=== PATIENT | male | born 1945 | race Hispanic/Latino ===

== ENCOUNTER 2018-03-08 10:30 | Inpatient (IN) | payer OTHER ==
[~2018-03-08] VITALS: Ht 152.4 cm; Wt 85.7 kg
[~2018-03-08 10:30] MED LIST: ASPIRIN81 M1 PO; ATORVASTATIN CA20 MG PO; BACTRIM DS TAB1 EACH PO; CEFTIN500 MG PO; CIPRO500 MG PO; FINASTERIDE5 MG PO; FLOMAX0.4 MG PO; FORTAMET500 MG PO; FUROSEMIDE40 MG PO; GABAPENTIN100 MG PO; GLIPIZIDE ER2.5 MG PO; GLIPIZIDE XL2.5 MG PO; GLUCOPHAGE500 MG PO; HEMOCYTE PLUS1 EACH PO; KLOR-CON 1010 MEQ PO; LISINOPRIL20 MG PO; METOPROLOL TART25 MG PO; RANEXA500 MG PO; SIMVASTATIN20 MG PO; TYLENOL PM EX-1 EACH PO; VICODIN HP TAB1 EACH PO
[2018-03-08] MEDS ORDERED: ASPIRIN 81 MG CHEW TAB PO STA (11:04)
[2018-03-08 11:33] LABS: BASOPHILS % 0.5 % (0.0-1.0); EOSINOPHILS # (AUTO) 0.2 (0.0-0.4); EOSINOPHILS % 2.9 % (0.0-6.0); HEMATOCRIT 39.6 % (38.2-49.6); HEMOGLOBIN 13.1 g/dL (14.0-18.0); LYMPHOCYTES # (AUTO) 1.6 (1.0-3.2); LYMPHOCYTES % 19.4 % (18.0-39.1); MEAN CORPUSCULAR HEMOGLOBIN 30.8 pg (28-32); MEAN CORPUSCULAR HGB CONC 33.1 g/dL (31-35); MONOCYTES # (AUTO) 0.6 (0.2-0.8); MONOCYTES % 6.7 % (4.4-11.3); NEUTROPHILS # (AUTO) 5.8 (2.1-6.9); NEUTROPHILS % 69.8 % (38.7-80.0); PLATELET COUNT 236 x10e3/uL (140-360); RED BLOOD COUNT 4.26 x10e6/uL (4.3-5.7); RED CELL DISTRIBUTION WIDTH 13.4 % (11.7-14.4)
--- NOTE | 2018-03-08 11:44 | Diagnostic Imaging Report ---
PROCEDURE: Frontal and lateral views of the chest. COMPARISON: Chest radiograph 05/01/2015 INDICATIONS: COUGH/SOB/FLUID ON LUNGS FINDINGS: Lines/tubes: None. Lungs: The lungs are moderately inflated. There is central pulmonary venous congestion with diffuse interstitial opacities. Pleura: There is no pleural effusion or pneumothorax. Heart and mediastinum: Stable mild enlargement of the cardiac silhouette. CABG clips. Bones: No acute bony abnormality. Median sternotomy wires. IMPRESSION: Findings suggestive of cardiogenic interstitial edema. Dictated by: Naresh Butt M.D. on 03/08/2018 at 11:48 Electronically approved by: Naresh Butt M.D. on 03/08/2018 at 11:48
[2018-03-08 11:49] LABS: ALANINE AMINOTRANSFERASE 22 IU/L (0-55); ALBUMIN 3.8 g/dL (3.5-5.0); ALBUMIN/GLOBULIN RATIO 0.9 (0.8-2.0); ALKALINE PHOSPHATASE 104 IU/L (40-150); ANION GAP 18.1 mmol/L (8-16); BLOOD UREA NITROGEN 16 mg/dL (7-26); BUN/CREATININE RATIO 16 (6-25); CALCIUM 9.8 mg/dL (8.4-10.2); CARBON DIOXIDE 21 mmol/L (22-29); CHLORIDE 104 mmol/L (98-107); CREATINE KINASE 115 IU/L (30-200); CREATININE, SERUM 1.02 mg/dL (0.72-1.25); EST GLOMERULAR FILTRATION RATE > 60 ML/MIN (60-); GLUCOSE 161 mg/dL (74-118); POTASSIUM 4.1 mmol/L (3.5-5.1); SODIUM 139 mmol/L (136-145)
[2018-03-08 14:00] VITALS: BP 133/68
[2018-03-08 14:31] VITALS: BP 133/68
[2018-03-08] MEDS ORDERED: XOPENEX HFA15 GM INH (15:18)
[2018-03-08] MEDS ORDERED: LASIX40 MG PO (15:18)
[2018-03-08] MEDS ORDERED: GLIMEPIRIDE2 MG PO (15:18)
[2018-03-08] MEDS ORDERED: KLOR-CON 1010 MEQ PO (15:18)
[2018-03-08] MEDS ORDERED: LOSARTAN POTASS25 MG PO (15:18)
[2018-03-08] MEDS ORDERED: BENZONATATE100 MG PO (15:18)
[2018-03-08] MEDS ORDERED: ACETAMINOPHEN325 M1 PO (15:18)
[2018-03-08] MEDS ORDERED: CEFDINIR300 MG PO (15:18)
[2018-03-08] MEDS ORDERED: NITROSTAT0.4 MG SL (15:35)
[2018-03-08] MEDS ORDERED: NITROGLYCERIN 0.4 MG SUBL SL PRN (16:15)
[2018-03-08] MEDS ORDERED: LEVALBUTEROL 15 GM AERO IH PRN (16:15)
[2018-03-08] MEDS ORDERED: LEVALBUTEROL TARTRATE INH PRN (16:15)
[2018-03-08] MEDS ORDERED: BENZONATATE 100 MG CAP PO PRN (16:15)
[2018-03-08] MEDS ORDERED: ACETAMINOPHEN 325 MG TAB PO PRN (16:15)
[2018-03-08] MEDS: INSULIN LISPRO 100 UNIT/1 ML 3ML VIAL SQ SCH ×2 (16:30→21:39)
[2018-03-08] MEDS ORDERED: INSULIN LISPRO 100 UNIT/1 ML 3ML VIAL SQ SCH (16:30)
[2018-03-08] MEDS ORDERED: DEXTROSE 50% SYRINGE 50 ML IV PRN (16:30)
[2018-03-08] MEDS ORDERED: NON-FORMULARY MEDICATION (Aspirin 81 MG) PO SCH (17:00)
[2018-03-08 17:08] VITALS: BP 137/71
[2018-03-08] MEDS: FUROSEMIDE INJ 10 MG/ML 4 ML VIAL IV SCH (17:30)
[2018-03-08] MEDS: ASPIRIN 81 MG CHEW TAB PO SCH (17:30)
[2018-03-08] MEDS: RANOLAZINE 500 MG TABSR PO SCH (17:32)
[2018-03-08 19:50] LABS: CREATINE KINASE 80 IU/L (30-200)
[2018-03-08 20:00] VITALS: BP 110/55
[2018-03-08 20:50] VITALS: BP 110/55
[2018-03-08] MEDS: ATORVASTATIN 20 MG TAB PO SCH (21:39)
[2018-03-09] VITALS (8 sets, daily range): BP systolic 110–163; BP diastolic 61–80
[2018-03-09 03:59] LABS: CREATINE KINASE MB 0.7 ng/mL (0-5.0)
[2018-03-09] MEDS ORDERED: NON-FORMULARY MEDICATION (Potassium Chloride (Klor-Con 10) 10 MEQ) PO SCH (09:00)
--- NOTE | 2018-03-09 09:34 | History and Physical ---
PCP: Dr. Slava Silva CHIEF COMPLAINT: Shortness of breath. HISTORY: A 72-year-old male with chronic congestive heart failure with history of bypass surgery back in 2008, 3-vessel bypass. Because he was drinking a lot of water at home, he developed vascular congestion. He went to the emergency room for evaluation per his PCP after a chest x-ray showed that he is having increasing fluid retention. Chest x-ray showed vascular congestion. No consolidation. The patient's laboratory is WBC is 8.2. Patient is stable at this time. IV Lasix was given and the patient is doing much better. PAST MEDICAL HISTORY: Hypertension, congestive heart failure, diabetes, type 2, hyperlipidemia, coronary artery disease with previous bypass surgery. PAST SURGICAL HISTORY: Coronary artery bypass surgery in 2008 of 3 vessels. SOCIAL HISTORY: The patient is an ex-smoker. He quit years ago. No alcohol consumption. ALLERGIES: NO KNOWN ALLERGIES. HOME MEDICATIONS: List reviewed. REVIEW OF SYSTEMS: As mentioned. Cough, leg swelling. No abdominal or chest pain. PHYSICAL EXAMINATION VITAL SIGNS: Temperature is 98, blood pressure 142/80, pulse rate 62, respirations 18. GENERAL: The patient is in no acute distress. He is awake. HEENT: Normocephalic, atraumatic and anicteric. NECK: Supple grossly. No JVD. PULMONARY: Diminished breath sounds at bases with some rales. CARDIOVASCULAR: S1 and S2. Regular rhythm. ABDOMEN: Soft and unremarkable. Obese. EXTREMITIES: Trace edema. NEUROLOGIC: There is no focal deficit. LABORATORY: Reviewed. The WBC is 8.2, hemoglobin 13, hematocrit 39, and platelets 236,000. Sodium 139, potassium 4.1, chloride 104, bicarb 21, BUN 16, creatinine 1, glucose is 161. IMPRESSION: Congestive heart failure, [id number] systolic dysfunction. PLAN: Observation. Resume home medications. Insulin sliding scale coverage. CT of the chest without contrast. Will monitor the patient closely. Patient is in observation. Job#: [id number] [facility]
[2018-03-09] MEDS: ASPIRIN 81 MG CHEW TAB PO SCH ×2 (10:25→17:16)
[2018-03-09] MEDS: LOSARTAN POTASSIUM 25 MG TAB PO SCH (10:25)
[2018-03-09] MEDS: INSULIN LISPRO 100 UNIT/1 ML 3ML VIAL SQ SCH ×4 (10:25→21:10)
[2018-03-09] MEDS: LISINOPRIL 10 MG TAB PO SCH (10:25)
[2018-03-09] MEDS: FUROSEMIDE INJ 10 MG/ML 4 ML VIAL IV SCH ×2 (10:25→17:16)
[2018-03-09] MEDS: GLIMEPIRIDE 2 MG TAB PO SCH (10:25)
[2018-03-09] MEDS: POTASSIUM CHLORIDE 10 MEQ TABCR PO SCH (10:25)
[2018-03-09] MEDS: RANOLAZINE 500 MG TABSR PO SCH ×2 (10:26→17:16)
--- NOTE | 2018-03-09 11:03 | Diagnostic Imaging Report ---
PROCEDURE: CT CHEST WITHOUT CONTRAST CT scan of the chest WITHOUT intravenous contrast, using standard protocol. TECHNIQUE: The chest was scanned utilizing a multidetector helical scanner from the apex to the level of the adrenal glands. No IV contrast was administered because of referring physician request. Coronal and sagittal multiplanar reformations were obtained. COMPARISON: Chest radiograph 03/08/2018. INDICATIONS: short of breath FINDINGS: Lines/tubes: None. Lungs and Airways: Traction bronchiectasis with interlobular septal thickening, ground glass opacities and multiple stacked juxtapleural cysts in a honeycombing configuration without a definite apical-basal gradient. No airspace consolidation or gross mass lesion. Pleura: No pleural effusion or pneumothorax. Heart and mediastinum: Postsurgical changes of the mediastinum related to coronary artery bypass graft. Normal heart size. No pericardial effusion. No axillary, hilar, or mediastinal lymphadenopathy. The esophagus is mildly patulous. Great vessel origins are normal in caliber with a common origin of the innominate and left common carotid artery from the aortic arch. Atherosclerotic calcification of the aortic arch and solomon coronary arteries. Soft tissues: Normal. Abdomen: Visualized portions of the liver, gallbladder, spleen, pancreas, and adrenal glands are unremarkable. Bones: No osseous destructive lesions. Postsurgical changes of median sternotomy. Diffuse osteopenia with multilevel degenerative disc changes of the partially visualized lower cervical and thoracic spine. IMPRESSION: Pulmonary findings compatible with interstitial lung disease, specifically usual interstitial pneumonia (UIP). This may be idiopathic, or seen in the setting of collagen vascular disease or drug toxicities (amiodarone, bleomycin). Atherosclerotic vascular disease status post CABG. Dictated by: Manav Greco M.D. on 03/09/2018 at 11:07 Electronically approved by: Manav Greco M.D. on 03/09/2018 at 11:07
--- NOTE | 2018-03-09 12:41 | Consultation ---
DATE OF CONSULTATION: March 08, 2018 CARDIOLOGY CONSULTATION REASON FOR CONSULTATION: CHF. CONSULTING PHYSICIAN: Dr. Kin Skinner. HPI: This is a 72-year-old male that presented with shortness of breath. According to the patient, he was having coughing, shortness of breath, and orthopnea. He went to see his PCP and he was told he got some fluid in his lungs and was asked to go to the emergency room for further evaluation. He has a history of chronic diastolic CHF and CAD. He follows up with Dr. Manav Santo, cardiology in the clinic. He denied any chest pain, any dizziness, any diaphoresis or headache. Troponin was negative. EKG showed normal sinus rhythm with no ST abnormalities. BNP was 105. He had chest x-ray done that showed some central pulmonary venous congestion and with final findings of cardiogenic interstitial edema. PAST MEDICAL HISTORY: CHF, hypertension, diabetes, asthma, CAD, hyperlipidemia, prostate hypertrophy, obesity, fatty liver, and neuropathy. PAST SURGICAL HISTORY: Appendectomy and CABG. FAMILY HISTORY: Positive for diabetes and hypertension. SOCIAL HISTORY: He lives at home with family. He quit smoking 20 years ago. MEDICATIONS: He was on Ranexa, potassium, nitroglycerin, metformin, losartan, Xopenex, glimepiride, Lasix, Omnicef, benzonatate, atorvastatin, aspirin, Tylenol, and finasteride. ALLERGIES: HE IS ALLERGIC TO IODINE. REVIEW OF SYSTEMS: Negative except those mentioned above. PHYSICAL EXAMINATION VITAL SIGNS: Temperature 97, heart rate 64, blood pressure 131/77, respirations 18, oxygen saturation 95% on room air. GENERAL: He is obese, awake, alert, and oriented x3. HEENT: Mucous membrane moist. NECK: Supple. LUNGS: Bilateral with decreased breath sounds. CARDIOVASCULAR: S1 and S2 present. ABDOMEN: Soft. NEUROLOGIC: Intact. EXTREMITIES: With no edema. LABORATORY DATA: Sodium 139, potassium 4.1, chloride 104, CO2 of 21, BUN 16, creatinine 1.02, glucose 161. White blood cells 8.24, hemoglobin 13.1, hematocrit 39.6, platelets 236. IMPRESSION 1. Chronic diastolic congestive heart failure. 2. Coronary artery disease with coronary artery bypass graft. 3. Diabetes. 4. Hypertension. 5. Hyperlipidemia. 6. Obesity. ASSESSMENT AND PLAN: Pending echo to assess the LV and the valve function. Due to the shortness of breath, we will go ahead and get a CT chest to rule out any PE. We will continue diuretic, AYAN and add low dose beta-vidal. Further cardiac workup pending clinical course. Thank you for this consultation. DICTATED BY ESTEFANÍA CRAIN NP Job#: [id number] VAS
[2018-03-09] MEDS: ATORVASTATIN 20 MG TAB PO SCH (20:49)
[2018-03-10] VITALS: BP 104/53
[2018-03-10 04:00] VITALS: BP 142/68
[2018-03-10 07:15] VITALS: BP 134/69
[2018-03-10] MEDS: INSULIN LISPRO 100 UNIT/1 ML 3ML VIAL SQ SCH ×2 (07:30→11:30)
[2018-03-10 07:48] VITALS: BP 134/69
[2018-03-10] MEDS ORDERED: CARVEDILOL 3.125 MG TAB PO SCH (09:00)
[2018-03-10] MEDS: GLIMEPIRIDE 2 MG TAB PO SCH (09:09)
[2018-03-10] MEDS: ASPIRIN 81 MG CHEW TAB PO SCH (09:09)
[2018-03-10] MEDS: LOSARTAN POTASSIUM 25 MG TAB PO SCH (09:09)
[2018-03-10] MEDS: FUROSEMIDE INJ 10 MG/ML 4 ML VIAL IV SCH (09:09)
[2018-03-10] MEDS: RANOLAZINE 500 MG TABSR PO SCH (09:10)
[2018-03-10] MEDS: LISINOPRIL 10 MG TAB PO SCH (09:10)
[2018-03-10] MEDS: POTASSIUM CHLORIDE 10 MEQ TABCR PO SCH (09:11)
[2018-03-10 11:58] VITALS: BP 102/61
[2018-03-10] MEDS ORDERED: LEVOFLOXACIN 500 MG TAB PO ONE ×2 (14:30→15:00)
[2018-03-10 15:15] VITALS: BP 125/73
[2018-03-10] MEDS ORDERED: COREG3.125 MG PO (15:20)
[2018-03-10] MEDS ORDERED: TESSALON PERLE100 MG PO (15:21)
[2018-03-10] MEDS ORDERED: LEVAQUIN250 MG PO (15:22)
== END 2018-03-10 16:09 | disposition home or self-care (01) | DRG 293 ==
LOC: ER 10:30 → ERHOLD 12:31 → MED/SURG3 13:41
PROVIDERS: ADMIT Internal Medicine; ATTEND Internal Medicine
DX: I11.0 Hypertensive heart disease with heart failure (principal); I50.33 Acute on chronic diastolic (congestive) heart failure; I25.10 Atherosclerotic heart disease of native coronary artery without angina pectoris; E11.9 Type 2 diabetes mellitus without complications; Z87.891 Personal history of nicotine dependence; Z95.1 Presence of aortocoronary bypass graft; E78.5 Hyperlipidemia, unspecified; E66.9 Obesity, unspecified; Z68.38 Body mass index [BMI] 38.0-38.9, adult
CPT/HCPCS: 36415; 71046; 71250; 80053; 82550; 82553; 82948; 83735; 83880; 84484; 85025; 93005; 93306; 96365; 99284; J1940

== ENCOUNTER 2018-09-22 22:57 | Emergency (ER) | payer OTHER ==
[~2018-09-22] VITALS: Ht 152.4 cm; Wt 85.7 kg
[~2018-09-22 22:57] MED LIST changes: +ACETAMINOPHEN325 M1 PO; +BENZONATATE100 MG PO; +CEFDINIR300 MG PO; +COREG3.125 MG PO; +GLIMEPIRIDE2 MG PO; +LASIX40 MG PO; +LEVAQUIN250 MG PO; +LOSARTAN POTASS25 MG PO; +NITROSTAT0.4 MG SL; +TESSALON PERLE100 MG PO; +XOPENEX HFA15 GM INH
--- NOTE | 2018-09-23 01:22 | Diagnostic Imaging Report ---
CHEST 2 VIEWS, Technique: CHEST 2 VIEWS Comparison: 03/09/2018 Clinical history: Cough DISCUSSION: Stable mildly enlarged cardiomediastinal silhouette status post median sternotomy. Low lung volumes with unchanged coarse bilateral reticular opacities, likely related to scarring/fibrosis. No effusion or pneumothorax. IMPRESSION: Stable chest. Signed by: Dr Dorothy Michaels MD on 09/23/2018 1:19 AM
[2018-09-23 01:26] VITALS: BP 127/79
== END 2018-09-23 01:36 | disposition home or self-care (01) ==
LOC: ER 22:57
DX: R05 Cough (principal); J45.20 Mild intermittent asthma, uncomplicated
CPT/HCPCS: 71046; 99283

== ENCOUNTER 2018-12-22 19:20 | Observation (INO) | payer OTHER ==
[~2018-12-22] VITALS: Ht 152.4 cm; Wt 85.7 kg
[2018-12-22 20:15] LABS: BASOPHILS % 0.3 % (0.0-1.0); EOSINOPHILS # (AUTO) 0.2 (0.0-0.4); EOSINOPHILS % 2.1 % (0.0-6.0); HEMATOCRIT 39.6 % (38.2-49.6); LYMPHOCYTES # (AUTO) 0.7 (1.0-3.2); LYMPHOCYTES % 9.1 % (18.0-39.1); MEAN CORPUSCULAR HEMOGLOBIN 29.9 pg (28-32); MEAN CORPUSCULAR HGB CONC 32.8 g/dL (31-35); MONOCYTES # (AUTO) 0.4 (0.2-0.8); MONOCYTES % 5.7 % (4.4-11.3); NEUTROPHILS # (AUTO) 6.2 (2.1-6.9); NEUTROPHILS % 82.3 % (38.7-80.0); PLATELET COUNT 159 x10e3/uL (140-360); RED BLOOD COUNT 4.35 x10e6/uL (4.3-5.7); RED CELL DISTRIBUTION WIDTH 14.5 % (11.7-14.4)
[2018-12-22 20:22] LABS: CLARITY,URINE SL CLOUDY (CLEAR); COLOR,URINE YELLOW (YELLOW)
[2018-12-22 20:23] LABS: BILIRUBIN,URINE NEGATIVE (NEGATIVE); KETONES,URINE NEGATIVE (NEGATIVE); LEUKOCYTE ESTERASE ,URINE TRACE (NEGATIVE); NITRITE,URINE NEGATIVE (NEGATIVE); PROTEIN,URINE DIPSTICK TRACE (NEGATIVE); URINE UROBILINOGEN 0.2 mg/dL (0.2 - 1)
[2018-12-22 20:25] LABS: INR 1.01; PROTHROMBIN TIME 13.8 seconds (11.9-14.5)
[2018-12-22 20:29] LABS: MAGNESIUM 1.9 MG/DL (1.3-2.1)
[2018-12-22 20:32] LABS: BACTERIA,URINE MODERATE /HPF; EPITHELIAL CELLS,URINE FEW /LPF; RBC,URINE 0-5 /HPF (0-5)
[2018-12-22 20:33] LABS: ALANINE AMINOTRANSFERASE 11 IU/L (0-55); ALBUMIN 3.7 g/dL (3.5-5.0); ALKALINE PHOSPHATASE 74 IU/L (40-150); ANION GAP 15.1 mmol/L (8-16); BLOOD UREA NITROGEN 16 mg/dL (7-26); BUN/CREATININE RATIO 20 (6-25); CALCIUM 9.4 mg/dL (8.4-10.2); CARBON DIOXIDE 24 mmol/L (22-29); CHLORIDE 99 mmol/L (98-107); CREATINE KINASE 52 IU/L (30-200); CREATININE, SERUM 0.81 mg/dL (0.72-1.25); EST GLOMERULAR FILTRATION RATE > 60 ML/MIN (60-); GLUCOSE 124 mg/dL (74-118); POTASSIUM 3.1 mmol/L (3.5-5.1); SODIUM 135 mmol/L (136-145)
[2018-12-22 20:38] LABS: AMYLASE 84 U/L (25-125); LIPASE 90 U/L (8-78)
--- NOTE | 2018-12-22 21:26 | Diagnostic Imaging Report ---
EXAMINATION: CHEST 2 VIEWS INDICATION: Chest pain. COMPARISON: Chest x-ray 09/23/2018. CT chest 03/09/2018. FINDINGS: PA and lateral views TUBES and LINES: Median sternotomy wires and mediastinal clips are in place. LUNGS: Lungs are not well inflated. Stable findings of pulmonary fibrosis with UIP appearance based on CT chest 03/09/2018. There is no evidence of pneumonia or pulmonary edema. PLEURA: No pleural effusion or pneumothorax. HEART AND MEDIASTINUM: Cardiac size is mildly enlarged. BONES AND SOFT TISSUES: No acute osseous lesion. Soft tissues are unremarkable. UPPER ABDOMEN: No free air under the diaphragm. IMPRESSION: Unchanged pulmonary fibrosis. New underlying pneumonia is difficult to evaluate given the extensive pulmonary fibrosis. Signed by: Dr. Omid Mcgee M.D. on 12/22/2018 9:23 PM
[2018-12-22] MEDS ORDERED: POTASSIUM CHLORIDE 20 MEQ TAB CR PO STA (21:53)
[2018-12-22] MEDS ORDERED: SODIUM CHLORIDE FLUSH 10 ML SYR INJ PRN (22:00)
[2018-12-22] MEDS: AZITHROMYCIN 500MG/NS 250 ML 250 ML IV SCH (22:00)
[2018-12-22] MEDS ORDERED: ASPIRIN 81 MG CHEW TAB PO ONE (22:00)
[2018-12-22] MEDS ORDERED: ONDANSETRON HCL INJ 2MG/ML 2ML 2 MG/ML VIAL IV PRN (22:00)
[2018-12-22] MEDS: CEFTRIAXONE SOD 1 GM/NS 50 ML 50 ML IV SCH (22:29)
--- NOTE | 2018-12-22 23:28 | NUR ---
Received report from SERAFIN Brewer nurse. Patient came via wheelchair. Patient in no pain or distress. call light within reach. Patient is A&Ox3.
[2018-12-22 23:50] VITALS: BP 145/64
[2018-12-22 23:53] VITALS: BP 145/64
[2018-12-23] VITALS (7 sets, daily range): BP systolic 115–145; BP diastolic 62–81
[2018-12-23 04:59] LABS: CREATINE KINASE MB 1.2 ng/mL (0-5.0)
[2018-12-23 06:01] LABS: BASOPHILS % 0.4 % (0.0-1.0); EOSINOPHILS # (AUTO) 0.2 (0.0-0.4); EOSINOPHILS % 2.8 % (0.0-6.0); HEMATOCRIT 37.8 % (38.2-49.6); HEMOGLOBIN 12.4 g/dL (14.0-18.0); LYMPHOCYTES # (AUTO) 0.9 (1.0-3.2); LYMPHOCYTES % 16.9 % (18.0-39.1); MEAN CORPUSCULAR HEMOGLOBIN 30.2 pg (28-32); MEAN CORPUSCULAR HGB CONC 32.8 g/dL (31-35); MONOCYTES # (AUTO) 0.4 (0.2-0.8); MONOCYTES % 8.2 % (4.4-11.3); NEUTROPHILS # (AUTO) 3.8 (2.1-6.9); NEUTROPHILS % 71.1 % (38.7-80.0); PLATELET COUNT 142 x10e3/uL (140-360); RED BLOOD COUNT 4.11 x10e6/uL (4.3-5.7); RED CELL DISTRIBUTION WIDTH 14.4 % (11.7-14.4)
[2018-12-23 06:21] LABS: ANION GAP 13.2 mmol/L (8-16); BLOOD UREA NITROGEN 12 mg/dL (7-26); BUN/CREATININE RATIO 15 (6-25); CALCIUM 9.2 mg/dL (8.4-10.2); CARBON DIOXIDE 25 mmol/L (22-29); CHLORIDE 103 mmol/L (98-107); CREATININE, SERUM 0.79 mg/dL (0.72-1.25); EST GLOMERULAR FILTRATION RATE > 60 ML/MIN (60-); GLUCOSE 133 mg/dL (74-118); POTASSIUM 4.2 mmol/L (3.5-5.1); SODIUM 137 mmol/L (136-145)
[2018-12-23] MEDS ORDERED: POTASSIUM CHLORIDE 20 MEQ TAB CR PO SCH (07:00)
--- NOTE | 2018-12-23 07:11 | NUR ---
Gave report to oncoming nurse. Call light within reach. Patient in bed.
--- NOTE | 2018-12-23 08:44 | Diagnostic Imaging Report ---
EXAMINATION: CHEST SINGLE (PORTABLE) INDICATION: Shortness of breath. COMPARISON: Chest radiograph 12/22/2018. CT chest 03/09/2018. FINDINGS: TUBES and LINES: Median sternotomy wires and mediastinal clips are in place. LUNGS: Lungs are not well inflated. Stable findings of pulmonary fibrosis with UIP appearance based on CT chest 03/09/2018. No new consolidation. PLEURA: No pleural effusion or pneumothorax. HEART AND MEDIASTINUM: Cardiac size is mildly enlarged. BONES AND SOFT TISSUES: No acute osseous abnormality. UPPER ABDOMEN: No free air under the diaphragm. IMPRESSION: Unchanged pulmonary fibrosis although superimposed pneumonia is difficult to exclude. No new consolidation. Signed by: Dr. Adelso Moon MD on 12/23/2018 8:40 AM
[2018-12-23] MEDS: AZITHROMYCIN 500MG/NS 250 ML 250 ML IV SCH (08:48)
[2018-12-23] MEDS ORDERED: FUROSEMIDE INJ 10 MG/ML 4 ML VIAL IV SCH (09:00)
--- NOTE | 2018-12-23 11:18 | NUR ---
SW met with patient to notify him of the OBSERVATION status. SW provided him with the [facility] letter in which he signed and copy placed in chart.
[2018-12-23] MEDS ORDERED: LEVALBUTEROL 15 GM AERO IH PRN (13:15)
[2018-12-23] MEDS ORDERED: DEXTROSE 50% SYRINGE 50 ML IV PRN (13:15)
[2018-12-23] MEDS ORDERED: ACETAMINOPHEN 325 MG TAB PO PRN (13:15)
[2018-12-23] MEDS ORDERED: BENZONATATE 100 MG CAP PO PRN (13:15)
[2018-12-23] MEDS: METHYLPREDNISOLONE SOD SUCC 40 MG/ML VIAL 1ML IV SCH ×2 (14:33→21:21)
[2018-12-23 14:59] LABS: CREATINE KINASE MB 1.2 ng/mL (0-5.0)
[2018-12-23] MEDS ORDERED: GUAIFENESIN/CODEINE 10 ML CUP PO PRN (15:45)
--- NOTE | 2018-12-23 16:03 | Diagnostic Imaging Report ---
EXAM: CT Chest without contrast INDICATION: Shortness of breath. COMPARISON: Chest radiograph 12/23/2018. TECHNIQUE: Chest was scanned utilizing a multidetector helical scanner from the lung apex through the level of the adrenal glands without administration of IV contrast. Coronal and sagittal reformations were obtained. Routine protocol was performed. RADIATION DOSE: Total DLP: 431.7 mGy*cm Dose modulation, iterative reconstruction, and/or weight based adjustment of the mA/kV was utilized to reduce the radiation dose to as low as reasonably achievable. COMPLICATIONS: None FINDINGS: LINES/ TUBES: None. LUNGS AND AIRWAYS: The central airways are patent. There are bilateral diffuse findings of pulmonary fibrosis with peripheral predominant interstitial opacities, architectural distortion, and bronchiectasis. There is associated honeycombing, most pronounced within the right greater than left upper lobes, middle lobe, and right lower lobe. There are multifocal groundglass opacities, for example in the right lower lobe on series 3, image 53, right upper lobe on image 24, and left upper lobe on image 45. No evidence of lobar consolidative opacity. Diffuse opacity limits evaluation for underlying pulmonary nodule. PLEURA: The pleural spaces are clear. HEART AND MEDIASTINUM: The thyroid gland is normal. No mediastinal, hilar or axillary lymphadenopathy. Subcentimeter mediastinal lymph nodes, not meeting size criteria for enlargement. There is mild cardiomegaly. No evidence of pericardial effusion. Extensive atherosclerotic coronary calcifications. Scattered atherosclerotic calcifications of the thoracic aorta and branch vessels. UPPER ABDOMEN: Limited non-contrast views of the upper abdomen. Subcentimeter hypodensity within the spleen is incompletely characterized. BONES: The visualized bony thorax is within normal limits. SOFT TISSUES: Unremarkable. IMPRESSION: Findings of diffuse fibrotic interstitial lung disease. Differential includes UIP versus fibrotic NSIP. Multifocal patchy ground glass opacities may be secondary to fibrotic lung changes, although superimposed pneumonia is possible in the appropriate clinical context. Extensive coronary atherosclerosis. Signed by: Dr. Adelso Moon MD on 12/23/2018 4:00 PM
[2018-12-23] MEDS: INSULIN LISPRO 100 UNIT/1 ML 3ML VIAL SQ SCH ×2 (16:35→21:22)
[2018-12-23] MEDS ORDERED: IPRATROPIUM BROMIDE 0.03% NASAL SPRAY 30ML SCH (17:00)
[2018-12-23] MEDS: PANTOPRAZOLE 40 MG 10ML VIAL IV SCH (17:00)
[2018-12-23] MEDS: METFORMIN HCL 500 MG TAB PO SCH (17:48)
[2018-12-23] MEDS: ASPIRIN 81 MG CHEW TAB PO SCH (17:48)
[2018-12-23] MEDS: FLUTICASONE PROPIONATE NASAL SPRAY NS SCH (17:48)
[2018-12-23] MEDS: CARVEDILOL 3.125 MG TAB PO SCH (17:48)
[2018-12-23] MEDS: RANOLAZINE 500 MG TABSR PO SCH (17:49)
--- NOTE | 2018-12-23 19:14 | History and Physical ---
PRIMARY CARE PHYSICIAN: CHIEF COMPLAINT: Shortness of breath. HISTORY: A 73-year-old male with baseline chronic congestive heart failure with history of coronary artery disease, three vessel coronary artery bypass graft surgery back in 2008, came in with increasing shortness of breath. The patient does have a history of COPD and also pulmonary fibrosis. He was an ex-smoker. The patient has some wheezing. He did not have any fever. Currently, the patient did not require any oxygen. He is breathing much better after IV Lasix. The patient is otherwise stable. PAST MEDICAL HISTORY: Congestive heart failure, coronary artery disease with bypass graft surgery, diabetes type 2, dyslipidemia, hypertension, COPD. PAST SURGICAL HISTORY: Coronary artery bypass surgery in 2009, three vessel bypass. SOCIAL HISTORY: The patient quit smoking many, many years ago. No alcohol. No recreational drugs. ALLERGIES: TO IODINE. HOME MEDICATION: List reviewed. REVIEW OF SYSTEMS: Wheezing, shortness of breath and cough. PHYSICAL EXAMINATION: VITAL SIGNS: Temperature is 97, blood pressure 118/62, pulse rate 72, respirations 18. GENERAL: The patient is not in acute distress. He is awake. HEENT: Normocephalic, atraumatic. Anicteric. NECK: Supple grossly. PULMONARY: Diminished breath sounds bilaterally with some rhonchi and wheezing. CARDIOVASCULAR: S1, S2. Regular rate and rhythm. ABDOMEN: Soft, nontender, and nondistended. EXTREMITIES: No cyanosis or edema. NEUROLOGIC: No focal deficit. Chest x-ray is pulmonary fibrosis. IMPRESSION: 1. Acute exacerbation of pulmonary fibrosis associated with rhonchi, wheezing and cough on history and examination. 2. Compensated congestive heart failure. 3. Multiple chronic baseline problems. PLAN: Continue with IV Solu-Medrol. Nebulizer treatment. Antibiotics. CT of the chest without contrast. Resume home medication. MD JAGDEEP Zhou/DINAH /[id number]
--- NOTE | 2018-12-23 19:40 | Consultation ---
DATE OF CONSULTATION: Pulmonary Critical Care Consultation CHIEF COMPLAINT: Cough and dyspnea. HISTORY OF PRESENT ILLNESS: The patient is a 73-year-old man. He has a history of prior coronary artery disease and a CABG. He also has a history of hypertension and diabetes. He has had interstitial changes on his x-ray and CT scan for several years. He uses some nebulizers at home as well as inhalers. He now complains of worsening cough. He notes that the cough was so bad he had some vomiting. He reports some postnasal drainage and rhinorrhea. He also reports some heartburn and indigestion. He notes some dyspnea with exertion as well. He came to the emergency department complaining of dyspnea and cough. He received some Solu-Medrol along with antibiotics and bronchodilators. He reports some improvement with this. PAST SURGICAL HISTORY: 1. Status post coronary artery bypass grafting. 2. Status post appendectomy. PAST MEDICAL HISTORY: 1. Hypertension. 2. Diabetes. 3. Prostatic hypertrophy. 4. Interstitial lung disease. SOCIAL HISTORY: The patient quit smoking 20 years ago. He lives with his family. He is not an active drinker. FAMILY HISTORY: Positive for diabetes and hypertension. ALLERGIES: HE IS ALLERGIC TO IODINE. REVIEW OF SYSTEMS: The patient does not complain of any fever or headache. He has no neck pain. He has sore throat. He is not having any swollen glands. He has no chest pain. He does note cough and some dyspnea. He has some vomiting. He also notes heartburn and indigestion. He denies any leg edema. He denies any focal neurological complaints. PHYSICAL EXAMINATION: VITAL SIGNS: Blood pressure is 115/75 and the pulse is 75. The saturation is 93%. HEENT: Shows no facial swelling or erythema. The nasal mucosa is normal. The oropharynx is normal. LYMPHATIC: Shows no submandibular, cervical, or supraclavicular adenopathy. CARDIAC: Reveals regular rate and rhythm with normal S1 and S2. There are no murmurs or rubs. LUNGS: Auscultation of lungs reveals crackles in both lung napoles. There is no wheezing. ABDOMEN: Soft, nontender. There is no rebound or guarding. EXTREMITIES: Show no leg edema or calf tenderness. There is no cyanosis or clubbing. SKIN: Shows no rashes. NEUROLOGIC: Shows no focal abnormalities. LABORATORY DATA: White blood cell count is 5.4 with hemoglobin of 12.2 and platelet count of 142. Electrolytes; BUN and creatinine all within normal limits. PT and PTT are normal. Urinalysis is normal. RADIOGRAPHIC DATA: Chest x-ray shows pulmonary fibrosis. IMPRESSION: 1. Usual interstitial pneumonitis of unclear etiology. 2. Gastroesophageal reflux, which could be contributing to cough. 3. Rhinosinusitis and postnasal drainage. 4. Chronic diastolic congestive heart failure. 5. Hypertension. 6. Diabetes. 7. Coronary artery disease. PLAN: 1. Continue antibiotics and corticosteroids. 2. Taper corticosteroids as quickly as possible. 3. Proton pump inhibitors and gastroesophageal reflux precautions to prevent any further acid reflux, which could be contributing to coughing. 4. Atrovent and Flonase nasal sprays to decrease any rhinosinusitis, which could be contributing to cough. 5. Robitussin with codeine p.r.n. as needed for cough. 6. The patient will need repeat PFTs as well as a bronchoscopy with a transbronchial biopsy to rule out any indolent infections. This can be scheduled as an outpatient. MD JILLIAN Georges/HEMAL /[id number]
--- NOTE | 2018-12-23 19:48 | NUR ---
GOT REPORT FROM PREVIOUS NURSE. CALL LIGHT WITHIN REACH. AT BEDSIDE. NO PAIN OR DISTRESS.
[2018-12-23] MEDS ORDERED: ATORVASTATIN 20 MG TAB PO SCH (21:00)
[2018-12-23] MEDS: CEFTRIAXONE SOD 1 GM/NS 50 ML 50 ML IV SCH (21:23)
[2018-12-24 00:09] VITALS: BP 131/73
[2018-12-24 04:07] VITALS: BP 125/69
--- NOTE | 2018-12-24 07:00 | NUR ---
Gave report to oncoming nurse. Patient in bed. Call light within reach.
[2018-12-24] MEDS: INSULIN LISPRO 100 UNIT/1 ML 3ML VIAL SQ SCH (07:40)
--- NOTE | 2018-12-24 07:47 | NUR ---
patient resting in bed, Alert with no distress, call light in reach.
[2018-12-24] MEDS: ASPIRIN 81 MG CHEW TAB PO SCH (08:18)
[2018-12-24] MEDS: METHYLPREDNISOLONE SOD SUCC 40 MG/ML VIAL 1ML IV SCH (08:18)
[2018-12-24] MEDS: AZITHROMYCIN 500MG/NS 250 ML 250 ML IV SCH (08:18)
[2018-12-24] MEDS: CARVEDILOL 3.125 MG TAB PO SCH (08:18)
[2018-12-24] MEDS: METFORMIN HCL 500 MG TAB PO SCH (08:18)
[2018-12-24] MEDS: RANOLAZINE 500 MG TABSR PO SCH (08:19)
[2018-12-24 08:31] VITALS: BP 124/60
[2018-12-24] MEDS: FLUTICASONE PROPIONATE NASAL SPRAY NS SCH (08:50)
[2018-12-24] MEDS ORDERED: FINASTERIDE 5 MG TAB PO SCH (09:00)
[2018-12-24] MEDS: PANTOPRAZOLE 40 MG 10ML VIAL IV SCH (09:00)
[2018-12-24] MEDS ORDERED: FUROSEMIDE 40 MG TAB PO SCH (09:00)
[2018-12-24] MEDS ORDERED: LOSARTAN POTASSIUM 25 MG TAB PO SCH (09:00)
[2018-12-24 09:16] VITALS: BP 124/60
[2018-12-24] MEDS ORDERED: CLARITIN10 MG PO (09:38)
[2018-12-24] MEDS ORDERED: DOXYCYCLINE HY100 MG PO (09:39)
--- NOTE | 2018-12-24 11:27 | NUR ---
patient discharged home. AAOx3, Prescription given and he verbalized understanding, IV canula removed with tip intact no ss of infiltration noted, Tele box returned. denies any pain or SOB, transported via to front lobby, his at bed side
--- NOTE | 2018-12-24 19:08 | Discharge Summary ---
The patient is on observation. PRIMARY CARE PHYSICIAN: CONSULTING PHYSICIAN: José Miguel Santo M.D. FINAL DIAGNOSES: 1. Acute exacerbation of chronic obstructive pulmonary disease. 2. Acute exacerbation of pulmonary fibrosis. 3. Community-acquired pneumonia. The patient's CT scan of the chest showed diffuse fibrotic interstitial lung disease. Multi focal patchy ground-glass opacity secondary to fibrotic lung. Possible superimposed atypical pneumonia. HOSPITAL COURSE: A 73-year-old male came in with sinus congestion, cough that is dry and nonproductive. The patient did not have any fever. White cell count is normal. The patient does have baseline COPD and pulmonary fibrosis. The patient is stable otherwise. He did not have any fluid overload. The patient was given steroids, antibiotics, and he responded well. His lung wheezing had now subsided. The patient is stable, discharged home today. Follow up with Dr. José Miguel Santo next week. DISCHARGE MEDICATIONS: As follows: 1. Resume home medication. 2. Medrol Dosepak as instructed. 3. Claritin 10 mg daily. 4. Flonase 1 spray b.i.d. 5. Doxycycline monohydrate 100 mg twice a day, 14 days. 6. Cheratussin AC p.r.n. for cough. 7. Breo one puff daily. The patient is otherwise stable. Discharged home. Follow up as an outpatient with Dr. José Miguel Santo as planned. MD JAGDEEP Zhou/DINAH /[id number]
== END 2018-12-24 12:44 | disposition home or self-care (01) ==
LOC: ER 19:20 → ERHOLD 22:36 → IMCU 23:28
PROVIDERS: ADMIT Internal Medicine; ATTEND Internal Medicine
DX: J44.0 Chronic obstructive pulmonary disease with (acute) lower respiratory infection (principal); J18.9 Pneumonia, unspecified organism; J44.1 Chronic obstructive pulmonary disease with (acute) exacerbation; J84.10 Pulmonary fibrosis, unspecified; I11.0 Hypertensive heart disease with heart failure; E11.9 Type 2 diabetes mellitus without complications; Z95.1 Presence of aortocoronary bypass graft; Z87.891 Personal history of nicotine dependence; Z83.3 Family history of diabetes mellitus; Z82.49 Family history of ischemic heart disease and other diseases of the circulatory system; I25.10 Atherosclerotic heart disease of native coronary artery without angina pectoris; K21.9 Gastro-esophageal reflux disease without esophagitis; J32.9 Chronic sinusitis, unspecified; I50.32 Chronic diastolic (congestive) heart failure; J30.9 Allergic rhinitis, unspecified; Z79.82 Long term (current) use of aspirin; Z79.84 Long term (current) use of oral hypoglycemic drugs
CPT/HCPCS: 36415 ×3; 71045; 71046; 71250; 80048; 80053; 81001; 82150; 82550 ×2; 82553 ×2; 82948 ×2; 83605; 83690; 83735; 83880; 84100; 84484 ×2; 85025 ×2; 85610; 85730; 87040; 87400; 93005; 99284; G0378 ×3; J0456 ×2; J0696 ×2; J1940; J2405; J2920 ×2

== ENCOUNTER 2019-03-24 00:15 | Emergency (ER) | payer OTHER ==
[~2019-03-24] VITALS: Ht 152.4 cm; Wt 85.7 kg
[~2019-03-24 00:15] MED LIST changes: +CLARITIN10 MG PO; +DOXYCYCLINE HY100 MG PO
[2019-03-24] MEDS: DIAZEPAM 5 MG TAB PO SCH ×2 (00:54→00:56)
[2019-03-24 01:32] LABS: BILIRUBIN,URINE NEGATIVE (NEGATIVE); CLARITY,URINE CLEAR (CLEAR); COLOR,URINE YELLOW (YELLOW); KETONES,URINE NEGATIVE (NEGATIVE); LEUKOCYTE ESTERASE ,URINE TRACE (NEGATIVE); NITRITE,URINE NEGATIVE (NEGATIVE); PROTEIN,URINE DIPSTICK NEGATIVE (NEGATIVE); URINE UROBILINOGEN 0.2 mg/dL (0.2 - 1)
[2019-03-24 01:55] LABS: BACTERIA,URINE FEW /HPF; EPITHELIAL CELLS,URINE FEW /LPF; WBC,URINE (MAN) 0-5 /HPF (0-5)
[2019-03-24 02:26] VITALS: BP 105/61
== END 2019-03-24 02:45 | disposition home or self-care (01) ==
LOC: ER 00:15
DX: M54.5 Low back pain (principal); N30.91 Cystitis, unspecified with hematuria
CPT/HCPCS: 81001; 99283

== ENCOUNTER 2019-04-21 21:56 | Emergency (ER) | payer MEDICARE, OTHER ==
[~2019-04-21] VITALS: Ht 152.4 cm; Wt 85.7 kg
[2019-04-21 22:41] LABS: BILIRUBIN,URINE NEGATIVE (NEGATIVE); CLARITY,URINE CLEAR (CLEAR); COLOR,URINE YELLOW (YELLOW); KETONES,URINE NEGATIVE (NEGATIVE); LEUKOCYTE ESTERASE ,URINE SMALL (NEGATIVE); NITRITE,URINE NEGATIVE (NEGATIVE); PROTEIN,URINE DIPSTICK NEGATIVE (NEGATIVE); URINE UROBILINOGEN 0.2 mg/dL (0.2 - 1)
[2019-04-21 22:58] LABS: BACTERIA,URINE MODERATE /HPF; EPITHELIAL CELLS,URINE MODERATE /LPF
--- NOTE | 2019-04-22 00:11 | NUR ---
RAD CALLED FOR UPDATE ON RAD REPORT, WILL CALL RADIOLOGIST
--- NOTE | 2019-04-22 00:51 | Diagnostic Imaging Report ---
Lumbar Spine Radiographs: 5 views HISTORY: Pain COMPARISON: None available. DISCUSSION: There are 6 non-rib bearing lumbar vertebral bodies. Mild grade 1 anterolisthesis of L4 in relation to L5. Multilevel degenerative disc disease and spondylosis of the imaged thoracolumbar spine. Slight retrolisthesis of L2 in relation to L3. Bilateral facet arthropathy at L4-L5 and L5-S1. Atherosclerotic calcifications of the abdominal aorta. IMPRESSION: Mild grade 1 anterolisthesis of L4 in relation to L5 Signed by: Dr. Yesy Urena M.D. on 04/22/2019 12:48 AM
[2019-04-22] MEDS ORDERED: ULTRAM50 MG PO (01:24)
[2019-04-22] MEDS ORDERED: KEFLEX500 MG PO (01:24)
== END 2019-04-22 01:57 | disposition home or self-care (01) ==
LOC: ER 21:56
DX: M54.5 Low back pain (principal); S39.012A Strain of muscle, fascia and tendon of lower back, initial encounter; N30.91 Cystitis, unspecified with hematuria
CPT/HCPCS: 72110; 81001; 99283

== ENCOUNTER 2019-05-23 10:12 | Inpatient (IN) | payer MEDICARE, OTHER ==
[~2019-05-23] VITALS: Ht 152.4 cm; Wt 65.3 kg
[~2019-05-23 10:12] MED LIST changes: +KEFLEX500 MG PO; +ULTRAM50 MG PO
[2019-05-23] MEDS ORDERED: ASPIRIN 81 MG CHEW TAB PO ONE (10:30)
[2019-05-23 11:39] LABS: BASOPHILS % 0.3 % (0.0-1.0); EOSINOPHILS # (AUTO) 0.4 (0.0-0.4); EOSINOPHILS % 3.1 % (0.0-6.0); HEMATOCRIT 38.1 % (38.2-49.6); HEMOGLOBIN 12.4 g/dL (14.0-18.0); LYMPHOCYTES # (AUTO) 1.9 (1.0-3.2); LYMPHOCYTES % 15.5 % (18.0-39.1); MEAN CORPUSCULAR HEMOGLOBIN 28.6 pg (28-32); MEAN CORPUSCULAR HGB CONC 32.5 g/dL (31-35); MEAN CORPUSCULAR VOLUME 87.8 fL (81-99); MONOCYTES # (AUTO) 0.8 (0.2-0.8); MONOCYTES % 6.6 % (4.4-11.3); NEUTROPHILS # (AUTO) 9.2 (2.1-6.9); NEUTROPHILS % 73.9 % (38.7-80.0); PLATELET COUNT 196 x10e3/uL (140-360); RED BLOOD COUNT 4.34 x10e6/uL (4.3-5.7); RED CELL DISTRIBUTION WIDTH 15.2 % (11.7-14.4)
[2019-05-23 11:40] LABS: BILIRUBIN,URINE NEGATIVE (NEGATIVE); CLARITY,URINE SL CLOUDY (CLEAR); COLOR,URINE YELLOW (YELLOW); KETONES,URINE NEGATIVE (NEGATIVE); LEUKOCYTE ESTERASE ,URINE TRACE (NEGATIVE); NITRITE,URINE NEGATIVE (NEGATIVE); PROTEIN,URINE DIPSTICK TRACE (NEGATIVE); URINE UROBILINOGEN 2 mg/dL (0.2 - 1)
--- NOTE | 2019-05-23 11:40 | Diagnostic Imaging Report ---
EXAM: CT Abdomen and Pelvis WITHOUT intravenous contrast INDICATION: Abdominal pain COMPARISON: Chest CT of 12/23/2018 TECHNIQUE: Abdomen and pelvis were scanned utilizing a multidetector helical scanner from the lung base to the pubic symphysis without administration of IV contrast. Coronal and sagittal reformations were obtained. IV CONTRAST: None ORAL CONTRAST: Water COMPLICATIONS: None RADIATION DOSE: Total DLP: 388.4 mGy*cm Dose modulation, iterative reconstruction, and/or weight based adjustment of the mA/kV was utilized to reduce the radiation dose to as low as reasonably achievable. FINDINGS: LOWER THORAX: Extensive bibasilar groundglass opacities and peripheral subpleural cystic changes in a honeycombing distribution. Extensive traction bronchiectasis. Scattered more focal nodularity at the posterior right middle lobe is new from the chest CT of 12/23/2018. Atherosclerotic coronary artery calcifications. HEPATOBILIARY: No focal hepatic lesions. The gallbladder appears unremarkable. SPLEEN: No splenomegaly. PANCREAS: No focal masses or ductal dilatation. ADRENALS: No adrenal nodules. KIDNEYS/URETERS: No renal calculi or hydronephrosis. Bilateral subcentimeter renal hypodensities likely cysts. PELVIC ORGANS/BLADDER: Prostatomegaly to 6.1 cm with coarse internal calcifications and soft tissue component indenting the posterior bladder. PERITONEUM / RETROPERITONEUM: No free air or fluid. LYMPH NODES: No lymphadenopathy. VESSELS: Diffuse atherosclerotic calcifications of the nonaneurysmal abdominal aorta and major branches. GI TRACT: Extensive descending and sigmoid colon diverticulosis. No CT evidence of diverticulitis. No abnormal bowel wall thickening. No bowel obstruction. BONES AND SOFT TISSUES: Diffuse osteopenia. No acute osseous injury. Grade 1 anterolisthesis at L4-5. Degenerative changes of the visualized spine. No suspicious lytic or blastic lesions. Partially visualized sternotomy wires. IMPRESSION: No renal calculi or hydronephrosis. Prostatomegaly to 6.1 cm with coarse internal calcifications and soft tissue component indenting the posterior bladder. Diverticulosis with no CT evidence of diverticulitis. Severe interstitial lung disease in a UIP pattern. More focal nodularity at the posterior right middle lobe is new from the chest CT of 12/23/2018 and likely represents a more acute infectious/inflammatory process. Follow-up chest CT is recommended in 12 months to assess for stability. Signed by: Brenda Gracia MD on 05/23/2019 11:37 AM
[2019-05-23 11:50] LABS: ALANINE AMINOTRANSFERASE 16 IU/L (0-55); ALBUMIN 3.2 g/dL (3.5-5.0); ALBUMIN/GLOBULIN RATIO 0.9 (0.8-2.0); ALKALINE PHOSPHATASE 86 IU/L (40-150); AMYLASE 58 U/L (25-125); ANION GAP 14.3 mmol/L (8-16); BLOOD UREA NITROGEN 11 mg/dL (7-26); BUN/CREATININE RATIO 14 (6-25); CALCIUM 9.5 mg/dL (8.4-10.2); CARBON DIOXIDE 30 mmol/L (22-29); CHLORIDE 95 mmol/L (98-107); CREATINE KINASE 42 IU/L (30-200); CREATININE, SERUM 0.76 mg/dL (0.72-1.25); EST GLOMERULAR FILTRATION RATE > 60 ML/MIN (60-); GLUCOSE 97 mg/dL (74-118); LIPASE 17 U/L (8-78); POTASSIUM 3.3 mmol/L (3.5-5.1); SODIUM 136 mmol/L (136-145)
[2019-05-23 12:01] LABS: BACTERIA,URINE MODERATE /HPF; EPITHELIAL CELLS,URINE FEW /LPF
[2019-05-23] MEDS ORDERED: SODIUM CHLORIDE 0.9% 1000ML 1,000 ML IV SCH (12:57)
[2019-05-23] MEDS ORDERED: ONDANSETRON HCL INJ 2MG/ML 2ML 2 MG/ML VIAL IV PRN (13:00)
--- NOTE | 2019-05-23 13:30 | NUR ---
PT UPDATED ON PLAN OF CARE AND INTENT TO ADMIT, VERBALIZED UNDERSTANDING; NO NEEDS VOICED AT THIS TIME, DENIES C/O PAIN OR ANY DISCOMFORTS.
[2019-05-23] MEDS ORDERED: DEXTROSE 50% SYRINGE 50 ML IV PRN (14:15)
[2019-05-23 15:28] VITALS: BP 135/76
[2019-05-23 15:33] VITALS: BP 135/76
--- NOTE | 2019-05-23 15:45 | NUR ---
patient received from ER via stretcher. see admit assess. vitals stable with no distress.
[2019-05-23 16:00] VITALS: BP 135/76
[2019-05-23] MEDS: INSULIN REGULAR, HUMAN 100 UNIT/1 ML 3ML VIAL SQ SCH ×2 (16:09→21:50)
[2019-05-23] MEDS ORDERED: TRAMADOL HCL 50 MG TAB PO PRN (17:15)
[2019-05-23] MEDS ORDERED: ACETAMINOPHEN 325 MG TAB PO PRN (17:15)
[2019-05-23] MEDS ORDERED: BENZONATATE 100 MG CAP PO PRN (17:15)
[2019-05-23] MEDS: CEFTRIAXONE SOD 1 GM/NS 50 ML 50 ML IV SCH (18:34)
[2019-05-23] MEDS: METHYLPREDNISOLONE SOD SUCC 40 MG/ML VIAL 1ML IV SCH (18:34)
[2019-05-23] MEDS: CARVEDILOL 3.125 MG TAB PO SCH (18:34)
[2019-05-23 21:00] VITALS: BP 111/65
[2019-05-23 21:41] VITALS: BP 111/65
[2019-05-23] MEDS: ATORVASTATIN 20 MG TAB PO SCH (22:04)
[2019-05-23] MEDS: AZITHROMYCIN 500MG/NS 250 ML 250 ML IV SCH (22:04)
[2019-05-23] MEDS: RANOLAZINE 500 MG TABSR PO SCH (22:05)
[2019-05-24] VITALS (8 sets, daily range): BP systolic 99–191; BP diastolic 53–96
[2019-05-24 05:04] LABS: BASOPHILS % 0.2 % (0.0-1.0); HEMATOCRIT 36.6 % (38.2-49.6); LYMPHOCYTES % 9.1 % (18.0-39.1); MEAN CORPUSCULAR HEMOGLOBIN 28.8 pg (28-32); MEAN CORPUSCULAR HGB CONC 32.8 g/dL (31-35); MONOCYTES # (AUTO) 0.2 (0.2-0.8); MONOCYTES % 1.8 % (4.4-11.3); NEUTROPHILS # (AUTO) 9.3 (2.1-6.9); NEUTROPHILS % 88.3 % (38.7-80.0); PLATELET COUNT 196 x10e3/uL (140-360); RED BLOOD COUNT 4.16 x10e6/uL (4.3-5.7)
[2019-05-24] MEDS: METHYLPREDNISOLONE SOD SUCC 40 MG/ML VIAL 1ML IV SCH ×2 (05:20→18:41)
[2019-05-24 05:21] LABS: ANION GAP 13.7 mmol/L (8-16); BLOOD UREA NITROGEN 10 mg/dL (7-26); BUN/CREATININE RATIO 14 (6-25); CALCIUM 9.2 mg/dL (8.4-10.2); CARBON DIOXIDE 26 mmol/L (22-29); CHLORIDE 101 mmol/L (98-107); CREATININE, SERUM 0.69 mg/dL (0.72-1.25); EST GLOMERULAR FILTRATION RATE > 60 ML/MIN (60-); GLUCOSE 171 mg/dL (74-118); POTASSIUM 3.7 mmol/L (3.5-5.1); SODIUM 137 mmol/L (136-145)
[2019-05-24] MEDS: INSULIN REGULAR, HUMAN 100 UNIT/1 ML 3ML VIAL SQ SCH ×4 (09:23→21:20)
[2019-05-24] MEDS: FINASTERIDE 5 MG TAB PO SCH (09:28)
[2019-05-24] MEDS: CARVEDILOL 3.125 MG TAB PO SCH ×2 (09:28→16:32)
[2019-05-24] MEDS: LORATADINE 10 MG TAB PO SCH (09:28)
[2019-05-24] MEDS: LOSARTAN POTASSIUM 25 MG TAB PO SCH (09:28)
[2019-05-24] MEDS: RANOLAZINE 500 MG TABSR PO SCH ×2 (09:28→21:57)
--- NOTE | 2019-05-24 14:22 | Diagnostic Imaging Report ---
EXAM: CT Chest WITHOUT intravenous contrast 05/24/2019 11:52 AM INDICATION: Shortness of breath COMPARISON: Chest CT of 12/23/2018, CT abdomen pelvis of 05/23/2019 TECHNIQUE: Chest was scanned utilizing a multidetector helical scanner from the lung apex through the level of the adrenal glands without administration of IV contrast. Coronal and sagittal reformations were obtained. Routine protocol was performed. IV CONTRAST: None RADIATION DOSE: Total DLP: 432.0 mGy*cm. Dose modulation, iterative reconstruction, and/or weight based adjustment of the mA/kV was utilized to reduce the radiation dose to as low as reasonably achievable. COMPLICATIONS: None FINDINGS: LINES/ TUBES: None. LUNGS AND AIRWAYS: The central airways are patent. No focal consolidation. Again seen are findings of bilateral pulmonary fibrosis in a UIP pattern with peripheral subpleural cystic changes and a honeycombing pattern, extensive traction bronchiectasis, and lower lobe dependent groundglass opacities. These findings are slightly increased compared to the prior chest CT of 12/23/2018, particularly at the anterior right upper lobe and lingula. More focal nodularity at the posterior right middle lobe appears unchanged from the abdomen and pelvis CT of 05/23/2019 but is new compared to the chest CT of 12/23/2018 and may represent a more acute infectious or inflammatory process. PLEURA: No pleural effusion. No pneumothorax. HEART AND MEDIASTINUM: Unremarkable thyroid gland. No supraclavicular, axillary, or mediastinal lymphadenopathy. Atherosclerotic calcifications of the aorta and coronary arteries. Multichamber cardiomegaly. No pericardial effusion. Patulous distal esophagus. UPPER ABDOMEN: Limited noncontrast enhanced views of the upper abdomen demonstrate no focal abnormality of the partially visualized liver, spleen, gallbladder, pancreas, or adrenals. The kidneys are not visualized. BONES: Diffuse osteopenia. Status post median sternotomy. No acute osseous injury. Degenerative changes of the visualized spine. No suspicious lytic or blastic lesions. SOFT TISSUES: Unremarkable. 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 More focal nodularity at the posterior right middle lobe may represent a more acute infectious/inflammatory process. Chest CT is recommended in 12 months to assess for stability. Atherosclerotic arterial calcifications, including of the coronary arteries. Multichamber cardiomegaly. Signed by: Brenda Gracia MD on 05/24/2019 2:17 PM
[2019-05-24] MEDS ORDERED: LEVALBUTEROL 15 GM AERO IH PRN (15:00)
--- NOTE | 2019-05-24 16:22 | Consultation ---
DATE OF CONSULTATION: Pulmonary Critical Care Consultation CHIEF COMPLAINT: Abnormal chest x-ray. HISTORY OF PRESENT ILLNESS: The patient is a 74-year-old man. The patient had a prior coronary artery bypass grafting. His most recent catheterization about a year ago showed no recurrent disease. He also has a history of usual interstitial pneumonitis documented on chest x-ray and chest CT. It has been stable radiographically for several years. He uses oxygen at home as well as inhalers and nebulizers. He has required occasional steroids and antibiotics. He came to the hospital because of some abdominal pain. He also reports some weight loss. He had a CT scan of the abdomen and pelvis that showed an enlarged prostate as well as some diverticulosis. The radiologist also noticed his usual interstitial pneumonitis pattern. He had a new focal area of inflammation in the posterior right middle lobe. He denies any worsening cough or dyspnea. He does not complain of fevers. PAST SURGICAL HISTORY: 1. Status post coronary artery bypass grafting. 2. Status post appendectomy. PAST MEDICAL HISTORY: 1. Usual interstitial pneumonitis. 2. Prostatic hypertrophy. 3. Hypertension. 4. Diabetes. SOCIAL HISTORY: The patient quit smoking 20 years ago. He lives with his family. He is not an active drinker. FAMILY HISTORY: Family history is positive for diabetes and hypertension. ALLERGIES: THE PATIENT IS ALLERGIC TO IODINE. REVIEW OF SYSTEMS: The patient is afebrile. He has no headache. He has no neck pain. He is not complaining of swollen glands. He does note baseline cough, but no phlegm production. He does report some baseline dyspnea on exertion, although has not worsened. He has no chest pain. He has no nausea or vomiting. He did have some abdominal pain, but it is improved. He has no leg edema. He does report some weight loss. PHYSICAL EXAMINATION: VITAL SIGNS: The patient is afebrile. The blood pressure is 191/56 with an elevated heart rate of 123. HEENT: Shows no facial swelling or erythema. CARDIAC: Reveals regular rate and rhythm with normal S1 and S2. LUNGS: Auscultation of lungs reveals crackles in both lung napoles. ABDOMEN: Soft and nontender. There is no rebound or guarding. EXTREMITIES: Shows no leg edema or calf tenderness. There is no cyanosis or clubbing. SKIN: Shows no rashes. NEUROLOGICAL: Shows no focal abnormalities. IMPRESSION: 1. Usual interstitial pneumonitis. 2. Chronic obstructive pulmonary disease. 3. Obstructive sleep apnea. 4. History of coronary artery disease. 5. Prostatic hypertrophy. 6. Diabetes. 7. Hypertension. PLAN: 1. Continue current inhaler regimen. 2. Repeat CT scan of the chest without contrast. 3. Complete course of p.o. antibiotics. 4. Monitor blood sugars. 5. Follow Urology recommendations regarding prostate enlargement and UTI. MD JILLIAN Georges/DINAH /[id number]
[2019-05-24] MEDS ORDERED: MAGNESIUM HYDROXIDE 30 ML UDC PO PRN (17:30)
[2019-05-24] MEDS: CEFTRIAXONE SOD 1 GM/NS 50 ML 50 ML IV SCH (18:41)
[2019-05-24] MEDS: AZITHROMYCIN 500MG/NS 250 ML 250 ML IV SCH (20:09)
[2019-05-24] MEDS: BENZONATATE 100 MG CAP PO SCH (20:40)
[2019-05-24] MEDS: ATORVASTATIN 20 MG TAB PO SCH (20:45)
[2019-05-25] VITALS: BP 101/62
[2019-05-25 04:00] VITALS: BP 108/71
[2019-05-25] MEDS: METHYLPREDNISOLONE SOD SUCC 40 MG/ML VIAL 1ML IV SCH ×2 (05:17→17:40)
[2019-05-25 08:19] VITALS: BP 130/75
[2019-05-25 08:53] VITALS: BP 130/75
[2019-05-25] MEDS: CARVEDILOL 3.125 MG TAB PO SCH ×2 (09:10→17:47)
[2019-05-25] MEDS: LORATADINE 10 MG TAB PO SCH (09:10)
[2019-05-25] MEDS: FINASTERIDE 5 MG TAB PO SCH (09:10)
[2019-05-25] MEDS: BENZONATATE 100 MG CAP PO SCH ×2 (09:10→17:47)
[2019-05-25] MEDS: RANOLAZINE 500 MG TABSR PO SCH (09:10)
[2019-05-25] MEDS: LOSARTAN POTASSIUM 25 MG TAB PO SCH (09:10)
[2019-05-25] MEDS: INSULIN REGULAR, HUMAN 100 UNIT/1 ML 3ML VIAL SQ SCH ×2 (11:44→16:30)
--- NOTE | 2019-05-25 12:08 | NUR ---
EDUCATED ABOUT IMM, SIGNED, FILED IN CHART, WITH COPY LEFT WITH FAMILY AT BEDSIDE.
[2019-05-25 12:20] VITALS: BP 158/85
[2019-05-25 16:03] VITALS: BP 127/72
--- NOTE | 2019-05-25 17:29 | Progress Note ---
DATE: SUBJECTIVE: The patient has some dyspnea that is baseline. His cough is at baseline. PHYSICAL EXAMINATION: VITAL SIGNS: The patient is afebrile. The blood pressure is 158/85, saturation is 100% on 2 L. CARDIAC: Reveals regular rate and rhythm with normal S1, S2. LUNGS: Auscultation of lungs shows few crackles at the bases. There is no wheezing. ABDOMEN: Soft, nontender. There is no rebound or guarding. EXTREMITIES: Show no leg edema or calf tenderness. There is no cyanosis, clubbing. SKIN: Shows no rashes. NEUROLOGICAL: Shows no focal abnormalities. IMPRESSION: 1. Usual interstitial pneumonitis. 2. History of coronary artery disease. 3. Prostatic hypertrophy. 4. Diabetes. PLAN: 1. The patient can be discharged home. 2. Continue oxygen at home. 3. The patient should follow up with Dr. Santo in 1-2 weeks. We will arrange for a possible treatment with either . José Miguel Santo MD [facility]/MODL /[id number]
--- NOTE | 2019-05-25 18:42 | NUR ---
patient discharged home. Alert with no distress, iv canula removed, no ss of infiltration, prescription given, son at bed side to pick patient, transported via wheelchair with oxygen
--- NOTE | 2019-05-26 09:53 | Discharge Summary ---
PRIMARY CARE PHYSICIAN: CONSULTANTS: 1. Dr. José Miguel Santo. 2. Dr. Carlos Manuel Taveras. FINAL DIAGNOSES: 1. Atypical pneumonia. 2. Acute exacerbation of pulmonary fibrosis, idiopathic. 3. Urinary tract infection. SUMMARY: 74-years male with shortness of breath and developed abdominal pain after increasing cough. Dr. José Miguel Santo saw the patient. He has cleared the patient for discharge home. The patient is doing much better. Wheezing has subsided. The patient does not have any cough. He is comfortable. He will go home with azithromycin 250 mg daily for 7 days, Medrol Dosepak, steroids, Mucinex 600 mg twice a day and Cheratussin AC for cough. The patient is stable discharged home. Resume home medication. MD JAGDEEP Zhou/DINAH /[id number]
== END 2019-05-25 19:00 | disposition home or self-care (01) | DRG 196 ==
LOC: ER 10:12 → ERHOLD 13:27 → MED/SURG2 15:19
PROVIDERS: ADMIT Internal Medicine; ATTEND Internal Medicine
DX: J84.114 Acute interstitial pneumonitis (principal); J18.1 Lobar pneumonia, unspecified organism; N39.0 Urinary tract infection, site not specified; J44.0 Chronic obstructive pulmonary disease with (acute) lower respiratory infection; J84.112 Idiopathic pulmonary fibrosis; I25.10 Atherosclerotic heart disease of native coronary artery without angina pectoris; Z95.1 Presence of aortocoronary bypass graft; K57.90 Diverticulosis of intestine, part unspecified, without perforation or abscess without bleeding; E11.9 Type 2 diabetes mellitus without complications; R35.1 Nocturia; D64.9 Anemia, unspecified; E87.6 Hypokalemia; E66.9 Obesity, unspecified; Z68.28 Body mass index [BMI] 28.0-28.9, adult; N40.1 Benign prostatic hyperplasia with lower urinary tract symptoms; R39.14 Feeling of incomplete bladder emptying; G47.33 Obstructive sleep apnea (adult) (pediatric)
CPT/HCPCS: 36415; 71250; 74176; 80048; 80053; 81001; 82150; 82550; 82553; 82948; 83690; 83880; 84484; 85025; 93005; 99284; J0456; J0696; J2920; J7030

== ENCOUNTER 2020-06-08 15:05 | Observation (INO) | payer OTHER ==
[~2020-06-08] VITALS: Ht 152.4 cm; Wt 65.3 kg
[2020-06-08] MEDS: CEFTRIAXONE SOD 1 GM/NS 50 ML 50 ML IV SCH (05:45)
[2020-06-08] MEDS ORDERED: MORPHINE SULFATE 2 MG/ML SYR 1ML IV STA (15:21)
[2020-06-08] MEDS ORDERED: ONDANSETRON HCL INJ 2MG/ML 2ML 2 MG/ML VIAL IV STA (15:21)
[2020-06-08] MEDS ORDERED: PANTOPRAZOLE 40 MG 10ML VIAL IV STA (15:21)
[2020-06-08 15:42] LABS: BASOPHILS % 0.5 % (0.0-1.0); EOSINOPHILS # (AUTO) 0.2 (0.0-0.4); EOSINOPHILS % 2.1 % (0.0-6.0); HEMATOCRIT 38.4 % (38.2-49.6); HEMOGLOBIN 12.1 g/dL (14.0-18.0); LYMPHOCYTES # (AUTO) 2.1 (1.0-3.2); LYMPHOCYTES % 25.9 % (18.0-39.1); MEAN CORPUSCULAR HEMOGLOBIN 29.6 pg (28-32); MEAN CORPUSCULAR HGB CONC 31.5 g/dL (31-35); MEAN CORPUSCULAR VOLUME 93.9 fL (81-99); MONOCYTES # (AUTO) 0.4 (0.2-0.8); MONOCYTES % 5.2 % (4.4-11.3); NEUTROPHILS # (AUTO) 5.4 (2.1-6.9); NEUTROPHILS % 65.9 % (38.7-80.0); PLATELET COUNT 229 x10e3/uL (140-360); RED BLOOD COUNT 4.09 x10e6/uL (4.3-5.7); RED CELL DISTRIBUTION WIDTH 12.5 % (11.7-14.4)
[2020-06-08 15:46] LABS: BILIRUBIN,URINE NEGATIVE (NEGATIVE); CLARITY,URINE HAZY (CLEAR); COLOR,URINE YELLOW (YELLOW); KETONES,URINE NEGATIVE (NEGATIVE); LEUKOCYTE ESTERASE ,URINE MODERATE (NEGATIVE); NITRITE,URINE NEGATIVE (NEGATIVE); PROTEIN,URINE DIPSTICK NEGATIVE (NEGATIVE); URINE UROBILINOGEN 0.2 mg/dL (0.2 - 1)
[2020-06-08 15:51] LABS: BACTERIA,URINE MODERATE /HPF; EPITHELIAL CELLS,URINE FEW /LPF; WBC,URINE (MAN) 21-50 /HPF (0-5)
[2020-06-08 15:54] LABS: INR 0.94; PARTIAL THROMBOPLASTIN TIME 27.6 seconds (23.8-35.5); PROTHROMBIN TIME 13.1 seconds (11.9-14.5)
[2020-06-08 16:02] LABS: ALANINE AMINOTRANSFERASE 16 IU/L (0-55); ALBUMIN 4.2 g/dL (3.5-5.0); ALBUMIN/GLOBULIN RATIO 1.3 (0.8-2.0); ALKALINE PHOSPHATASE 127 IU/L (40-150); AMYLASE 78 U/L (25-125); ANION GAP 16.4 mmol/L (8-16); BLOOD UREA NITROGEN 12 mg/dL (7-26); BUN/CREATININE RATIO 15 (6-25); CALCIUM 9.7 mg/dL (8.4-10.2); CARBON DIOXIDE 38 mmol/L (22-29); CHLORIDE 87 mmol/L (98-107); CREATINE KINASE 28 IU/L (30-200); CREATININE, SERUM 0.78 mg/dL (0.72-1.25); EST GLOMERULAR FILTRATION RATE > 60 ML/MIN (60-); GLUCOSE 155 mg/dL (74-118); LIPASE 21 U/L (8-78); POTASSIUM 3.4 mmol/L (3.5-5.1); SODIUM 138 mmol/L (136-145)
[2020-06-08] MEDS ORDERED: ONDANSETRON HCL INJ 2MG/ML 2ML 2 MG/ML VIAL IV PRN ×2 (17:30→22:00)
[2020-06-08] MEDS ORDERED: CEFTRIAXONE SOD 1 GM/NS 50 ML 50 ML IV ONE (17:30)
[2020-06-08] MEDS ORDERED: ACETAMINOPHEN 325 MG TAB PO PRN (17:30)
[2020-06-08] MEDS ORDERED: SODIUM CHLORIDE 0.9% 1000ML 1,000 ML IV SCH (17:30)
[2020-06-08] MEDS ORDERED: DEXTROSE 50% SYRINGE 50 ML IV PRN (18:30)
[2020-06-08 20:00] VITALS: BP 138/93
[2020-06-08] MEDS: INSULIN LISPRO 100 UNIT/1 ML 3ML VIAL SQ SCH (21:00)
[2020-06-08] MEDS: ALBUTEROL/IPRATROPIUM 3 ML NEB NEB SCH (21:45)
[2020-06-08] MEDS ORDERED: ALBUTEROL/IPRATROPIUM 3 ML NEB NEB PRN (21:45)
[2020-06-08] MEDS: BENZONATATE 100 MG CAP PO SCH (21:45)
[2020-06-08] MEDS ORDERED: ACETAMINOPHEN 1000 MG/100 ML IV PRN (21:45)
[2020-06-08] MEDS ORDERED: NITROGLYCERIN 0.4 MG SUBL SL PRN (21:45)
[2020-06-08] MEDS: LORATADINE 10 MG TAB PO SCH (21:45)
[2020-06-08] MEDS ORDERED: AZITHROMYCIN 500MG/NS 250 ML 250 ML IV ONE (21:45)
[2020-06-08] MEDS ORDERED: BENZONATATE 100 MG CAP PO PRN (21:45)
[2020-06-08 22:00] VITALS: BP 138/93
[2020-06-08 22:14] LABS: CREATINE KINASE MB 1.3 ng/mL (0-5.0)
[2020-06-08] MEDS: KETOROLAC TROMETHAMINE 30 MG/ML VIAL IV PRN (22:20)
[2020-06-08] MEDS: TAMSULOSIN HCL 0.4 MG CAP PO SCH (22:26)
[2020-06-08] MEDS: CARVEDILOL 3.125 MG TAB PO SCH (22:26)
[2020-06-09] VITALS (8 sets, daily range): BP systolic 105–158; BP diastolic 73–88
[2020-06-09 04:35] LABS: BASOPHILS % 0.7 % (0.0-1.0); EOSINOPHILS # (AUTO) 0.2 (0.0-0.4); EOSINOPHILS % 3.7 % (0.0-6.0); HEMATOCRIT 34.5 % (38.2-49.6); HEMOGLOBIN 10.9 g/dL (14.0-18.0); LYMPHOCYTES # (AUTO) 1.8 (1.0-3.2); LYMPHOCYTES % 33.4 % (18.0-39.1); MEAN CORPUSCULAR HGB CONC 31.6 g/dL (31-35); MONOCYTES # (AUTO) 0.3 (0.2-0.8); MONOCYTES % 5.5 % (4.4-11.3); NEUTROPHILS # (AUTO) 3.1 (2.1-6.9); NEUTROPHILS % 56.3 % (38.7-80.0); PLATELET COUNT 163 x10e3/uL (140-360); RED BLOOD COUNT 3.63 x10e6/uL (4.3-5.7); RED CELL DISTRIBUTION WIDTH 12.3 % (11.7-14.4)
[2020-06-09 05:03] LABS: ALANINE AMINOTRANSFERASE 13 IU/L (0-55); ALBUMIN 3.5 g/dL (3.5-5.0); ALBUMIN/GLOBULIN RATIO 1.5 (0.8-2.0); ALKALINE PHOSPHATASE 98 IU/L (40-150); ANION GAP 12.2 mmol/L (8-16); BLOOD UREA NITROGEN 11 mg/dL (7-26); BUN/CREATININE RATIO 16 (6-25); CARBON DIOXIDE 38 mmol/L (22-29); CHLORIDE 89 mmol/L (98-107); CREATININE, SERUM 0.69 mg/dL (0.72-1.25); EST GLOMERULAR FILTRATION RATE > 60 ML/MIN (60-); GLUCOSE 98 mg/dL (74-118); POTASSIUM 3.2 mmol/L (3.5-5.1); SODIUM 136 mmol/L (136-145)
[2020-06-09 05:33] LABS: CREATINE KINASE MB 1.2 ng/mL (0-5.0)
[2020-06-09] MEDS: ALBUTEROL/IPRATROPIUM 3 ML NEB NEB SCH ×2 (06:44→13:57)
[2020-06-09] MEDS: KETOROLAC TROMETHAMINE 30 MG/ML VIAL IV PRN ×3 (07:05→23:50)
[2020-06-09] MEDS: INSULIN LISPRO 100 UNIT/1 ML 3ML VIAL SQ SCH ×4 (07:30→20:13)
[2020-06-09] MEDS: POTASSIUM CHLORIDE 10MEQ EA PO SCH (09:00)
[2020-06-09] MEDS ORDERED: POTASSIUM CHLORIDE 10MEQ EA PO ONE (09:45)
[2020-06-09] MEDS: AZITHROMYCIN 500MG/NS 250 ML 250 ML IV SCH (09:57)
[2020-06-09] MEDS: PANTOPRAZOLE 40 MG 10ML VIAL INJ SCH (09:57)
[2020-06-09] MEDS: FINASTERIDE 5 MG TAB PO SCH (09:58)
[2020-06-09] MEDS: ASPIRIN 81 MG ENTERIC COATED PO SCH ×2 (09:58→17:25)
[2020-06-09] MEDS: LORATADINE 10 MG TAB PO SCH (09:58)
[2020-06-09] MEDS: GLIMEPIRIDE 2 MG TAB PO SCH (09:58)
[2020-06-09] MEDS: RANOLAZINE 500 MG TABSR PO SCH ×2 (09:58→17:26)
[2020-06-09] MEDS: CARVEDILOL 3.125 MG TAB PO SCH ×2 (09:58→17:26)
[2020-06-09] MEDS: BENZONATATE 100 MG CAP PO SCH ×3 (09:58→20:19)
[2020-06-09] MEDS: TRAMADOL HCL 50 MG TAB PO PRN ×2 (11:29→20:19)
[2020-06-09] MEDS: LOSARTAN POTASSIUM 25 MG TAB PO SCH (12:12)
[2020-06-09] MEDS ORDERED: SODIUM CHLORIDE 0.9% 250ML 0 ML ONE (17:08)
[2020-06-09] MEDS: CEFTRIAXONE SOD 1 GM/NS 50 ML 50 ML IV SCH (18:00)
[2020-06-09] MEDS: TAMSULOSIN HCL 0.4 MG CAP PO SCH (20:19)
[2020-06-09] MEDS ORDERED: ATORVASTATIN 20 MG TAB PO SCH (21:00)
[2020-06-10] VITALS: BP 110/71
[2020-06-10 04:00] VITALS: BP 92/61
[2020-06-10] MEDS: CEFTRIAXONE SOD 1 GM/NS 50 ML 50 ML IV SCH (05:02)
[2020-06-10] MEDS: TRAMADOL HCL 50 MG TAB PO PRN (06:39)
[2020-06-10] MEDS: INSULIN LISPRO 100 UNIT/1 ML 3ML VIAL SQ SCH (07:30)
[2020-06-10] MEDS: BENZONATATE 100 MG CAP PO SCH (08:49)
[2020-06-10] MEDS: POTASSIUM CHLORIDE 10MEQ EA PO SCH (08:50)
[2020-06-10] MEDS: CARVEDILOL 3.125 MG TAB PO SCH (08:50)
[2020-06-10] MEDS: ASPIRIN 81 MG ENTERIC COATED PO SCH (08:50)
[2020-06-10] MEDS: LOSARTAN POTASSIUM 25 MG TAB PO SCH (08:50)
[2020-06-10] MEDS: FINASTERIDE 5 MG TAB PO SCH (08:50)
[2020-06-10] MEDS: RANOLAZINE 500 MG TABSR PO SCH (08:50)
[2020-06-10] MEDS: LORATADINE 10 MG TAB PO SCH (08:50)
[2020-06-10] MEDS: PANTOPRAZOLE 40 MG 10ML VIAL INJ SCH (08:51)
[2020-06-10] MEDS: AZITHROMYCIN 500MG/NS 250 ML 250 ML IV SCH (08:51)
[2020-06-10] MEDS: GLIMEPIRIDE 2 MG TAB PO SCH (08:51)
[2020-06-10 08:58] VITALS: BP 129/73
[2020-06-10] MEDS ORDERED: ONDANSETRON HCL 4 MG ORAL DISINTEGRATING TAB PO PRN (11:15)
[2020-06-11] MEDS ORDERED: PANTOPRAZOLE SOD 40 MG TABEC PO SCH (07:30)
== END 2020-06-10 11:54 | disposition home health service (06) ==
LOC: ER 15:38 → ERHOLD 17:23 → MED/SURG 18:38 → MED/SURG3 06-09 15:45
PROVIDERS: ADMIT Internal Medicine; ATTEND Internal Medicine
DX: J84.10 Pulmonary fibrosis, unspecified (principal); I25.10 Atherosclerotic heart disease of native coronary artery without angina pectoris; Z95.1 Presence of aortocoronary bypass graft; E78.5 Hyperlipidemia, unspecified; N40.0 Benign prostatic hyperplasia without lower urinary tract symptoms; I11.0 Hypertensive heart disease with heart failure; I50.32 Chronic diastolic (congestive) heart failure; E11.9 Type 2 diabetes mellitus without complications; N39.0 Urinary tract infection, site not specified; Z99.81 Dependence on supplemental oxygen; J44.9 Chronic obstructive pulmonary disease, unspecified; N41.9 Inflammatory disease of prostate, unspecified; Z11.59 Encounter for screening for other viral diseases
CPT/HCPCS: 36415 ×3; 71045; 74176; 80053 ×2; 81001; 82150; 82550 ×2; 82553 ×2; 82948 ×3; 83690; 83880; 84484 ×2; 85025 ×2; 85610; 85730; 87040; 87086; 87186; 93005; 93306; 97116; 97161; 99284; C9113 ×3; G0378 ×3; J0456 ×3; J0696 ×3; J1885 ×3; J2270; J2405; J7030; U0002; J7050

== ENCOUNTER 2020-07-16 13:50 | Emergency (ER) | payer OTHER ==
[~2020-07-16] VITALS: Ht 152.4 cm; Wt 65.3 kg
--- NOTE | 2020-07-16 15:58 | Diagnostic Imaging Report ---
EXAMINATION: RIBS UNILAT W/CXR INDICATION: Right rib pain COMPARISON: Chest radiograph 06/08/2020 FINDINGS: LINES/TUBES:None LUNGS:The lungs are moderately inflated. Unchanged bilateral predominantly peripheral interstitial opacities consistent with chronic interstitial lung disease. No new focal consolidation. PLEURA:No pleural effusion or pneumothorax. MEDIASTINUM:The cardiomediastinal silhouette appears unchanged in size and shape. BONES/SOFT TISSUES:Minimally displaced right fifth lateral rib fracture. No additional fractures identified. ABDOMEN:No free air under the diaphragm. IMPRESSION: Minimally displaced right fifth lateral rib fracture. Unchanged findings of chronic interstitial lung disease. Signed by: Brenda Gracia MD on 07/16/2020 3:55 PM
[2020-07-16] MEDS ORDERED: LIDOCAINE 4% PATCH TP ONE (16:00)
[2020-07-16] MEDS ORDERED: HYDROCODONE/APAP 5MG-325MG TAB PO ONE (16:00)
--- NOTE | 2020-07-16 18:42 | Emergency Department Note ---
History of Present Illnes History of Present Illness Chief Complaint: Skin Rash or Abscess History of Present Illness This is a 75 year old male Patient in from home with complaints of a very painful "knot" on the right side of his chest towards the bottom of his rib cage. Patient reports that he first noticed it yesterday as it being painful and states that it hurts to move and breathe. Patient has a history of pulmonary fibrosis and is oxygen dependent at home. Patient is a former smoker, quit in 2008. On palpation of the area, a subcutaneous crepitus or emphysema sensation is noted. Historian: Patient Arrival Mode: Car Admissions Specialist Required: No Onset (how long ago): day(s) (yesterday) Location: right ant chest wall Quality: pain Radiation: Reports non-radiation Severity: moderate Onset quality: sudden Timing of current episode: constant Progression: unchanged Chronicity: new Context: Denies recent illness, Denies trauma/injury Relieving factors: none Exacerbating factors: none Past Medical/Family History Physician Review I have reviewed the patient's past medical and family history. Any updates have been documented here. Past Medical History Recent Fever: No Clinical Suspicion of Infectio: No New/Unexplained Change in Ment: No Past Medical History: Hypertension, Diabetes, CHF, [place], Hyperlipedemia, Chronic Back Pain Other Medical History: HEART FAILURE PULMONARY FIBROSIS BPH Past Surgical History: Appendectomy, CABG, PCI Other Surgery: OPEN HEART SURGERY Social History Smoking Cessation: Former smoker Counseling Performed: No Alcohol Use: None Any Illegal Drug Use: No TB Exposure/Symptoms: No Physically hurt or threatened: No Family History Family history of heart diseas: No Other Last Tetanus: 2009 Any Pre-Existing Lines (PICC,: No Review of Systems Review of Systems Constitutional: Reports no symptoms EENTM: Reports no symptoms Cardiovascular: Reports no symptoms Respiratory: Reports no symptoms Gastrointestinal: Reports no symptoms Genitourinary: Reports no symptoms Musculoskeletal: Reports as per HPI Integumentary: Reports no symptoms Neurological: Reports no symptoms Psychological: Reports no symptoms Endocrine: Reports no symptoms Hematological/Lymphatic: Reports no symptoms Physical Exam Related Data Allergies: Coded Allergies: iodine (Verified Allergy, Mild, RASH, 06/08/20) Triage Vital Signs Vital Signs Date Time Temp Pulse Resp B/P (MAP) Pulse Ox O2 Delivery O2 Flow Rate FiO2 07/16/20 14:06 97.7 81 16 132/85 100 Vital signs reviewed: Yes Physical Exam CONSTITUTIONAL Constitutional: Present well-developed, Present well-nourished HENT HENT: Present normocephalic, Present atraumatic, Present oropharynx clear/moist, Present nose normal HENT L/R: Present left ext ear normal, Present right ext ear normal EYES Eyes: Reports PERRL, Reports conjunctivae normal NECK Neck: Present ROM normal PULMONARY Pulmonary: Present effort normal, Present breath sounds normal CARDIOVASCULAR Cardiovascular: Present regular rhythm, Present heart sounds normal, Present capillary refill normal, Present normal rate GASTROINTESTINAL Abdominal: Present soft, Present nontender, Present bowel sounds normal GENITOURINARY Genitourinary: Present exam deferred SKIN Skin: Present warm, Present dry MUSCULOSKELETAL Musculoskeletal: Present tenderness (right anterolateral lower chest wall, mild crepitus), Present swelling NEUROLOGICAL Neurological: Present alert, Present oriented x 3, Present no gross motor or sensory deficits PSYCHOLOGICAL Psychological: Present mood/affect normal, Present judgement normal Results Imaging Imaging results reviewed: Yes Impressions EXAMINATION: RIBS UNILAT W/CXR INDICATION: Right rib pain COMPARISON: Chest radiograph 06/08/2020 FINDINGS: LINES/TUBES:None LUNGS:The lungs are moderately inflated. Unchanged bilateral predominantly peripheral interstitial opacities consistent with chronic interstitial lung disease. No new focal consolidation. PLEURA:No pleural effusion or pneumothorax. MEDIASTINUM:The cardiomediastinal silhouette appears unchanged in size and shape. BONES/SOFT TISSUES:Minimally displaced right fifth lateral rib fracture. No additional fractures identified. ABDOMEN:No free air under the diaphragm. IMPRESSION: Minimally displaced right fifth lateral rib fracture. Unchanged findings of chronic interstitial lung disease. Signed by: Brenda Gracia MD on 07/16/2020 3:55 PM Assessment & Plan Medical Decision Making MDM atraumatic chest wall pain, likely rib fx ? from chronic cough - check rib series Reassessment Reassessment DC home, Lidoderm patches, Tyl #3, F/U PCP and Dr Jacqui Santo Assessment & Plan Final Impression: (1) Rib fracture Depart Disposition: HOME, SELF-CARE Last Vital Signs Date Time Temp Pulse Resp B/P (MAP) Pulse Ox O2 Delivery O2 Flow Rate FiO2 07/16/20 14:06 97.7 81 16 132/85 100 Home Meds Active Scripts Tramadol Hcl (ULTRAM) 50 Mg Tablet, 50 MG PO Q6HR PRN for Mild Pain (1-3) or Fever>100.8, #10 TAB Prov:MACIE ANN, 04/22/19 Reported Medications Loratadine (CLARITIN) 10 Mg Tablet, PO DAILY 12/24/18 Carvedilol (COREG) 3.125 Mg Tab, PO BID 03/10/18 Nitroglycerin (NITROSTAT) 0.4 Mg Tab.subl, 0.4 MG SL for CHEST PAIN 03/08/18 Levalbuterol Tartrate (XOPENEX HFA) 15 Gm Hfa.aer.ad, 15 GM INH Q4HR PRN for SHORTNESS OF BREATH 03/08/18 Acetaminophen (ACETAMINOPHEN) 325 Mg Tablet, 650 MG PO Q6H PRN for PAIN for 90 Days, TAB 03/08/18 Benzonatate (BENZONATATE) 100 Mg Capsule, 100 MG PO TID PRN for COUGH, CAP 03/08/18 Furosemide (LASIX) 40 Mg Tablet, 40 MG PO DAILY, #30 TAB 03/08/18 Potassium Chloride (KLOR-CON 10) 10 Meq Tablet.er, 10 MEQ PO DAILY 03/08/18 Glimepiride (GLIMEPIRIDE) 2 Mg Tablet, 0.5 MG PO DAILY, TAB 03/08/18 Finasteride (FINASTERIDE) 5 Mg Tablet, 5 MG PO DAILY, #30 TAB 01/20/15 Ranolazine (RANEXA) 500 Mg Tabsr, 1000 MG PO BID, #60 TAB 01/20/15 Atorvastatin Calcium (ATORVASTATIN CALCIUM) 20 Mg Tablet, 20 MG PO EVERY EVENING, 0 Refills 11/23/13 Aspirin (ASPIRIN) 81 Mg Tablet, 81 MG PO BID, 0 Refills 10/02/12 Medications in the ED Lidocaine 1 ea NOW ONCE TP Last administered on 07/16/20at 17:55; Admin Dose 1 EA; Start 07/16/20 at 16:00; Stop 07/16/20 at 16:01; Status DC Acetaminophen/ Hydrocodone Bitart 1 ea ONCE ONCE PO Last administered on 07/16/20at 17:55; Admin Dose 1 EA; Start 07/16/20 at 16:00; Stop 07/16/20 at 16:01; Status DC ELIOT NEAL MD Jul 16, 2020 18:41
--- OUTSIDE RECORDS SUMMARY | 2020-07-17 19:45 | XMS REPORT | Continuity of Care Document ---
Author Author [facility] t Organization [facility] Address [address] [place] [address] Phone Unavailable Care Team Providers Care Retail Pharmacy Merchandiser Name Role Phone FILIBERTO JURADO, MD HOLDEN PCP Chin NEAL Attphys Unavailable DORY LOPEZ Attphys Unavailable Wali GRAYSON Attphys Unavailable Jacqui HANNAH Attphys Unavailable DORY LOPEZ Admphys Unavailable Payers Payer Name Policy Type Policy Number Effective Date Expiration Date S daniella Cho Plus [id number] 2019 00:00:00 [facility] [employer] [place] [employer] [facility] [id number] 2018 00:00:00 [facility] Problems Condition Name Condition Details Condition Category Status Onset Date Resolution Date Last Treatment Date Treating Clinician Comments Source Abdominal pain Abdominal pain Problem Active [facility] Pyelonephritis Problem Active [facility] Fibrosis of lung Problem Active [facility] Allergies, Adverse Reactions, Alerts Allergy Name Allergy Type Status Severity Reaction(s) Onset Date Inacti ve Date Treating Clinician Comments Source Iodine Allergy to substance Active Mild RASH 2020-06-08 00:00:00 [facility] iodine DA Active [place] 2015-10-17 00:00:00 [facility] Social History Social Habit Start Date Stop Date Quantity Comments Source Sex Assigned At 1945 00:00:00 1945 00:00:00 Male [facility] Medications Ordered Medication Name Filled Medication Name Start Date Stop Da te Current Medication? Ordering Clinician Indication Dosage Frequency Signature (SIG) Comments Components Source Tramadol Hcl (Ultram) 50 Mg TABLET Tramadol Hcl (Ultram) 50 Mg TABLET 2019-04-22 01:24:00 Yes 50 Every 6 Ho urs as needed for Mild Pain (1-3) Or Fever>100.8 [facility] Cephalexin Monohydrate (Keflex) 500 Mg CAPSULE Cephale steffen Monohydrate (Keflex) 500 Mg CAPSULE 2019-04-22 01:24:00 2019-05-25 00:00:00 No 5 00 Every 6 Hours [facility] Acetaminophen Acetaminophen Yes 650 Ever y 6 Hours as needed for Pain [facility] Aspirin Aspirin Yes 81 Twice A Day [facility] Atorvastatin Calcium Atorvastatin Calcium Yes 20 Every Evening [facility] Benzonatate Benzonatate Yes 100 Three Ti mes A Day as needed for Cough [facility] Carvedilol (Coreg) 3.125 Mg TAB Carvedilol (Coreg) 3.125 Mg TAB Yes Twice A Day [facility] Finasteride Finasteride Yes 5 Daily [facility] Furosemide (Lasix) 40 Mg TABLET Furosemide (Lasix) 40 Mg TABLET Yes 40 Daily [facility] Glimepiride Glimepiride Yes .5 Daily [facility] Levalbuterol Tartrate (Xopenex Hfa) 15 Gm HFA.AER.AD L evalbuterol Tartrate (Xopenex Hfa) 15 Gm HFA.AER.AD Yes 15 Every 4 Hours as needed for Shortness Of Breath [facility] Loratadine (Claritin) 10 Mg TABLET Loratadine (Claritin) 10 Mg TABLET Yes Daily [facility] Nitroglycerin (Nitrostat) 0.4 Mg TAB.SUBL Nitroglyceri n (Nitrostat) 0.4 Mg TAB.SUBL Yes .4 for Chest Pain [facility] Potassium Chloride (Klor-Con 10) 10 Meq TABLET.ER Pota ssium Chloride (Klor-Con 10) 10 Meq TABLET.ER Yes 10 Daily [facility] Ranolazine (Ranexa) 500 Mg TABSR Ranolazine (Ranexa) 500 Mg TABSR Yes 1000 Twice A Day [facility] Benzonatate (Tessalon Perle) 100 Mg CAPSULE Benzonatat e (Tessalon Perle) 100 Mg CAPSULE 2020-06-10 00:00:00 No Every 6 Hours fo r Cough [facility] Losartan Potassium Losartan Potassium 2020-06-10 00:00:00 No 25 Daily [facility] Metformin Hcl (Fortamet) 500 Mg TAB.ER.24 Metformin Hc l (Fortamet) 500 Mg TAB.ER.24 2020-06-10 00:00:00 No 500 Twice A Day [facility] Doxycycline Hyclate Doxycycline Hyclate 2019-05-25 00:00:00 No 100 Twice A Day [facility] Levofloxacin (Levaquin) 250 Mg TABLET Levofloxacin (Levaquin) 25 0 Mg TABLET 2018-12-24 00:00:00 No 250 Daily [facility] Cefdinir (Omnicef) 300 Mg CAPSULE Cefdinir (Omnicef) 300 Mg CAPS ULE 2018-03-10 00:00:00 No 300 Every 12 Hours [facility] Glipizide (Glipizide Xl) 2.5 Mg TABCR Glipizide (Glipizide Xl) 2 .5 Mg TABCR 2018-03-08 00:00:00 No 2.5 Daily [facility] Sulfamethoxazole/Trimethoprim (Bactrim Ds Tablet) 1 Ea ch TABLET Sulfamethoxazole/Trimethoprim (Bactrim Ds Tablet) 1 Each TABLET 2018-03-08 00:00:00 No 1 Twice A Day [facility] Tamsulosin Hcl (Flomax*) 0.4 Mg CAP Tamsulosin Hcl (Flomax*) 0.4 Mg CAP 2018-03-08 00:00:00 No .4 Daily [facility] Fe Fumarate/Fa/Mv, Min Comb#15 (Hemocyte Plus Capsule) 1 Each CAPSULE Fe Fumarate/Fa/Mv, Min Comb#15 (Hemocyte Plus Capsule) 1 Each CAPSULE 2015-05-01 00:00:00 No 1 Daily [facility] Furosemide Furosemide 2015-05-01 00:00:00 No 40 Rt Daily [facility] Gabapentin Gabapentin 2015-05-01 00:00:00 No 100 Twi ce A Day [facility] Lisinopril (Prinavil / Zestril) 20 Mg TABLET Lisinopri l (Prinavil / Zestril) 20 Mg TABLET 2015-05-01 00:00:00 No 20 Daily [facility] Potassium Chloride (Klor-Con 10) 10 Meq TABLET.ER Pota ssium Chloride (Klor-Con 10) 10 Meq TABLET.ER 2015-01-20 00:00:00 No 10 Rt Daily [facility] Vital Signs Vital Name Observation Time Observation Value Comments Source Body Temperature 2020-06-10 08:58:00 97.6 [degF] [facility] BMI (Body Mass Index) 2020-06-08 19:15:00 28.1 kg/m2 [facility] Weight 2020-06-08 15:08:00 144 [lb_av] [facility] Procedures Procedure Date / Time Performed Performing Clinician [facility] e CT of abdomen and pelvis without contrast 2020-06-08 00:00:00 [facility] Plan of Care Planned Activity Planned Date Details Comments Source Instructions Abdominal Pain - Adult [facility] Instructions Pyelonephritis [facility] Encounters Start Date/Time End Date/Time Encounter Type Admission Type Attendi [facility] Facility Care Department Encounter ID Source 2020-06-08 17:23:00 2020-06-10 11:54:00 Discharged Inpatient (obs) 1 ELIOT NEAL [facility] [id number] [facility] 2019 13:27:00 2019-05-25 19:00:00 Discharged Inpatient 1 DORY LOPEZ [facility] [id number] [facility] 2019-04-21 21:56:00 2019-04-22 01:57:00 Departed Emergency Room 1 MACIE GRAYSON [facility] [id number] [facility] 2019-03-24 00:15:00 2019-03-24 02:45:00 Departed Emergency Room [facility] [id number] [facility] 2018-12-22 22:36:00 2018-12-24 12:44:00 Discharged Inpatient (obs) 1 DORY LOPEZ [facility] [id number] [facility] 2018-09-22 22:57:00 2018-09-23 01:36:00 Departed Emergency Room 1 STEPHANIE HANNAH [facility] [id number] [facility] 2018-03-08 12:31:00 2018-03-10 16:09:00 Discharged Inpatient 1 DORY LOPEZ [facility] [id number] [facility] Results Test Description Test Time Test Comments Results Result Comments Source WALLY Irvin/CXR 2020-07-16 15:48:[facility] 1945 Sex: [place] [address] Patient Name: KANWAL DAVIDSON MR #: [id number] : 1945 Age/Sex: 75/M Req #: [id number] Adm Physician: Ordered by: ELIOT NEAL MD Report #: [id number] Location: ER Room/Bed: Procedure: [id number] DX/RIBS UNILAT W/CXR Exam Date: 07/16/20 Exam Time: 1430 REPORT STATUS: Signed EXAMINATION: RIBS UNILAT W/CXR INDICATION: Right rib pain COMPARISON: Chest radiograph 06/08/2020 FINDINGS: LINES/TUBES:None LUNGS:The lungs are moderately inflated. Unchanged bilateral predominantly peripheral interstitial opacities consistent with chronic interstitial lung disease. No new focal consolidation. PLEURA:No pleural effusion or pneumothorax. MEDIASTINUM:The cardiomediastinal silhouette appears unchanged in size and shape. BONES/SOFT TISSUES:Minimally displaced right fifth lateral rib fracture. No additional fractures identified. ABDOMEN:No free air under the diaphragm. IMPRESSION: Minimally displaced right fifth lateral rib fracture. Unchanged findings of chronic interstitial lung disease. Signed by: Jelly Woodruff MD on 07/16/2020 3:55 PM Dictated By: JELLY WOODRUFF MD 54 Transcribed By: JENNIFER on 07/16/201554 COPY TO: ELIOT NEAL MD Capillary blood glucose measurement by glucometer (mas s/volume) 2020-06-10 07:48:00 Test Item Bedside Glucose (test code = 44134-5) 74 70-120 Meter ID: [id number] HoustonBl[facility] leukocytes automated count (number/volume)2020-06-09 04:07:00* Test Item Value Reference Range Interpretation Comments White Blood Count (test code = 6690-2) 5.42 4.8-10.8 [facility] erythrocytes automated count (number/volume)2020-06-09 04:07:00* Test Item Value Reference Range Interpretation Comments Red Blood Count (test code = 789-8) 3.63 4.3-5.7 [facility] hemoglobin measurement (moles/volume)2020-06-09 04:07:00* Test Item Value Reference Range Interpretation Comments Hemoglobin (test code = 31365-0) 10.9 14.0-18.0 [facility] Houston[facility] blood hematocrit (volume fraction)2020-06-09 04:07:00* Test Item Value Reference Range Interpretation Comments Hematocrit (test code = 4544-3) 34.5 38.2-49.6 [facility] HoustonAutomated erythrocyte mean corpuscular shlkpj7177-72-44 04:07:00* Test Item Value Reference Range Interpretation Comments Mean Corpuscular Volume (test code = 787-2) 95.0 81-99 [facility] Houston[facility] erythrocyte mean corpuscular hemoglobin (mass per erythrocyte)2020-06-09 04:07:00* Test Item Value Reference Range Interpretation Comments Mean Corpuscular Hemoglobin (test code = 785-6) 30.0 28-32 [facility]Aut[facility] eryth[facility] mean corpuscular hemoglobin concentration measurement (mass/volume)2020-06-09 04:07:00* Test Item Value Reference Range Interpretation Comments Mean Corpuscular Hemoglobin Concent (test code = 786-4) 31.6 31-35 [facility] HoustonRDW GzdKb-[id number] 04:07:00* Test Item Value Reference Range Interpretation Comments Red Cell Distribution Width (test code = 40413-5) 12.3 11.7 -14.4 [facility] HoustonAutom[facility] blood platelet count (count/volume)2020-06-09 04:07:00* Test Item Value Reference Range Interpretation Comments Platelet Count (test code = 777-3) 163 140-360 [facility] neutrophil count as percentage of total cuthbkanfd3265-99-04 04:07:00* Test Item Value Reference Range Interpretation Comments Neutrophils (%) (Auto) (test code = 40112-0) 56.3 38.7-80.0 [facility] HoustonAutomated blood lymphocyte count as percentage ot total bamgeaglsa8318-08-43 04:07:00* Test Item Value Reference Range Interpretation Comments Lymphocytes (%) (Auto) (test code = 736-9) 33.4 18.0-39.1 [facility] HoustonAutomated blood monocyte count as percentage of total brblthjjxi3563-29-61 04:07:00* Test Item Value Reference Range Interpretation Comments Monocytes (%) (Auto) (test code = 5905-5) 5.5 4.4-11.3 [facility] HoustonAutomated blood eosinophil count as percentage of total slgemrprrn2971-01-10 04:07:00* Test Item Value Reference Range Interpretation Comments Eosinophils (%) (Auto) (test code = 713-8) 3.7 0.0-6.0 [facility] HoustonAutomated blood basophil count as percentage of total rhsnufhhvn9178-33-56 04:07:00* Test Item Value Reference Range Interpretation Comments Basophils (%) (Auto) (test code = 706-2) 0.7 0.0-1.0 [facility] HoustonFluoroscopic procedure less than one hour qscyrseq9637-52-14 04:07:00* Test Item Value Reference Range Interpretation Comments IM GRANULOCYTES % (test code = IM GRANULOCYTES %) 0.4 0.0- 1.0 [facility] HoustonAutom[facility] blood neutrophil count 2020-06-09 04:07:00* Test Item Value Reference Range Interpretation Comments Neutrophils # (Auto) (test code = 751-8) 3.1 2.1-6.9 [facility] HoustonBlood lymphocytes count (number/volume) 2020-06-09 04:07:00* Test Item Value Reference Range Interpretation Comments Lymphocytes # (Auto) (test code = 11048-5) 1.8 1.0-3.2 [facility] monocytes automated count (number/volume)2020-06-09 04:07:00* Test Item Value Reference Range Interpretation Comments Monocytes # (Auto) (test code = 742-7) 0.3 0.2-0.8 [facility] HoustonAutom[facility] blood eosinophil count 2020-06-09 04:07:00* Test Item Value Reference Range Interpretation Comments Eosinophils # (Auto) (test code = 711-2) 0.2 0.0-0.4 [facility] HoustonAutom[facility] blood basophil count (count/volume)2020-06-09 04:07:00* Test Item Value Reference Range Interpretation Comments Basophils # (Auto) (test code = 704-7) 0.0 0.0-0.1 [facility] HoustonFluoroscopic procedure less than one hour qlzbfpyp3993-23-71 04:07:00* Test Item Value Reference Range Interpretation Comments Absolute Immature Granulocyte (auto (leandra t code = Absolute Immature Granulocyte (auto) 0.02 0-0.1 [facility] sodium measurement (moles/volume)2020-06-09 04:07:00* Test Item Value Reference Range Interpretation Comments Sodium Level (test code = 2951-2) 136 136-145 [facility] plasma potassium measurement (moles/volume)2020-06-09 04:07:00* Test Item Value Reference Range Interpretation Comments Potassium Level (test code = 2823-3) 3.2 3.5-5.1 [facility] or plasma chloride measurement (moles/volume)2020-06-09 04:07:00* Test Item Value Reference Range Interpretation Comments Chloride Level (test code = 2075-0) 89 98-107 [facility]rum or plasma carbon dioxide, total measurement (moles/volume)2020-06-09 04:07:00* Test Item Value Reference Range Interpretation Comments Carbon Dioxide Level (test code = 2028-9) 38 22-29 [facility] or plasma anion uui1138-78-13 04:07:00* Test Item Value Reference Range Interpretation Comments Anion Gap (test code = 61257-4) 12.2 8-16 [facility] or plasma urea nitrogen measurement (mass/volume)2020-06-09 04:07:00* Test Item Value Reference Range Interpretation Comments Blood Urea Nitrogen (test code = 3094-0) 11 7-26 [facility] or plasma creatinine measurement (mass/volume)2020-06-09 04:07:00* Test Item Value Reference Range Interpretation Comments Creatinine (test code = 2160-0) 0.69 0.72-1.25 [facility] or plasma urea nitrogen/creatinine mass jimga7998-81-87 04:07:00* Test Item Value Reference Range Interpretation Comments BUN/Creatinine Ratio (test code = 3097-3) 16 6-25 [facility] HoustonEstimated glomerular filtration rate (GFR) hnfexhavjcmvs8875-82-45 04:07:00* Test Item Value Reference Range Interpretation Comments Estimat Glomerular Filtration Rate (test code = 426497600) > 60 >60 Ranges were taken from the National Kidney Disease Education Program and the [place] [facility] Kidney Foundation literature.Reference ranges:60 or greater: Dsouvj70-34 ( for 3 consecutive months): Chronic kidney disease 15 or less: Kidney failureNexus Children's Hospital HoustonGlucose gnbaostrhcl7586-16-31 04:07:00* Test Item Value Reference Range Interpretation Comments Glucose Level (test code = OUS7910) 98 74-118 [facility] or plasma calcium measurement (mass/volume)2020-06-09 04:07:00* Test Item Value Reference Range Interpretation Comments Calcium Level (test code = 05447-0) 9.0 8.4-10.2 [facility] or plasma total bilirubin measurement (mass/volume)2020-06-09 04:07:00* Test Item Value Reference Range Interpretation Comments Total Bilirubin (test code = 1975-2) 0.3 0.2-1.2 [facility] HoustonFluoroscopic procedure less than one hour sycovlqm9706-28-95 04:07:00* Test Item Value Reference Range Interpretation Comments Aspartate Amino Transf (AST/SGOT) (test code = Aspartate Amino Transf (AST/SGOT)) 16 5-34 [facility]ererum or plasma alanine aminotransferase measurement (enzymatic activity/volume)2020-06-09 04:07:00* Test Item Value Reference Range Interpretation Comments Alanine Aminotransferase (ALT/SGPT) (test code = 1742-6) 13 0-55 [facility]ererum or plasma protein measurement (mass/volume)2020-06-09 04:07:00* Test Item Value Reference Range Interpretation Comments Total Protein (test code = 2885-2) 5.8 6.5-8.1 VERIFIED PREVIOUS RESULTSGuadalupe Regional Medical Centererum or plasma albumin measurement (mass/volume)2020-06-09 04:07:00* Test Item Value Reference Range Interpretation Comments Albumin (test code = 1751-7) 3.5 3.5-5.0 [facility] HoustonPlasma globulin measurement (mass/volume) 2020-06-09 04:07:00* Test Item Value Reference Range Interpretation Comments Globulin (test code = 56618-8) 2.3 2.3-3.5 [facility]rum or plasma albumin/globulin mass iogqw1873-91-61 04:07:00* Test Item Value Reference Range Interpretation Comments Albumin/Globulin Ratio (test code = 1759-0) 1.5 0.8-2.0 [facility]rum or plasma alkaline phosphatase measurement (enzymatic activity/volume)2020-06-09 04:07:00* Test Item Value Reference Range Interpretation Comments Alkaline Phosphatase (test code = 6768-6) 98 40-150 [facility]ererum or plasma creatine kinase measurement (enzymatic activity/volume)2020-06-09 04:07:00* Test Item Value Reference Range Interpretation Comments Creatine Kinase (test code = 2157-6) 22 30-200 [facility] Centererum or plasma creatine kinase MB measurement (mass/volume)2020-06-09 04:07:00* Test Item Value Reference Range Interpretation Comments Creatine Kinase MB (test code = 17441-0) 1.20 0-5.0 [facility] HoustonTroponin I measurement by highly sensitive enzyme dcjewmfsofd0464-10-03 04:07:00* Test Item Value Reference Range Interpretation Comments Troponin I (test code = 88896-8) 0.020 0-0.300 [facility] HoustonFluoroscopic procedure less than one hour edkccxyw6460-76-51 18:26:00* Test Item Value Reference Range Interpretation Comments Coronavirus (PCR) (test code = Coronavirus (PCR)) NOT DETECTED NOTD ETECTED SARS-CoV-2 PCRHologic Aptima SARS-CoV-2 assay is a nucleic amplification test in tended for the qualitative detection of RNA from SARS-CoV-2 from nasopharyngeal (FIRE DEPARTMENT BATTALION CHIEF) specimens. It is used under Emergency Use Authorization (EUA) by FDA.A posi tive result is indicative of the presence of SARS-CoV-2 RNA. Clinical correlatio n with patient history and other diagnostic information is necessary to determin e patient infection status.A negative (Not Detected) result does not preclude SA RS-CoV-2 infection. Clinical Correlation with patient history and other diagnost ic information should be used in patient management decisions.Invalid: Unable to generate a valid result on this specimen. Please submit a new specimen for repr at testing oc clinically indicated.Tesing performed by:[facility] Laboratory Services[address] [place] [address] [id number], Stephanie rice MD, PhDCHI [facility]'S HospitalBlood [id number] 16:22:00* Test Item Value Reference Range Interpretation Comments Blood Culture (test code = 84006960) NO GROWTH AFTER 24 HOURS [facility] HospitalCT ABDOMEN/PELVIS [id number] 16:12:00 [facility] [address] [place] [address] Patient Name: KANWAL DAVIDSON MR #: [id number] : 1945 Age/Sex: 75/M Req #: [id number] Adm Physician: Ordered by: ELIOT NEAL MD Repo rt #: [id number] Location: ER Room/Be d: Procedure: [id number] CT/CT ABDOMEN/P LAMAR SOUZA Exam Date: 06/08/20 Exam Time: 1530 REPORT STATUS: Signed EXAM: CT Abdomen and Pelvis WITHOUT contrast INDICATION: Midline abdominal pain. COMP MARTHA: CT abdomen/pelvis 2019. TECHNIQUE: Abdomen and pelvis were sca nned utilizing a multidetector helical scanner from the lung base to the pubic symphysis without administration of IV contrast. Absence of intravenous contr ast decreases sensitivity for detection of focal lesions and vascular patholog y. Coronal and sagittal reformations were obtained. IV CONTR AST: None. ORAL CONTRAST: None. RADIATION DOSE: Tota l DLP: 202 mGy*cm Estimated effective dose: (DLP x 0.015 x size f actor) mSv COMPLICATIONS: None FINDINGS: LOWER THORAX: Exte nsive bibasilar groundglass opacities and peripheral subpleural cystic changes in a honeycombing distribution. Extensive traction bronchiectasis. There is d ecreased nodularity in the posterior right middle lobe, likely infectious or i nflammatory. Multivessel coronary atherosclerosis. Status post CABG. HEPA TOBILIARY: No focal hepatic lesions. The gallbladder appears unremarkable. SPLEEN: No splenomegaly. PANCREAS: No focal masses or ductal dilatation. ADRENALS: No adrenal nodules. KIDNEYS/URETERS: No renal calculi or hydrone phrosis. Bilateral subcentimeter renal hypodensities likely cysts. PELVIC OR BARBER/BLADDER: Prostatomegaly to 6.1 cm with coarse internal calcifications and soft tissue component indenting the posterior bladder. PERITONEUM / RETROP ERITONEUM: No free air or fluid. LYMPH NODES: No lymphadenopathy. VESSELS: M oderate atherosclerotic calcifications of the abdominal aorta and branch vesse ls. GI TRACT: Distal colonic diverticulosis without evidence of diverticuli tis. No evidence of bowel obstruction or bowel wall thickening. The appendix i s not visualized. BONES AND SOFT TISSUES: Diffuse osteopenia. No acute os seous injury. Grade 1 anterolisthesis at L4-5. Degenerative changes of the vis ualized spine. No suspicious lytic or blastic lesions. Partially visualized st ernotomy wires. IMPRESSION: No acute noncontrast CT abdomen rounding the abdomen or pelvis. No evidence of nephrolithiasis. Similar appearance of prostatomegaly measuring 6.1 cm with coarse internal calcifications and soft tissue component indenting the posterior bladder. Diverticulosis without e vidence of diverticulitis. UIP pattern of interstitial lung disease of the lung bases with decreasing nodularity in the right middle lobe, likely infecti ous or inflammatory. Signed by: Dr. Melvina Elizondo MD on 06/08/2020 4:21 PM Dictated By: MELVINA ELIZONDO MD 20 COPY TO: ELIOT NEAL MD CHEST SINGLE (PORTABLE)2020-06-08 15:56:00 [place] [address] Patient Name: KANWAL DAVIDSON MR #: [id number] : 1945 Age/Sex: 75/M Req #: [id number] Adm Physician: Ordered by: ELIOT NEAL MD Report #: [id number] Location: ER Room/Bed: Procedure: [id number] DX/CHEST SINGLE (PORTABLE) Exam Date: 06/08/20 Exam Time: 1536 REPORT STATUS: Signed EXAMINATION: CHEST SINGLE (PORTABLE) INDICATION: ABD PAIN, H/O IDIOPATH PULM FIBROSI S COMPARISON: Chest radiograph 12-23-[address] chest 06/07/2020. CT abdo men/pelvis 2019. FINDINGS: TUBES and LINES: Median sternotomy wires and mediastinal clips are in place. LUNGS: Lungs are not well infla dafne. Stable findings of pulmonary fibrosis with UIP appearance based on prior CT chest.. No new consolidation. PLEURA: No pleural effusion or pneumoth orax. HEART AND MEDIASTINUM: Cardiac size is mildly enlarged. Tortuous tho racic aorta. Status post CABG. BONES AND SOFT TISSUES: No acute osseous abnormality. Status post median sternotomy. UPPER ABDOMEN: No free air un leroy the diaphragm. IMPRESSION: Unchanged bilateral diffuse opacities , consistent with pulmonary fibrosis. No specific evidence of superimposed pne umonia. Signed by: Dr. Melvina Elizondo MD on 06/08/2020 4:00 PM Dictated By: MELVINA ELIZONDO MD 1600 Tra nscribed By: JENNIFER on 06/08/20 1600 COPY TO: ELIOT NEAL MD Urine color thtimovmoacee7119-16-39 15:33:00* Test Item Value Reference Range Interpretation Comments Urine Color (test code = 5778-6) YELLOW YELLOW [facility] qsraufj7796-69-54 15:33:00* Test Item Value Reference Range Interpretation Comments Urine Clarity (test code = 20834-4) HAZY CLEAR [facility] Urine by Test strip 2020-06-08 15:33:00* Test Item Value Reference Range Interpretation Comments Urine Specific [place] (test code = 5811-5) 1.020 1.010-1.02 5 [facility] pH measurement by automated test dvwoz9183-27-34 15:33:00* Test Item Value Reference Range Interpretation Comments Urine pH (test code = 44430-9) 6 5-7 [facility] HoustonU[facility] leukocyte esterase detection by ucfvlgau6955-04-90 15:33:00* Test Item Value Reference Range Interpretation Comments Urine Leukocyte Esterase (test code = 5799-2) MODERATE NEGATIVE [facility] HoustonUrine nitrite poenxchuj9288-34-94 15:33:00* Test Item Value Reference Range Interpretation Comments Urine Nitrite (test code = 34296-1) NEGATIVE NEGATIVE [facility] HoustonUrine protein measurement by test strip (mass/volume)2020-06-08 15:33:00* Test Item Value Reference Range Interpretation Comments Urine Protein (test code = 5804-0) NEGATIVE NEGATIVE [facility] HoustonU[facility] glucose alaakjzlj2480-60-77 15:33:00* Test Item Value Reference Range Interpretation Comments Urine Glucose (UA) (test code = 2349-9) NEGATIVE NEGATIVE [facility] HoustonU[facility] ketones detection by automated test fzxej4899-93-42 15:33:00* Test Item Value Reference Range Interpretation Comments Urine Ketones (test code = 00635-4) NEGATIVE NEGATIVE [facility] HoustonUrine urobilinogen measurement by test strip (mass/volume)2020-06-08 15:33:00* Test Item Value Reference Range Interpretation Comments Urine Urobilinogen (test code = 93149-2) 0.2 0.2-1 [facility] HoustonU[facility] total bilirubin measurement (mass/volume)2020-06-08 15:33:00* Test Item Value Reference Range Interpretation Comments Urine Bilirubin (test code = 1978-6) NEGATIVE NEGATIVE [facility] HoustonUrine erythrocytes pxecpohyq2713-45-03 15:33:00* Test Item Value Reference Range Interpretation Comments Urine Blood (test code = 69716-7) TRACE NEGATIVE [facility] HoustonAutomated urine sediment leukocyte count by microscopy (number/high power field)2020-06-08 15:33:00* Test Item Value Reference Range Interpretation Comments Urine WBC (test code = 5821-4) 21-50 0-5 [facility] HoustonErythrocytes detection in urine sediment by light wtcpdzsnqv5353-26-48 15:33:00* Test Item Value Reference Range Interpretation Comments Urine RBC (test code = 94450-0) 6-10 0-5 [facility] HoustonBacteria detection in urine sediment by light okzbommehx3767-40-61 15:33:00* Test Item Value Reference Range Interpretation Comments Urine Bacteria (test code = 57287-7) MODERATE NONE [facility] HoustonEpithelial cells detection in urine sediment by light yacwknsfuu9207-55-10 15:33:00* Test Item Value Reference Range Interpretation Comments Urine Epithelial Cells (test code = 96323-4) FEW NONE [facility] HoustonBacterial urine lkjvxee5812-76-96 15:33:00* Test Item Value Reference Range Interpretation Comments Urine Culture (test code = 630-4) KLEBSIELLA PNEUMONIAE [facility] HoustonProthrombin time (PT) in platelet poor plasma by coagulation rvity7788-59-13 15:15:00* Test Item Value Reference Range Interpretation Comments Prothrombin Time (test code = 5902-2) 13.1 11.9-14.5 [facility] HoustonINR in Platelet poor plasma by Coagulation znozk0273-29-23 15:15:00* Test Item Value Reference Range Interpretation Comments Prothromb Time International Ratio (test code = 6301-6) 0.94 Oral Anticoagulant Therapy INR Values:1. Low Intensity Therapy 1.5 - 2.02 . Moderate Intensity Therapy 2.0 - 3.03. High Intensity Therapy(1) 2.5 - 3. 54. High Intensity Therapy(2) 3.0 - 4.05. Panic Value INR > 5.0 [facility] HoustonActivated partial thromboplastin time (aPTT) in platelet poor plasma by coagulation emwgu3468-93-10 15:15:00* Test Item Value Reference Range Interpretation Comments Activated Partial Thromboplast Time (test code = 50858-7) 27.6 23.8-35.5 [facility] HoustonBNP Ykr-rGao2250-75-27 15:15:00* Test Item Value Reference Range Interpretation Comments B-Type Natriuretic Peptide (test code = 95874-9) 116.2 0-100 [facility] Centererum or plasma amylase measurement (enzymatic activity/volume)2020-06-08 15:15:00* Test Item Value Reference Range Interpretation Comments Amylase Level (test code = 1798-8) 78 25-125 [facility] Centererum or plasma lipase measurement (enzymatic activity/volume)2020-06-08 15:15:00* Test Item Value Reference Range Interpretation Comments Lipase (test code = 3040-3) 21 8-78 [facility] CT T-SPINE W/O ZDWJIBJC0392-22-02 22:32:00 Name: KANWAL DAVIDSON [facility] : 1945 Age/S: 74 / M [address] [facility] Unit #: [id number] Loc: [place] [address] Phys: Edgardo Garcia MD Acct: [id number] Dis Date: Status: REG ER PHONE #: [phone] Exam Date: 04/20/2020 2210 FAX #: [phone] Reason: Pain EXAMS: CPT CODE: [id number] CT T-SPINE W/O CONTRAST 24548 HISTORY: Pain Location: C3 TECHNIQUE: Axial tomograms of the thoracic spine were obtained. Sagittal coronal reformatted images are provided. One or more of the following dose reduction techniques were used: Automated exposure control, adjustment of the mA and/or kV according to patient size, and/or utilization of iterative reconstruction technique. FINDINGS: Thoracic kyphosis is demonstrated. There is height loss involving the T5 vertebral body with proximally 10% anterior wedging which is age-indeterminate in nature. No other acute fracture demonstrated. Severe interstitial fibrotic change and honeycombing is noted within the visualized lungs. Aortic and coronary calcifications are present. IMPRESSION: 1. Advanced multilevel degenerative changes of the thoracic spine with age-indeterminate superior endplate fracture involving T5. 2. No other acute fracture demonstrated. No other acute abnormalities. at 2232 Reported and signed by: Inocencio Johnson MD CC: Edgardo Garcia MD; Masoud Newton MD Technologist:DORY GRIMALDO CTDI: DLP: Trnscb Date/Time: 04/20/2020 (2231) [email or web address] Orig Print D/T: S: 04/20/2020 (2235) PAGE 1 Signed Report - XR CHEST 2 [id number] 11:33:00 FAX: Masoud Poole MD [phone] [place]: O St: REG FAX: José Miguel Canchola MD [phone] Name: KANWAL DAVIDSON [facility] : 1945 Age/S: 74/M [address] [facility] Unit #: [id number] Loc: [place] [address] Phys: José Miguel Santo MD Acct: [id number] Dis Date: Status: REG CLI PHONE #: [phone] Exam Date: 12/12/2019 1120 FAX #: [phone] Reason: INTERSTITIAL LUNG DISEASE EXAMS: CPT CODE: [id number] XR CHEST 2 V 27062 HISTORY: Interstitial lung disease. COMPARISON: Chest x-ray from October 17, 2015. Location: [facility]. AP and lateral view of the chest: Scarring and fibrosis with basal honeycombing is unchanged. No acute infiltrates, effusion or congestion. Cardiac silhouette is at the upper limits of normal. IMPRESSION: No acute infiltrates, effusion or congestion. 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 Correlate with CT scan as clinica lly indicated. at 1133 Reported and signed by: Justus Sahni M.D. CC: Masoud Newton MD; José Miguel Santo MD Technologist: DOUG OBRIEN) Trn scrd Date/Time/By: 12/12/2019 (4353) : By: [email or web address] Orig Print D/T: S : 12/12/2019 (3203) PAGE 1 Signed Report Bedside Lusmhpk7490-19-75 16:00:00* Test Item Value Reference Range Interpretation Comments Bedside Glucose (test code = 29963-7) 280 70-120 H Meter ID: [id number] [facility] [id number] 14:07:00 [place] [address] Patient Name: KANWAL DAVIDSON MR #: [id number] : 1945 Age/Sex: 74/M Req #: [id number] Adm Physician: DORY LOPEZ MD Ordered by: JOSÉ MIGUEL SANTO MD Report #: [id number] Location: MED/SURG2 Room/Bed: [facility] Procedure: [id number] CT/CT CHEST WO Exam Date: 05/24/19 Exam Time: 1250 REPORT STATUS: Signed EXAM: CT Chest WI THOUT intravenous contrast 05/24/2019 11:52 AM INDICATION: Shortness of breath COMPARISON: Chest CT of 12/23/2018, CT abdomen pelvis of 2019 TECHNIQUE : Chest was scanned utilizing a multidetector helical scanner from the lung ap ex through the level of the adrenal glands without administration of IV contra st. Coronal and sagittal reformations were obtained. Routine protocol was pe rformed. IV CONTRAST: None RADIATION DOSE: Total DLP: 432.0 mGy*cm. Dose modulation, iterative reconstruction, and/or weight based adjustment of the mA /kV was utilized to reduce the radiation dose to as low as reasonably achievab le. COMPLICATIONS: None FINDINGS: LINES/ TUBES: None. LUNGS AN D AIRWAYS: The central airways are patent. No focal consolidation. Again seen are findings of bilateral pulmonary fibrosis in a UIP pattern with peripheral subpleural cystic changes and a honeycombing pattern, extensive traction bron chiectasis, and lower lobe dependent groundglass opacities. These findings are slightly increased compared to the prior chest CT of 12/23/2018, particularly at the anterior right upper lobe and lingula. More focal nodularity at the pos terior right middle lobe appears unchanged from the abdomen and pelvis CT of but is new compared to the chest CT of 12/23/2018 and may represent a more acute infectious or inflammatory process. PLEURA: No pleural effusion. No pneumothorax. HEART AND MEDIASTINUM: Unremarkable thyroid gland. No sup raclavicular, axillary, or mediastinal lymphadenopathy. Atherosclerotic calcif ications of the aorta and coronary arteries. Multichamber cardiomegaly. No per icardial effusion. Patulous distal esophagus. UPPER ABDOMEN: Limited no ncontrast enhanced views of the upper abdomen demonstrate no focal abnormality of the partially visualized liver, spleen, gallbladder, pancreas, or adrenals . The kidneys are not visualized. BONES: Diffuse osteopenia. Status post me ton sternotomy. No acute osseous injury. Degenerative changes of the visualiz ed spine. No suspicious lytic or blastic lesions. SOFT TISSUES: Unremarka ble. 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 More focal nodularity at t he posterior right middle lobe may represent a more acute infectious/inflammat ory process. Chest CT is recommended in 12 months to assess for stability. Atherosclerotic arterial calcifications, including of the coronary arteries. Multichamber cardiomegaly. Signed by: Jelly Woodruff MD on 05/24/2019 2:17 PM Dictated By: JELLY WOODRUFF MD 16 Transcribed By: JENNIFER on 05/24/191416 COPY TO: JOSÉ MIGUEL SANTO MD Sodium Yayuo2614-30-80 05:22:00* Test Item Value Reference Range Interpretation Comments Sodium Level (test code = 2951-2) 137 136-145 [facility] HoustonPotassium Bjuse1486-69-51 05:22:00* Test Item Value Reference Range Interpretation Comments Potassium Level (test code = 2823-3) 3.7 3.5-5.1 [facility] HoustonChloride Sqepm6112-96-55 05:22:00* Test Item Value Reference Range Interpretation Comments Chloride Level (test code = 2075-0) 101 98-107 [facility] HoustonCarbon Dioxide Wtikp4510-39-72 05:22:00* Test Item Value Reference Range Interpretation Comments Carbon Dioxide Level (test code = 2028-9) 26 22-29 [facility] HoustonAnion Nlc1497-94-76 05:22:00* Test Item Value Reference Range Interpretation Comments Anion Gap (test code = 82034-2) 13.7 8-16 [facility] HoustonBlood Urea Spqdrebl3260-66-75 05:22:00* Test Item Value Reference Range Interpretation Comments Blood Urea Nitrogen (test code = 3094-0) 10 7-26 [facility] HoustonCreatinine2019-09-12 05:22:00* Test Item Value Reference Range Interpretation Comments Creatinine (test code = 2160-0) 0.69 0.72-1.25 L [facility] HoustonBUN/Creatinine Fonqz3908-57-12 05:22:00* Test Item Value Reference Range Interpretation Comments BUN/Creatinine Ratio (test code = 3097-3) 14 6-25 [facility] HoustonEstimat Glomerular Filtration Rate 2019-05-24 05:22:00* Test Item Value Reference Range Interpretation Comments Estimat Glomerular Filtration Rate (test code = 792496279) > 60 >60 Ranges were taken from the National Kidney Disease Education Program and the [employer] literature.Reference ranges:60 or greater: Pkxztm08-97 ( for 3 consecutive months): Chronic kidney disease 15 or less: Kidney failureNexus Children's Hospital HoustonGlucose Dcuhd6124-31-73 05:22:00* Test Item Value Reference Range Interpretation Comments Glucose Level (test code = SOG7438) 171 74-118 H [facility] HoustonCalcium Enect3256-19-40 05:22:00* Test Item Value Reference Range Interpretation Comments Calcium Level (test code = 42557-7) 9.2 8.4-10.2 [facility] HoustonWhite Blood Oxysi1002-20-18 05:06:00* Test Item Value Reference Range Interpretation Comments White Blood Count (test code = 6690-2) 10.50 4.8-10.8 [facility] HoustonRed Blood Dajwa1043-43-09 05:06:00* Test Item Value Reference Range Interpretation Comments Red Blood Count (test code = 789-8) 4.16 4.3-5.7 L [facility] HoustonHemoglobin2019-09-12 05:06:00* Test Item Value Reference Range Interpretation Comments Hemoglobin (test code = 33253-7) 12.0 14.0-18.0 L [facility] HoustonHematocrit2019-09-12 05:06:00* Test Item Value Reference Range Interpretation Comments Hematocrit (test code = 4544-3) 36.6 38.2-49.6 L [facility] HoustonMean Corpuscular Jhjvet4013-20-78 05:06:00* Test Item Value Reference Range Interpretation Comments Mean Corpuscular Volume (test code = 787-2) 88.0 81-99 [facility] HoustonMean Corpuscular Rqyeqbafjt8538-77-31 05:06:00* Test Item Value Reference Range Interpretation Comments Mean Corpuscular Hemoglobin (test code = 785-6) 28.8 28-32 [facility] HoustonMean Corpuscular Hemoglobin Concent 2019-05-24 05:06:00* Test Item Value Reference Range Interpretation Comments Mean Corpuscular Hemoglobin Concent (test code = 786-4) 32.8 31-35 [facility] HoustonRed Cell Distribution Fqbdk4657-23-41 05:06:00* Test Item Value Reference Range Interpretation Comments Red Cell Distribution Width (test code = 95140-3) 15.0 11.7 -14.4 H [facility] HoustonPlatelet Ameyi6472-20-73 05:06:00* Test Item Value Reference Range Interpretation Comments Platelet Count (test code = 777-3) 196 140-360 [facility] HoustonNeutrophils (%) (Auto)2019-05-24 05:06:00 * Test Item Value Reference Range Interpretation Comments Neutrophils (%) (Auto) (test code = 43205-9) 88.3 38.7-80.0 H [facility] HoustonLymphocytes (%) (Auto)2019-05-24 05:06:00 * Test Item Value Reference Range Interpretation Comments Lymphocytes (%) (Auto) (test code = 736-9) 9.1 18.0-39.1 L [facility] HoustonMonocytes (%) (Auto)2019-05-24 05:06:00* Test Item Value Reference Range Interpretation Comments Monocytes (%) (Auto) (test code = 5905-5) 1.8 4.4-11.3 L [facility] HoustonEosinophils (%) (Auto)2019-05-24 05:06:00 * Test Item Value Reference Range Interpretation Comments Eosinophils (%) (Auto) (test code = 713-8) 0.0 0.0-6.0 [facility] HoustonBasophils (%) (Auto)2019-05-24 05:06:00* Test Item Value Reference Range Interpretation Comments Basophils (%) (Auto) (test code = 706-2) 0.2 0.0-1.0 [facility] HoustonIM GRANULOCYTES %2019-05-24 05:06:00* Test Item Value Reference Range Interpretation Comments IM GRANULOCYTES % (test code = IM GRANULOCYTES %) 0.6 0.0- 1.0 [facility] HoustonNeutrophils # (Auto)2019-05-24 05:06:00* Test Item Value Reference Range Interpretation Comments Neutrophils # (Auto) (test code = 751-8) 9.3 2.1-6.9 H [facility] HoustonLymphocytes # (Auto)2019-05-24 05:06:00* Test Item Value Reference Range Interpretation Comments Lymphocytes # (Auto) (test code = 91164-8) 1.0 1.0-3.2 [facility] HoustonMonocytes # (Auto)2019-05-24 05:06:00* Test Item Value Reference Range Interpretation Comments Monocytes # (Auto) (test code = 742-7) 0.2 0.2-0.8 [facility] HoustonEosinophils # (Auto)2019-05-24 05:06:00* Test Item Value Reference Range Interpretation Comments Eosinophils # (Auto) (test code = 711-2) 0.0 0.0-0.4 [facility] HoustonBasophils # (Auto)2019-05-24 05:06:00* Test Item Value Reference Range Interpretation Comments Basophils # (Auto) (test code = 704-7) 0.0 0.0-0.1 [facility] HoustonAbsolute Immature Granulocyte (auto 2019-05-24 05:06:00* Test Item Value Reference Range Interpretation Comments Absolute Immature Granulocyte (auto (leandra t code = Absolute Immature Granulocyte (auto) 0.06 0-0.1 [facility] HoustonB-Type Natriuretic Nawhztm6915-50-88 12:21:00* Test Item Value Reference Range Interpretation Comments B-Type Natriuretic Peptide (test code = 74065-1) 73.3 0-100 [facility] HoustonCreatine Kinase CL9667-08-75 12:10:00* Test Item Value Reference Range Interpretation Comments Creatine Kinase MB (test code = 76834-3) 2.00 0-5.0 [facility] HoustonTroponin G3565-99-64 12:10:00* Test Item Value Reference Range Interpretation Comments Troponin I (test code = BRE9963) 0.017 0-0.300 [facility] HoustonUrine MJI7216-83-87 12:01:00* Test Item Value Reference Range Interpretation Comments Urine WBC (test code = 5821-4) 11-20 0-5 H [facility] HoustonUrine VCZ6626-52-00 12:01:00* Test Item Value Reference Range Interpretation Comments Urine RBC (test code = 96698-9) 6-10 0-5 H [facility] HoustonUrine Yawflavf6243-11-00 12:01:00* Test Item Value Reference Range Interpretation Comments Urine Bacteria (test code = 54764-8) MODERATE NONE H [facility] HoustonUrine Epithelial Lfvkq3609-81-87 12:01:00 * Test Item Value Reference Range Interpretation Comments Urine Epithelial Cells (test code = 83588-6) FEW NONE [facility] HoustonUrine Gxbmd1959-74-36 11:56:00* Test Item Value Reference Range Interpretation Comments Urine Color (test code = 5778-6) YELLOW YELLOW [facility] HoustonUrine Sqcfzik1135-22-52 11:56:00* Test Item Value Reference Range Interpretation Comments Urine Clarity (test code = 56361-9) SL CLOUDY CLEAR H [facility] HoustonUrine Specific Bzqrabc1015-48-30 11:56:00 * Test Item Value Reference Range Interpretation Comments Urine Specific [place] (test code = 5811-5) 1.020 1.010-1.02 5 [facility] HoustonUrine aZ3354-34-37 11:56:00* Test Item Value Reference Range Interpretation Comments Urine pH (test code = 83365-3) 6 5-7 [facility] HoustonUrine Leukocyte Hyxkummz0604-63-27 11:56:00* Test Item Value Reference Range Interpretation Comments Urine Leukocyte Esterase (test code = 72355-8) TRACE NEGATIV E H [facility] HoustonUrine Gqkaggv2475-11-02 11:56:00* Test Item Value Reference Range Interpretation Comments Urine Nitrite (test code = 81037-4) NEGATIVE NEGATIVE [facility] HoustonUrine Deebmbs5389-63-10 11:56:00* Test Item Value Reference Range Interpretation Comments Urine Protein (test code = 69971-8) TRACE NEGATIVE H [facility] HoustonUrine Glucose (UA)2019 11:56:00* Test Item Value Reference Range Interpretation Comments Urine Glucose (UA) (test code = 16129-9) NEGATIVE NEGATIVE [facility] HoustonUrine Aogelxm4481-88-50 11:56:00* Test Item Value Reference Range Interpretation Comments Urine Ketones (test code = 08075-6) NEGATIVE NEGATIVE [facility] HoustonUrine Trcpycirdavt0687-97-56 11:56:00* Test Item Value Reference Range Interpretation Comments Urine Urobilinogen (test code = 38258-5) 2 0.2-1 [facility] HoustonUrine Txbnodpve1079-18-74 11:56:00* Test Item Value Reference Range Interpretation Comments Urine Bilirubin (test code = 1977-8) NEGATIVE NEGATIVE [facility] HoustonUrine Uvbit2502-51-13 11:56:00* Test Item Value Reference Range Interpretation Comments Urine Blood (test code = 24463-7) NEGATIVE NEGATIVE [facility] HoustonTotal Pnnhhusbt9677-29-14 11:55:00* Test Item Value Reference Range Interpretation Comments Total Bilirubin (test code = 1975-2) 0.9 0.2-1.2 [facility] HoustonAspartate Amino Transf (AST/SGOT) 2019 11:55:00* Test Item Value Reference Range Interpretation Comments Aspartate Amino Transf (AST/SGOT) (test code = Aspartate Amino Transf (AST/SGOT)) 15 5-34 [facility] HoustonAlanine Aminotransferase (ALT/SGPT) 2019 11:55:00* Test Item Value Reference Range Interpretation Comments Alanine Aminotransferase (ALT/SGPT) (test code = 1742-6) 16 0-55 [facility] HoustonTotal Iofvrma3390-47-36 11:55:00* Test Item Value Reference Range Interpretation Comments Total Protein (test code = 2885-2) 6.9 6.5-8.1 [facility] HoustonAlbumin2019-09-11 11:55:00* Test Item Value Reference Range Interpretation Comments Albumin (test code = 1751-7) 3.2 3.5-5.0 L [facility] HoustonGlobulin2019-09-11 11:55:00* Test Item Value Reference Range Interpretation Comments Globulin (test code = 26842-5) 3.7 2.3-3.5 H [facility] HoustonAlbumin/Globulin Ofulk6267-06-62 11:55:00 * Test Item Value Reference Range Interpretation Comments Albumin/Globulin Ratio (test code = 1759-0) 0.9 0.8-2.0 [facility] HoustonAlkaline Xuczvgjavvr3754-87-62 11:55:00* Test Item Value Reference Range Interpretation Comments Alkaline Phosphatase (test code = 6768-6) 86 40-150 [facility] HoustonCreatine Yvjzxv0485-25-62 11:55:00* Test Item Value Reference Range Interpretation Comments Creatine Kinase (test code = 2157-6) 42 30-200 [facility] HoustonAmylase Wqrqv9895-48-47 11:55:00* Test Item Value Reference Range Interpretation Comments Amylase Level (test code = 1798-8) 58 25-125 [facility] HoustonLipase2019-09-11 11:55:00* Test Item Value Reference Range Interpretation Comments Lipase (test code = 3040-3) 17 8-78 [facility] HoustonCT ABDOMEN/PELVIS NB3409-19-67 11:29:00 [facility] [address] [place] [address] Patient Name: KANWAL DAVIDSON MR #: [id number] : 6 Age/Sex: 74/M Req #: [id number] [facility] Physician: Ordered by: DILMA WATKINS MD Report #: [id number] Location: ER Room/Bed: Procedure: CT /CT ABDOMEN/PELVIS WO Exam Date: 05/23/19 Exam Time: 1030 REPORT STATUS: Signed EXAM : CT Abdomen and Pelvis WITHOUT intravenous contrast INDICATION: Abdomina l pain COMPARISON: Chest CT of 12/23/2018 TECHNIQUE: Abdomen and pelvis were scanned utilizing a multidetector helical scanner from the lung base to the pubic symphysis without administration of IV contrast. Coronal and sagitta l reformations were obtained. IV CONTRAST: None ORAL CONTRAST: Wate r COMPLICATIONS: None RADIATION DOSE: Total DLP: 388.4 mGy*cm Dose modulation, iterative reconstruction, and/or weight based adjus tment of the mA/kV was utilized to reduce the radiation dose to as low as reas onably achievable. FINDINGS: LOWER THORAX: Extensive bibasilar groundg lass opacities and peripheral subpleural cystic changes in a honeycombing dist ribution. Extensive traction bronchiectasis. Scattered more focal nodularity a t the posterior right middle lobe is new from the chest CT of 12/23/2018. Ather osclerotic coronary artery calcifications. HEPATOBILIARY: No focal hepati c lesions. The gallbladder appears unremarkable. SPLEEN: No splenomegaly. PANCREAS: No focal masses or ductal dilatation. ADRENALS: No adrenal n odules. KIDNEYS/URETERS: No renal calculi or hydronephrosis. Bilateral subcent imeter renal hypodensities likely cysts. PELVIC ORGANS/BLADDER: Prostatomega ly to 6.1 cm with coarse internal calcifications and soft tissue component ind enting the posterior bladder. PERITONEUM / RETROPERITONEUM: No free air or fluid. LYMPH NODES: No lymphadenopathy. VESSELS: Diffuse atherosclerotic tyler cifications of the nonaneurysmal abdominal aorta and major branches. GI T RACT: Extensive descending and sigmoid colon diverticulosis. No CT evidence of diverticulitis. No abnormal bowel wall thickening. No bowel obstruction. B ONES AND SOFT TISSUES: Diffuse osteopenia. No acute osseous injury. Grade 1 an terolisthesis at L4-5. Degenerative changes of the visualized spine. No suspic ious lytic or blastic lesions. Partially visualized sternotomy wires. IMPRE SSION: No renal calculi or hydronephrosis. Prostatomegaly to 6.1 cm with coarse internal calcifications and soft tissue component indenting the residence manager ior bladder. Diverticulosis with no CT evidence of diverticulitis. Sev ere interstitial lung disease in a UIP pattern. More focal nodularity at the p osterior right middle lobe is new from the chest CT of 12/23/2018 and likely re presents a more acute infectious/inflammatory process. Follow-up chest CT is r ecommended in 12 months to assess for stability. Signed by: Jelly Woodruff MD on 2019 11:37 AM Dictated By: JELLY WOODRUFF MD 113 Transcribed By: JENNIFER on 05/23/19 113 COPY TO: DILMA WATKINS MD SP LUMBAR, COMPLETE MIN [id number] 00:46:00 [place] [address] Patient Name: KANWAL DAVIDSON MR #: [id number] : 1945 Age/Sex: 73/M Req #: [id number] Adm Physician: Ordered by: MACIE GRAYSON MD Report #: [id number] Location: ER Room/Bed: Procedure: [id number] DX /SP LUMBAR, COMPLETE MIN 4VW Exam Date: 04/21/19 Bhanu prater Time: 4 REPORT STATUS: Signed Lumbar Spine Radiographs: 5 views HISTORY: Pain COMPARISON: None available. DISCUSSION: There are 6 non-rib bearing lumbar vertebral b odies. Mild grade 1 anterolisthesis of L4 in relation to L5. Multilevel degene rative disc disease and spondylosis of the imaged thoracolumbar spine. Slight retrolisthesis of L2 in relation to L3. Bilateral facet arthropathy at L4-L5 and L5-S1. Atherosclerotic calcifications of the abdominal aorta. IM PRESSION: Mild grade 1 anterolisthesis of L4 in relation to L5 Signed by: Dr. Yesy Swanson M.D. on 04/22/2019 12:48 AM Dictated By: JAYESH SWANSON MD, MD 48 Transcribed By: JENNIFER on 04/22/19 0048 COPY TO: MACIE GRAYSON MD Urine [id number] 22:58:00* Test Item Value Reference Range Interpretation Comments Urine WBC (test code = 5821-4) 11-20 0-5 [facility] [id number] 22:58:00* Test Item Value Reference Range Interpretation Comments Urine RBC (test code = 48332-3) NONE 0-5 [facility] Cftcdjpc3092-92-50 22:58:00* Test Item Value Reference Range Interpretation Comments Urine Bacteria (test code = 39813-5) MODERATE NONE H [facility] Epithelial Jcphj9221-18-31 22:58:00 * Test Item Value Reference Range Interpretation Comments Urine Epithelial Cells (test code = 33256-0) MODERATE NONE [facility] Jspor1134-78-99 22:57:00* Test Item Value Reference Range Interpretation Comments Urine Color (test code = 5778-6) YELLOW YELLOW [facility] Wlfkpmr4404-07-04 22:57:00* Test Item Value Reference Range Interpretation Comments Urine Clarity (test code = 72242-3) CLEAR CLEAR [facility] Specific Eppxfpl2983-33-96 22:57:00 * Test Item Value Reference Range Interpretation Comments Urine Specific [place] (test code = 5811-5) 1.020 1.010-1.02 5 [facility] [id number] 22:57:00* Test Item Value Reference Range Interpretation Comments Urine pH (test code = 27996-9) 5.5 5-7 [facility] Leukocyte Pjzhpcwg8273-00-07 22:57:00* Test Item Value Reference Range Interpretation Comments Urine Leukocyte Esterase (test code = 32237-7) SMALL NEGATIV E [facility] Jmdcjnc4696-07-51 22:57:00* Test Item Value Reference Range Interpretation Comments Urine Nitrite (test code = 57799-9) NEGATIVE NEGATIVE [facility] Agzpmje2514-09-80 22:57:00* Test Item Value Reference Range Interpretation Comments Urine Protein (test code = 60845-6) NEGATIVE NEGATIVE [facility] Glucose (UA)2019-04-21 22:57:00* Test Item Value Reference Range Interpretation Comments Urine Glucose (UA) (test code = 15959-5) NEGATIVE NEGATIVE [facility] Jwgfmca7143-67-28 22:57:00* Test Item Value Reference Range Interpretation Comments Urine Ketones (test code = 83421-1) NEGATIVE NEGATIVE [facility] Tawddoeclucm1543-24-81 22:57:00* Test Item Value Reference Range Interpretation Comments Urine Urobilinogen (test code = 16690-1) 0.2 0.2-1 [facility] Zrnuskpei0522-35-50 22:57:00* Test Item Value Reference Range Interpretation Comments Urine Bilirubin (test code = 1977-8) NEGATIVE NEGATIVE [facility] Dngus2279-32-60 22:57:00* Test Item Value Reference Range Interpretation Comments Urine Blood (test code = 24055-7) NEGATIVE NEGATIVE [facility] MMS5519-79-80 01:55:00* Test Item Value Reference Range Interpretation Comments Urine WBC (test code = 5821-4) 0-5 0-5 [facility] QVI6094-70-65 01:55:00* Test Item Value Reference Range Interpretation Comments Urine RBC (test code = 62375-4) NONE 0-5 [facility] Jturdqoj7795-35-03 01:55:00* Test Item Value Reference Range Interpretation Comments Urine Bacteria (test code = 30724-3) FEW NONE [facility] Epithelial Rpiez6042-55-82 01:55:00 * Test Item Value Reference Range Interpretation Comments Urine Epithelial Cells (test code = 54391-7) FEW NONE [facility] Hjhhy5472-47-14 01:35:00* Test Item Value Reference Range Interpretation Comments Urine Color (test code = 5778-6) YELLOW YELLOW [facility] Hauqhgn1144-61-89 01:35:00* Test Item Value Reference Range Interpretation Comments Urine Clarity (test code = 06924-8) CLEAR CLEAR [facility] Specific Crbdttl6049-87-92 01:35:00 * Test Item Value Reference Range Interpretation Comments Urine Specific [place] (test code = 5811-5) <=1.005 1.010-1.02 5 [facility] zS0525-11-20 01:35:00* Test Item Value Reference Range Interpretation Comments Urine pH (test code = 14552-3) 6 5-7 [facility] Leukocyte Ghlnugaz4978-30-53 01:35:00* Test Item Value Reference Range Interpretation Comments Urine Leukocyte Esterase (test code = 36986-6) TRACE NEGATIV E H [facility] Qtzjbgs4816-91-63 01:35:00* Test Item Value Reference Range Interpretation Comments Urine Nitrite (test code = 48329-4) NEGATIVE NEGATIVE [facility] Ytdbrow6376-60-28 01:35:00* Test Item Value Reference Range Interpretation Comments Urine Protein (test code = 40734-7) NEGATIVE NEGATIVE [facility] Glucose (UA)2019-03-24 01:35:00* Test Item Value Reference Range Interpretation Comments Urine Glucose (UA) (test code = 49080-9) NEGATIVE NEGATIVE [facility] Azuvdtv1847-70-84 01:35:00* Test Item Value Reference Range Interpretation Comments Urine Ketones (test code = 31866-8) NEGATIVE NEGATIVE [facility] Gytjrsomvwns3081-87-92 01:35:00* Test Item Value Reference Range Interpretation Comments Urine Urobilinogen (test code = 62801-0) 0.2 0.2-1 [facility] Fdijxuike0037-37-07 01:35:00* Test Item Value Reference Range Interpretation Comments Urine Bilirubin (test code = 1977-8) NEGATIVE NEGATIVE [facility] Ewoes5974-73-16 01:35:00* Test Item Value Reference Range Interpretation Comments Urine Blood (test code = 24372-9) NEGATIVE NEGATIVE [facility] Lmyocgb0456-04-86 22:56:00* Test Item Value Reference Range Interpretation Comments Blood Culture (test code = 17572228) NO GROWTH AFTER 5 DAYS, FINAL REPORT [facility] Oeckzxo0377-77-60 22:56:00* Test Item Value Reference Range Interpretation Comments Blood Culture (test code = 82574210) NO GROWTH AFTER 5 DAYS, FINAL REPORT [facility] Qikqdjm7812-47-52 22:56:00* Test Item Value Reference Range Interpretation Comments Blood Culture (test code = 95198735) NO GROWTH AFTER 5 DAYS, FINAL REPORT [facility] Uclakfs5942-54-04 07:49:00* Test Item Value Reference Range Interpretation Comments Bedside Glucose (test code = 11974-0) 156 70-120 H Meter ID: [id number] Glucose 2018-12-24 07:49:00* Test Item Value Reference Range Interpretation Comments Bedside Glucose (test code = 86011-6) 156 70-120 H Meter ID: [id number] Glucose 2018-12-24 07:49:00* Test Item Value Reference Range Interpretation Comments Bedside Glucose (test code = 86437-9) 156 70-120 H Meter ID: [id number] [facility] 2018-12-23 22:58:00* Test Item Value Reference Range Interpretation Comments Blood Culture (test code = 20283262) NO GROWTH AFTER 24 HOURS [facility] JF3365-68-15 15:52:00 [facility] [address] [place] [address] Patient Name: KANWAL DAVIDSON MR #: [id number] : 1945 Age/Sex: 73/M Req #: [id number] Adm Physician: DORY LOPEZ MD Ordered by: DORY LOPEZ MD Report #: [id number] Location: [facility]/Bed: [place] [address] Procedure: [id number] CT/CT C HEST WO Exam Date: 12/23/18 Exam Time: 1430 REPORT STATUS: Signed EXAM: CT Chest wit hout contrast INDICATION: Shortness of breath. COMPARISON: Chest radi ograph 12/23/2018. TECHNIQUE: Chest was scanned utilizing a multidetector helical scanner from the lung apex through the level of the adrenal glands wit hout administration of IV contrast. Coronal and sagittal reformations were obt ained. Routine protocol was performed. RADIATION DOSE: Total D LP: 431.7 mGy*cm Dose modulation, iterative reconstruction, and/or weight b ased adjustment of the mA/kV was utilized to reduce the radiation dose to as l ow as reasonably achievable. COMPLICATIONS: None FINDING S: LINES/ TUBES: None. LUNGS AND AIRWAYS: The central airways are solo nt. There are bilateral diffuse findings of pulmonary fibrosis with peripheral predominant interstitial opacities, architectural distortion, and bronchiecta sis. There is associated honeycombing, most pronounced within the right greate r than left upper lobes, middle lobe, and right lower lobe. There are multifoc al groundglass opacities, for example in the right lower lobe on series 3, susan ge 53, right upper lobe on image 24, and left upper lobe on image 45. No evide nce of lobar consolidative opacity. Diffuse opacity limits evaluation for unde rlying pulmonary nodule. PLEURA: The pleural spaces are clear. HEART A ND MEDIASTINUM: The thyroid gland is normal. No mediastinal, hilar or axillar y lymphadenopathy. Subcentimeter mediastinal lymph nodes, not meeting size cri teria for enlargement. There is mild cardiomegaly. No evidence of pericardial effusion. Extensive atherosclerotic coronary calcifications. Scattered atheros clerotic calcifications of the thoracic aorta and branch vessels. UPPER A BDOMEN: Limited non-contrast views of the upper abdomen. Subcentimeter hypoden sity within the spleen is incompletely characterized. BONES: The visualized bony thorax is within normal limits. SOFT TISSUES: Unremarkable. IMPR ESSION: Findings of diffuse fibrotic interstitial lung disease. Differential includes UIP versus fibrotic NSIP. Multifocal patchy ground glass opaciti es may be secondary to fibrotic lung changes, although superimposed pneumonia is possible in the appropriate clinical context. Extensive coronary ather osclerosis. Signed by: Dr. Melvina Elizondo MD on 12/23/2018 4:00 PM Dicta dafne By: MELVINA ELIZONDO MD 1600 Transcribed By: JENNIFER on 12/23/18 1600 COPY TO: DORY LOPEZ MD Creatine Gwvsbs5475-19-25 15:04:00* Test Item Value Reference Range Interpretation Comments Creatine Kinase (test code = 2157-6) 51 30-200 [facility] Kinase XL0420-60-15 15:04:00* Test Item Value Reference Range Interpretation Comments Creatine Kinase MB (test code = 72351-6) 1.20 0-5.0 [facility] Houston[facility]roponin [id number] 15:04:00* Test Item Value Reference Range Interpretation Comments Troponin I (test code = AWX8638) 0.006 0-0.300 [facility] Tcltsf6528-57-30 15:04:00* Test Item Value Reference Range Interpretation Comments Creatine Kinase (test code = 2157-6) 51 30-200 [facility] Kinase [id number] 15:04:00* Test Item Value Reference Range Interpretation Comments Creatine Kinase MB (test code = 13379-0) 1.20 0-5.0 [facility] HoustonTroponin Y2320-04-56 15:04:00* Test Item Value Reference Range Interpretation Comments Troponin I (test code = XSU6506) 0.006 0-0.300 [facility] Qycojq8536-59-96 15:04:00* Test Item Value Reference Range Interpretation Comments Creatine Kinase (test code = 2157-6) 51 30-200 [facility] Houston[facility] Kinase BS9394-38-40 15:04:00* Test Item Value Reference Range Interpretation Comments Creatine Kinase MB (test code = 50133-8) 1.20 0-5.0 [facility] HoustonTrop[facility] O3595-60-58 15:04:00* Test Item Value Reference Range Interpretation Comments Troponin I (test code = LXD7530) 0.006 0-0.300 [facility] HoustonCHES SINGLE (PORTABLE)2018-12-23 08:38:00 [place] [address] Patient Name: KANWAL DAVIDSON MR #: [id number] : 1945 Age/Sex: 73/M Req #: [id number] Adm Physician: DORY LOPEZ MD Ordered by: ERIK DE LOS SANTOS [employer] CHIEF Report #: [id number] Location: [facility] Room/Bed: [place] [address] Procedure: [id number] DX/C HEST SINGLE (PORTABLE) Exam Date: 12/23/18 Exam Time : 0650 REPORT STATUS: Signed EXA MINATION: CHEST SINGLE (PORTABLE) INDICATION: Shortness of breath. COMPARISON: Chest radiograph 12/22/2018. CT chest 03/09/2018. FINDIN GS: TUBES and LINES: Median sternotomy wires and mediastinal clips are in p lace. LUNGS: Lungs are not well inflated. Stable findings of pulmonary fi brosis with UIP appearance based on CT chest 03/09/2018. No new consolidation. PLEURA: No pleural effusion or pneumothorax. HEART AND MEDIASTINUM: Cardiac size is mildly enlarged. BONES AND SOFT TISSUES: No acute oss eous abnormality. UPPER ABDOMEN: No free air under the diaphragm. IMPRESSION: Unchanged pulmonary fibrosis although superimposed pneumonia is difficult to exclude. No new consolidation. Signed by: Dr. Melvina Elizondo MD on 12/23/2018 8:40 AM Dictated By: MELVINA ELIZONDO MD 0840 Transcribed By: JENNIFER on 12/23/18 0840 COPY TO: ERIK DE LOS SANTOS NP Sodium Cvxto3211-15-10 06:23:00* Test Item Value Reference Range Interpretation Comments Sodium Level (test code = 2951-2) 137 136-145 [facility] Iphgu1601-04-54 06:23:00* Test Item Value Reference Range Interpretation Comments Potassium Level (test code = 2823-3) 4.2 3.5-5.1 [facility] HoustonChloride Kgfyg3181-83-37 06:23:00* Test Item Value Reference Range Interpretation Comments Chloride Level (test code = 2075-0) 103 98-107 [facility] HoustonCarbon Dioxide Ywlta0204-40-53 06:23:00* Test Item Value Reference Range Interpretation Comments Carbon Dioxide Level (test code = 2028-9) 25 22-29 [facility] HoustonAnion Izl6489-71-84 06:23:00* Test Item Value Reference Range Interpretation Comments Anion Gap (test code = 81290-6) 13.2 8-16 [facility] HoustonBlood Urea Ocqcodew5535-33-65 06:23:00* Test Item Value Reference Range Interpretation Comments Blood Urea Nitrogen (test code = 3094-0) 12 7-26 [facility] HoustonCreatinine2019-04-13 06:23:00* Test Item Value Reference Range Interpretation Comments Creatinine (test code = 2160-0) 0.79 0.72-1.25 [facility] HoustonBUN/Creatinine Lxuds5915-26-26 06:23:00* Test Item Value Reference Range Interpretation Comments BUN/Creatinine Ratio (test code = 3097-3) 15 03-06 [facility] HoustonEstimat Glomerular Filtration Rate 2018-12-23 06:23:00* Test Item Value Reference Range Interpretation Comments Estimat Glomerular Filtration Rate (test code = 934736605) > 60 >60 Ranges were taken from the National Kidney Disease Education Program and the [facility] literature.Reference ranges:60 or greater: Udzdkc92-53 ( for 3 consecutive months): Chronic kidney disease 15 or less: Kidney failureNexus Children's Hospital HoustonGlucose Tzmox4287-96-83 06:23:00* Test Item Value Reference Range Interpretation Comments Glucose Level (test code = OLB1558) 133 74-118 H [facility] HoustonCalcium Djwwy2491-37-33 06:23:00* Test Item Value Reference Range Interpretation Comments Calcium Level (test code = 38257-6) 9.2 8.4-10.2 [facility] Drclg3177-58-87 06:23:00* Test Item Value Reference Range Interpretation Comments Sodium Level (test code = 2951-2) 137 136-145 [facility] HoustonPotassium Lyblm6989-92-88 06:23:00* Test Item Value Reference Range Interpretation Comments Potassium Level (test code = 2823-3) 4.2 3.5-5.1 [facility] HoustonChloride Cemuq8897-28-73 06:23:00* Test Item Value Reference Range Interpretation Comments Chloride Level (test code = 2075-0) 103 98-107 [facility] HoustonCarbon Dioxide Ionct2102-96-90 06:23:00* Test Item Value Reference Range Interpretation Comments Carbon Dioxide Level (test code = 2028-9) 25 -29 [facility] HoustonAnion Nzb0219-05-11 06:23:00* Test Item Value Reference Range Interpretation Comments Anion Gap (test code = 37219-8) 13.2 8-16 [facility] HoustonBlood Urea Udhemvbi0335-91-71 06:23:00* Test Item Value Reference Range Interpretation Comments Blood Urea Nitrogen (test code = 3094-0) 12 7-26 [facility] HoustonCreatinine2019-04-13 06:23:00* Test Item Value Reference Range Interpretation Comments Creatinine (test code = 2160-0) 0.79 0.72-1.25 [facility] HoustonBUN/Creatinine Wadnw1695-01-97 06:23:00* Test Item Value Reference Range Interpretation Comments BUN/Creatinine Ratio (test code = 3097-3) 15 6- [facility] HoustonEstimat Glomerular Filtration Rate 2018-12-23 06:23:00* Test Item Value Reference Range Interpretation Comments Estimat Glomerular Filtration Rate (test code = 574645917) > 60 >60 Ranges were taken from the National Kidney Disease Education Program and the [place] [facility] literature.Reference ranges:60 or greater: Sphunh82-64 ( for 3 consecutive months): Chronic kidney disease 15 or less: Kidney failureNexus Children's Hospital HoustonGlucose Alxqs7780-90-99 06:23:00* Test Item Value Reference Range Interpretation Comments Glucose Level (test code = KDD3179) 133 74-118 H [facility] HoustonCalcium Gahci7717-72-99 06:23:00* Test Item Value Reference Range Interpretation Comments Calcium Level (test code = 80861-7) 9.2 8.4-10.2 [facility] Center[facility] Grpdx3451-73-27 06:23:00* Test Item Value Reference Range Interpretation Comments Sodium Level (test code = 2951-2) 137 136-145 [facility] HoustonPotassium Jhoze0111-05-35 06:23:00* Test Item Value Reference Range Interpretation Comments Potassium Level (test code = 2823-3) 4.2 3.5-5.1 [facility] HoustonChloride Wbrgm1965-79-54 06:23:00* Test Item Value Reference Range Interpretation Comments Chloride Level (test code = 2075-0) 103 98-107 [facility] HoustonCarbon Dioxide Yrlwg2381-47-50 06:23:00* Test Item Value Reference Range Interpretation Comments Carbon Dioxide Level (test code = 2028-9) 25 22-29 [facility] HoustonAnion Etp4494-46-44 06:23:00* Test Item Value Reference Range Interpretation Comments Anion Gap (test code = 65008-0) 13.2 8-16 [facility] HoustonBlood Urea Avqbkxmv9777-61-01 06:23:00* Test Item Value Reference Range Interpretation Comments Blood Urea Nitrogen (test code = 3094-0) 12 7-26 [facility] HoustonCreatinine2019-04-13 06:23:00* Test Item Value Reference Range Interpretation Comments Creatinine (test code = 2160-0) 0.79 0.72-1.25 [facility] HoustonBUN/Creatinine Nuslk4263-51-67 06:23:00* Test Item Value Reference Range Interpretation Comments BUN/Creatinine Ratio (test code = 3097-3) 15 6-25 [facility] HoustonEstimat Glomerular Filtration Rate 2018-12-23 06:23:00* Test Item Value Reference Range Interpretation Comments Estimat Glomerular Filtration Rate (test code = 249431390) > 60 >60 Ranges were taken from the National Kidney Disease Education Program and the [place] [facility] literature.Reference ranges:60 or greater: Uxrqhc74-23 ( for 3 consecutive months): Chronic kidney disease 15 or less: Kidney failureNexus Children's Hospital HoustonGlucose Yrlvs7855-78-94 06:23:00* Test Item Value Reference Range Interpretation Comments Glucose Level (test code = XZQ3728) 133 74-118 H [facility] HoustonCalcium Wokrg6760-91-89 06:23:00* Test Item Value Reference Range Interpretation Comments Calcium Level (test code = 57358-4) 9.2 8.4-10.2 [facility] HoustonWhite Blood Wmbwi0554-84-47 06:02:00* Test Item Value Reference Range Interpretation Comments White Blood Count (test code = 6690-2) 5.39 4.8-10.8 [facility] HoustonRed Blood Gznef0569-30-64 06:02:00* Test Item Value Reference Range Interpretation Comments Red Blood Count (test code = 789-8) 4.11 4.3-5.7 L [facility] HoustonHemoglobin2019-04-13 06:02:00* Test Item Value Reference Range Interpretation Comments Hemoglobin (test code = 37417-3) 12.4 14.0-18.0 L [facility] HoustonHematocrit2019-04-13 06:02:00* Test Item Value Reference Range Interpretation Comments Hematocrit (test code = 4544-3) 37.8 38.2-49.6 L [facility] HoustonMean Corpuscular Iprkms8604-72-36 06:02:00* Test Item Value Reference Range Interpretation Comments Mean Corpuscular Volume (test code = 787-2) 92.0 81-99 [facility] HoustonMean Corpuscular Iyukhqsoha5815-43-32 06:02:00* Test Item Value Reference Range Interpretation Comments Mean Corpuscular Hemoglobin (test code = 785-6) 30.2 28-32 [facility] HoustonMean Corpuscular Hemoglobin Concent 2018-12-23 06:02:00* Test Item Value Reference Range Interpretation Comments Mean Corpuscular Hemoglobin Concent (test code = 786-4) 32.8 31-35 [facility] HoustonRed Cell Distribution Houyx8216-60-38 06:02:00* Test Item Value Reference Range Interpretation Comments Red Cell Distribution Width (test code = 84405-9) 14.4 11.7 -14.4 [facility] HoustonPlatelet Fxnjx5924-88-81 06:02:00* Test Item Value Reference Range Interpretation Comments Platelet Count (test code = 777-3) 142 140-360 [facility] HoustonNeutrophils (%) (Auto)2018-12-23 06:02:00 * Test Item Value Reference Range Interpretation Comments Neutrophils (%) (Auto) (test code = 74458-1) 71.1 38.7-80.0 [facility] HoustonLymphocytes (%) (Auto)2018-12-23 06:02:00 * Test Item Value Reference Range Interpretation Comments Lymphocytes (%) (Auto) (test code = 736-9) 16.9 18.0-39.1 L [facility] HoustonMonocytes (%) (Auto)2018-12-23 06:02:00* Test Item Value Reference Range Interpretation Comments Monocytes (%) (Auto) (test code = 5905-5) 8.2 4.4-11.3 [facility] HoustonEosinophils (%) (Auto)2018-12-23 06:02:00 * Test Item Value Reference Range Interpretation Comments Eosinophils (%) (Auto) (test code = 713-8) 2.8 0.0-6.0 [facility] HoustonBasophils (%) (Auto)2018-12-23 06:02:00* Test Item Value Reference Range Interpretation Comments Basophils (%) (Auto) (test code = 706-2) 0.4 0.0-1.0 [facility] HoustonIM GRANULOCYTES %2018-12-23 06:02:00* Test Item Value Reference Range Interpretation Comments IM GRANULOCYTES % (test code = IM GRANULOCYTES %) 0.6 0.0- 1.0 [facility] HoustonNeutrophils # (Auto)2018-12-23 06:02:00* Test Item Value Reference Range Interpretation Comments Neutrophils # (Auto) (test code = 751-8) 3.8 2.1-6.9 [facility] HoustonLymphocytes # (Auto)2018-12-23 06:02:00* Test Item Value Reference Range Interpretation Comments Lymphocytes # (Auto) (test code = 91432-8) 0.9 1.0-3.2 L [facility] HoustonMonocytes # (Auto)2018-12-23 06:02:00* Test Item Value Reference Range Interpretation Comments Monocytes # (Auto) (test code = 742-7) 0.4 0.2-0.8 [facility] HoustonEosinophils # (Auto)2018-12-23 06:02:00* Test Item Value Reference Range Interpretation Comments Eosinophils # (Auto) (test code = 711-2) 0.2 0.0-0.4 [facility] HoustonBasophils # (Auto)2018-12-23 06:02:00* Test Item Value Reference Range Interpretation Comments Basophils # (Auto) (test code = 704-7) 0.0 0.0-0.1 [facility] HoustonAbsolute Immature Granulocyte (auto 2018-12-23 06:02:00* Test Item Value Reference Range Interpretation Comments Absolute Immature Granulocyte (auto (leandra t code = Absolute Immature Granulocyte (auto) 0.03 0-0.1 [facility] HoustonWhite Blood Razcy2790-60-36 06:02:00* Test Item Value Reference Range Interpretation Comments White Blood Count (test code = 6690-2) 5.39 4.8-10.8 [facility] HoustonRed Blood Lanab2306-74-87 06:02:00* Test Item Value Reference Range Interpretation Comments Red Blood Count (test code = 789-8) 4.11 4.3-5.7 L [facility] HoustonHemoglobin2019-04-13 06:02:00* Test Item Value Reference Range Interpretation Comments Hemoglobin (test code = 93585-8) 12.4 14.0-18.0 L [facility] HoustonHematocrit2019-04-13 06:02:00* Test Item Value Reference Range Interpretation Comments Hematocrit (test code = 4544-3) 37.8 38.2-49.6 L [facility] HoustonMean Corpuscular Mnvjqw7308-73-51 06:02:00* Test Item Value Reference Range Interpretation Comments Mean Corpuscular Volume (test code = 787-2) 92.0 81-99 [facility] HoustonMean Corpuscular Foipcryyjg1944-36-67 06:02:00* Test Item Value Reference Range Interpretation Comments Mean Corpuscular Hemoglobin (test code = 785-6) 30.2 28-32 [facility] HoustonMean Corpuscular Hemoglobin Concent 2018-12-23 06:02:00* Test Item Value Reference Range Interpretation Comments Mean Corpuscular Hemoglobin Concent (test code = 786-4) 32.8 31-35 [facility] HoustonRed Cell Distribution Wcqhr5409-96-31 06:02:00* Test Item Value Reference Range Interpretation Comments Red Cell Distribution Width (test code = 07880-2) 14.4 11.7 -14.4 [facility] HoustonPlatelet Hetwu6265-86-27 06:02:00* Test Item Value Reference Range Interpretation Comments Platelet Count (test code = 777-3) 142 140-360 [facility] HoustonNeutrophils (%) (Auto)2018-12-23 06:02:00 * Test Item Value Reference Range Interpretation Comments Neutrophils (%) (Auto) (test code = 33603-0) 71.1 38.7-80.0 [facility] HoustonLymphocytes (%) (Auto)2018-12-23 06:02:00 * Test Item Value Reference Range Interpretation Comments Lymphocytes (%) (Auto) (test code = 736-9) 16.9 18.0-39.1 L [facility] HoustonMonocytes (%) (Auto)2018-12-23 06:02:00* Test Item Value Reference Range Interpretation Comments Monocytes (%) (Auto) (test code = 5905-5) 8.2 4.4-11.3 [facility] HoustonEosinophils (%) (Auto)2018-12-23 06:02:00 * Test Item Value Reference Range Interpretation Comments Eosinophils (%) (Auto) (test code = 713-8) 2.8 0.0-6.0 [facility] HoustonBasophils (%) (Auto)2018-12-23 06:02:00* Test Item Value Reference Range Interpretation Comments Basophils (%) (Auto) (test code = 706-2) 0.4 0.0-1.0 [facility] HoustonIM GRANULOCYTES %2018-12-23 06:02:00* Test Item Value Reference Range Interpretation Comments IM GRANULOCYTES % (test code = IM GRANULOCYTES %) 0.6 0.0- 1.0 [facility] HoustonNeutrophils # (Auto)2018-12-23 06:02:00* Test Item Value Reference Range Interpretation Comments Neutrophils # (Auto) (test code = 751-8) 3.8 2.1-6.9 [facility] HoustonLymphocytes # (Auto)2018-12-23 06:02:00* Test Item Value Reference Range Interpretation Comments Lymphocytes # (Auto) (test code = 13387-8) 0.9 1.0-3.2 L [facility] HoustonMonocytes # (Auto)2018-12-23 06:02:00* Test Item Value Reference Range Interpretation Comments Monocytes # (Auto) (test code = 742-7) 0.4 0.2-0.8 [facility] HoustonEosinophils # (Auto)2018-12-23 06:02:00* Test Item Value Reference Range Interpretation Comments Eosinophils # (Auto) (test code = 711-2) 0.2 0.0-0.4 [facility] HoustonBasophils # (Auto)2018-12-23 06:02:00* Test Item Value Reference Range Interpretation Comments Basophils # (Auto) (test code = 704-7) 0.0 0.0-0.1 [facility] HoustonAbsolute Immature Granulocyte (auto 2018-12-23 06:02:00* Test Item Value Reference Range Interpretation Comments Absolute Immature Granulocyte (auto (leandra t code = Absolute Immature Granulocyte (auto) 0.03 0-0.1 [facility] HoustonWhite Blood Rnfxz4382-64-00 06:02:00* Test Item Value Reference Range Interpretation Comments White Blood Count (test code = 6690-2) 5.39 4.8-10.8 [facility] HoustonRed Blood Gdedg4893-64-37 06:02:00* Test Item Value Reference Range Interpretation Comments Red Blood Count (test code = 789-8) 4.11 4.3-5.7 L [facility] HoustonHemoglobin2019-04-13 06:02:00* Test Item Value Reference Range Interpretation Comments Hemoglobin (test code = 43510-0) 12.4 14.0-18.0 L [facility] HoustonHematocrit2019-04-13 06:02:00* Test Item Value Reference Range Interpretation Comments Hematocrit (test code = 4544-3) 37.8 38.2-49.6 L [facility] HoustonMean Corpuscular Rlztxh3922-39-57 06:02:00* Test Item Value Reference Range Interpretation Comments Mean Corpuscular Volume (test code = 787-2) 92.0 81-99 [facility] HoustonMean Corpuscular Lcapwyufwb1755-31-54 06:02:00* Test Item Value Reference Range Interpretation Comments Mean Corpuscular Hemoglobin (test code = 785-6) 30.2 28-32 [facility] HoustonMean Corpuscular Hemoglobin Concent 2018-12-23 06:02:00* Test Item Value Reference Range Interpretation Comments Mean Corpuscular Hemoglobin Concent (test code = 786-4) 32.8 31-35 [facility] HoustonRed Cell Distribution Kbeel4249-63-62 06:02:00* Test Item Value Reference Range Interpretation Comments Red Cell Distribution Width (test code = 91769-2) 14.4 11.7 -14.4 [facility] HoustonPlatelet Smfvm4363-09-82 06:02:00* Test Item Value Reference Range Interpretation Comments Platelet Count (test code = 777-3) 142 140-360 [facility] HoustonNeutrophils (%) (Auto)2018-12-23 06:02:00 * Test Item Value Reference Range Interpretation Comments Neutrophils (%) (Auto) (test code = 00577-2) 71.1 38.7-80.0 [facility] HoustonLymphocytes (%) (Auto)2018-12-23 06:02:00 * Test Item Value Reference Range Interpretation Comments Lymphocytes (%) (Auto) (test code = 736-9) 16.9 18.0-39.1 L [facility] HoustonMonocytes (%) (Auto)2018-12-23 06:02:00* Test Item Value Reference Range Interpretation Comments Monocytes (%) (Auto) (test code = 5905-5) 8.2 4.4-11.3 [facility] HoustonEosinophils (%) (Auto)2018-12-23 06:02:00 * Test Item Value Reference Range Interpretation Comments Eosinophils (%) (Auto) (test code = 713-8) 2.8 0.0-6.0 [facility] HoustonBasophils (%) (Auto)2018-12-23 06:02:00* Test Item Value Reference Range Interpretation Comments Basophils (%) (Auto) (test code = 706-2) 0.4 0.0-1.0 [facility] HoustonIM GRANULOCYTES %2018-12-23 06:02:00* Test Item Value Reference Range Interpretation Comments IM GRANULOCYTES % (test code = IM GRANULOCYTES %) 0.6 0.0- 1.0 [facility] HoustonNeutrophils # (Auto)2018-12-23 06:02:00* Test Item Value Reference Range Interpretation Comments Neutrophils # (Auto) (test code = 751-8) 3.8 2.1-6.9 [facility] HoustonLymphocytes # (Auto)2018-12-23 06:02:00* Test Item Value Reference Range Interpretation Comments Lymphocytes # (Auto) (test code = 24274-5) 0.9 1.0-3.2 L [facility] HoustonMonocytes # (Auto)2018-12-23 06:02:00* Test Item Value Reference Range Interpretation Comments Monocytes # (Auto) (test code = 742-7) 0.4 0.2-0.8 [facility] HoustonEosinophils # (Auto)2018-12-23 06:02:00* Test Item Value Reference Range Interpretation Comments Eosinophils # (Auto) (test code = 711-2) 0.2 0.0-0.4 [facility] HoustonBasophils # (Auto)2018-12-23 06:02:00* Test Item Value Reference Range Interpretation Comments Basophils # (Auto) (test code = 704-7) 0.0 0.0-0.1 [facility] HoustonAbsolute Immature Granulocyte (auto 2018-12-23 06:02:00* Test Item Value Reference Range Interpretation Comments Absolute Immature Granulocyte (auto (leandra t code = Absolute Immature Granulocyte (auto) 0.03 0-0.1 [facility] HoustonCHEST 2 HVRWP7124-97-01 21:21:00 [place] [address] Patient Name: KANWAL DAVIDSON MR #: [id number] : 1945 Age/Sex: 73/M Req #: [id number] Adm Physician: Ordered by: ELIOT NEAL MD Report #: [id number] Location: ER Room/Bed: Procedure: [id number] DX/C HEST 2 VIEWS Exam Date: 12/22/18 Exam Time: 2019 REPORT STATUS: Signed EXAMINATION: CHEST 2 VIEWS INDICATION: Chest pain. COMPARISON: Chest x-r ay 09/23/2018. CT chest 03/09/2018. FINDINGS: PA and lateral views TUBES and LINES: Median sternotomy wires and mediastinal clips are in place. LUNGS: Lungs are not well inflated. Stable findings of pulmonary fibrosis with UIP appearance based on CT chest 03/09/2018. There is no evidence of pn eumonia or pulmonary edema. PLEURA: No pleural effusion or pneumothorax. HEART AND MEDIASTINUM: Cardiac size is mildly enlarged. BONES AND SOFT TISSUES: No acute osseous lesion. Soft tissues are unremarkable. U PPER ABDOMEN: No free air under the diaphragm. IMPRESSION: Unchanged pulmonary fibrosis. New underlying pneumonia is difficult to evaluate given t he extensive pulmonary fibrosis. Signed by: Dr. Omid Eden M.D. on 12/23/19 9:23 PM Dictated By: OMID EDEN MD 22 Transcribed By: JENNIFER on 12/22/182122 COPY TO: ELIOT HESTER MD B-Type Natriuretic Lbsinkn8135-72-49 20:41:00* Test Item Value Reference Range Interpretation Comments B-Type Natriuretic Peptide (test code = 35662-2) 100.0 0-100 [facility] HoustonAmylase Cjdiz5026-58-71 20:41:00* Test Item Value Reference Range Interpretation Comments Amylase Level (test code = 1798-8) 84 25-125 [facility] HoustonLipase2019-04-12 20:41:00* Test Item Value Reference Range Interpretation Comments Lipase (test code = 3040-3) 90 8-78 H [facility] HoustonB-Type Natriuretic Prqloya9253-12-00 20:41:00* Test Item Value Reference Range Interpretation Comments B-Type Natriuretic Peptide (test code = 27305-8) 100.0 0-100 [facility] HoustonAmylase Oymxp3699-28-91 20:41:00* Test Item Value Reference Range Interpretation Comments Amylase Level (test code = 1798-8) 84 25-125 [facility] HoustonLipase2019-04-12 20:41:00* Test Item Value Reference Range Interpretation Comments Lipase (test code = 3040-3) 90 8-78 H [facility] HoustonB-Type Natriuretic Tlrgqps4620-24-92 20:41:00* Test Item Value Reference Range Interpretation Comments B-Type Natriuretic Peptide (test code = 67690-9) 100.0 0-100 [facility] HoustonAmylase Cimck0222-06-90 20:41:00* Test Item Value Reference Range Interpretation Comments Amylase Level (test code = 1798-8) 84 25-125 [facility] HoustonLipase2019-04-12 20:41:00* Test Item Value Reference Range Interpretation Comments Lipase (test code = 3040-3) 90 8-78 H [facility] HoustonInfluenza Virus Types A,B Antigen 2018-12-22 20:34:00* Test Item Value Reference Range Interpretation Comments Influenza Virus Types A,B Antigen (test code = 82918-6) NEGATIVE NEGATIVE [facility] Efomaorrr6822-08-87 20:34:00* Test Item Value Reference Range Interpretation Comments Total Bilirubin (test code = 1975-2) 0.8 0.2-1.2 [facility] HoustonAspartate Amino Transf (AST/SGOT) 2018-12-22 20:34:00* Test Item Value Reference Range Interpretation Comments Aspartate Amino Transf (AST/SGOT) (test code = Aspartate Amino Transf (AST/SGOT)) 18 5-34 [facility] HoustonAlanine Aminotransferase (ALT/SGPT) 2018-12-22 20:34:00* Test Item Value Reference Range Interpretation Comments Alanine Aminotransferase (ALT/SGPT) (test code = 1742-6) 11 0-55 [facility] Ectyuxo7703-45-27 20:34:00* Test Item Value Reference Range Interpretation Comments Total Protein (test code = 2885-2) 7.4 6.5-8.1 [facility] HoustonAlbumin2019-04-12 20:34:00* Test Item Value Reference Range Interpretation Comments Albumin (test code = 1751-7) 3.7 3.5-5.0 [facility] HoustonGlobulin2019-04-12 20:34:00* Test Item Value Reference Range Interpretation Comments Globulin (test code = 52511-9) 3.7 2.3-3.5 H [facility] HoustonAlbumin/Globulin Aditi9422-80-05 20:34:00 * Test Item Value Reference Range Interpretation Comments Albumin/Globulin Ratio (test code = 1759-0) 1.0 0.8-2.0 [facility] HoustonAlkaline Hvyzoezmwga8659-52-48 20:34:00* Test Item Value Reference Range Interpretation Comments Alkaline Phosphatase (test code = 6768-6) 74 40-150 [facility] HoustonInfluenza Virus Types A,B Antigen 2018-12-22 20:34:00* Test Item Value Reference Range Interpretation Comments Influenza Virus Types A,B Antigen (test code = 32297-2) NEGATIVE NEGATIVE [facility] HoustonTotal Ymgeaoliw7579-79-35 20:34:00* Test Item Value Reference Range Interpretation Comments Total Bilirubin (test code = 1975-2) 0.8 0.2-1.2 [facility] HoustonAspartate Amino Transf (AST/SGOT) 2018-12-22 20:34:00* Test Item Value Reference Range Interpretation Comments Aspartate Amino Transf (AST/SGOT) (test code = Aspartate Amino Transf (AST/SGOT)) 18 5-34 [facility] HoustonAlanine Aminotransferase (ALT/SGPT) 2018-12-22 20:34:00* Test Item Value Reference Range Interpretation Comments Alanine Aminotransferase (ALT/SGPT) (test code = 1742-6) 11 0-55 [facility] HoustonTotal Xdzvlsj4945-25-40 20:34:00* Test Item Value Reference Range Interpretation Comments Total Protein (test code = 2885-2) 7.4 6.5-8.1 [facility] HoustonAlbumin2019-04-12 20:34:00* Test Item Value Reference Range Interpretation Comments Albumin (test code = 1751-7) 3.7 3.5-5.0 [facility] HoustonGlobulin2019-04-12 20:34:00* Test Item Value Reference Range Interpretation Comments Globulin (test code = 15310-5) 3.7 2.3-3.5 H [facility] HoustonAlbumin/Globulin Krvfk4452-23-69 20:34:00 * Test Item Value Reference Range Interpretation Comments Albumin/Globulin Ratio (test code = 1759-0) 1.0 0.8-2.0 [facility] HoustonAlkaline Jkfhqpcgfbk7762-75-05 20:34:00* Test Item Value Reference Range Interpretation Comments Alkaline Phosphatase (test code = 6768-6) 74 40-150 [facility] HoustonInfluenza Virus Types A,B Antigen 2018-12-22 20:34:00* Test Item Value Reference Range Interpretation Comments Influenza Virus Types A,B Antigen (test code = 45871-0) NEGATIVE NEGATIVE [facility] Djsqttpvs1772-07-88 20:34:00* Test Item Value Reference Range Interpretation Comments Total Bilirubin (test code = 1975-2) 0.8 0.2-1.2 [facility] HoustonAspartate Amino Transf (AST/SGOT) 2018-12-22 20:34:00* Test Item Value Reference Range Interpretation Comments Aspartate Amino Transf (AST/SGOT) (test code = Aspartate Amino Transf (AST/SGOT)) 18 5-34 [facility] HoustonAlanine Aminotransferase (ALT/SGPT) 2018-12-22 20:34:00* Test Item Value Reference Range Interpretation Comments Alanine Aminotransferase (ALT/SGPT) (test code = 1742-6) 11 0-55 [facility] HoustonTotal Bxwckpy3584-89-12 20:34:00* Test Item Value Reference Range Interpretation Comments Total Protein (test code = 2885-2) 7.4 6.5-8.1 [facility] HoustonAlbumin2019-04-12 20:34:00* Test Item Value Reference Range Interpretation Comments Albumin (test code = 1751-7) 3.7 3.5-5.0 [facility] HoustonGlobulin2019-04-12 20:34:00* Test Item Value Reference Range Interpretation Comments Globulin (test code = 60742-2) 3.7 2.3-3.5 H [facility] HoustonAlbumin/Globulin Eujaz9057-11-68 20:34:00 * Test Item Value Reference Range Interpretation Comments Albumin/Globulin Ratio (test code = 1759-0) 1.0 0.8-2.0 [facility] HoustonAlkaline Iikyxpltpfw1684-91-87 20:34:00* Test Item Value Reference Range Interpretation Comments Alkaline Phosphatase (test code = 6768-6) 74 40-150 [facility] HoustonInfluenza Virus Types A,B Antigen 2018-12-22 20:34:00* Test Item Value Reference Range Interpretation Comments Influenza Virus Types A,B Antigen (test code = 84510-8) NEGATIVE NEGATIVE [facility] HoustonUrine JOE2882-55-01 20:32:00* Test Item Value Reference Range Interpretation Comments Urine WBC (test code = 5821-4) 6-10 0-5 H [facility] HoustonUrine [id number] 20:32:00* Test Item Value Reference Range Interpretation Comments Urine RBC (test code = 53708-6) 0-5 0-5 [facility] HoustonUrine Irfifcsj4768-27-97 20:32:00* Test Item Value Reference Range Interpretation Comments Urine Bacteria (test code = 85898-2) MODERATE NONE H [facility] HoustonUrine Epithelial Udaql8088-06-27 20:32:00 * Test Item Value Reference Range Interpretation Comments Urine Epithelial Cells (test code = 53272-6) FEW NONE [facility] HoustonPhosphorus Irwqr0813-76-15 20:30:00* Test Item Value Reference Range Interpretation Comments Phosphorus Level (test code = UDJ0540) 3.0 2.3-4.7 [facility] HoustonMagnesium Esnmo5440-58-81 20:30:00* Test Item Value Reference Range Interpretation Comments Magnesium Level (test code = 71531-3) 1.9 1.3-2.1 [facility] HoustonPhosphorus Aspfy9793-63-32 20:30:00* Test Item Value Reference Range Interpretation Comments Phosphorus Level (test code = XMS6521) 3.0 2.3-4.7 [facility] HoustonMagnesium Gnirb6164-50-04 20:30:00* Test Item Value Reference Range Interpretation Comments Magnesium Level (test code = 90480-9) 1.9 1.3-2.1 [facility] HoustonPhosphorus Egjqq0978-90-96 20:30:00* Test Item Value Reference Range Interpretation Comments Phosphorus Level (test code = MKH7555) 3.0 2.3-4.7 [facility] HoustonMagnesium Miijl8336-79-15 20:30:00* Test Item Value Reference Range Interpretation Comments Magnesium Level (test code = 37711-3) 1.9 1.3-2.1 [facility] HoustonPhosphorus Amwfw2276-62-12 20:30:00* Test Item Value Reference Range Interpretation Comments Phosphorus Level (test code = OCH2448) 3.0 2.3-4.7 [facility] HoustonMagnesium Btsiu5924-45-45 20:30:00* Test Item Value Reference Range Interpretation Comments Magnesium Level (test code = 73366-0) 1.9 1.3-2.1 [facility] HoustonLactic Acid Njqif7260-06-83 20:29:00* Test Item Value Reference Range Interpretation Comments Lactic Acid Level (test code = Lactic Acid Level) 11.7 4.5- 19.8 [facility] HoustonLactic Acid Aixnk2048-14-21 20:29:00* Test Item Value Reference Range Interpretation Comments Lactic Acid Level (test code = Lactic Acid Level) 11.7 4.5- 19.8 [facility] HoustonLactic Acid Xzgmq9738-45-05 20:29:00* Test Item Value Reference Range Interpretation Comments Lactic Acid Level (test code = Lactic Acid Level) 11.7 4.5- 19.8 [facility] HoustonLactic Acid Owxic8877-93-92 20:29:00* Test Item Value Reference Range Interpretation Comments Lactic Acid Level (test code = Lactic Acid Level) 11.7 4.5- 19.8 [facility] HoustonProthrombin Pgbk8642-48-32 20:26:00* Test Item Value Reference Range Interpretation Comments Prothrombin Time (test code = 5902-2) 13.8 11.9-14.5 [facility] HoustonProthromb Time International Ratio 2018-12-22 20:26:00* Test Item Value Reference Range Interpretation Comments Prothromb Time International Ratio (test code = 6301-6) 1.01 Oral Anticoagulant Therapy INR Values:1. Low Intensity Therapy 1.5 - 2.02 . Moderate Intensity Therapy 2.0 - 3.03. High Intensity Therapy(1) 2.5 - 3. 54. High Intensity Therapy(2) 3.0 - 4.05. Panic Value INR > 5.0 [facility] HoustonActivated Partial Thromboplast Time 2018-12-22 20:26:00* Test Item Value Reference Range Interpretation Comments Activated Partial Thromboplast Time (test code = 26983-0) 32.0 23.8-35.5 [facility] HoustonProthrombin Qwgn6849-13-39 20:26:00* Test Item Value Reference Range Interpretation Comments Prothrombin Time (test code = 5902-2) 13.8 11.9-14.5 [facility] HoustonProthromb Time International Ratio 2018-12-22 20:26:00* Test Item Value Reference Range Interpretation Comments Prothromb Time International Ratio (test code = 6301-6) 1.01 Oral Anticoagulant Therapy INR Values:1. Low Intensity Therapy 1.5 - 2.02 . Moderate Intensity Therapy 2.0 - 3.03. High Intensity Therapy(1) 2.5 - 3. 54. High Intensity Therapy(2) 3.0 - 4.05. Panic Value INR > 5.0 [facility] HoustonActivated Partial Thromboplast Time 2018-12-22 20:26:00* Test Item Value Reference Range Interpretation Comments Activated Partial Thromboplast Time (test code = 85417-0) 32.0 23.8-35.5 [facility] HoustonProthrombin Pcdy6073-23-18 20:26:00* Test Item Value Reference Range Interpretation Comments Prothrombin Time (test code = 5902-2) 13.8 11.9-14.5 [facility] HoustonProthromb Time International Ratio 2018-12-22 20:26:00* Test Item Value Reference Range Interpretation Comments Prothromb Time International Ratio (test code = 6301-6) 1.01 Oral Anticoagulant Therapy INR Values:1. Low Intensity Therapy 1.5 - 2.02 . Moderate Intensity Therapy 2.0 - 3.03. High Intensity Therapy(1) 2.5 - 3. 54. High Intensity Therapy(2) 3.0 - 4.05. Panic Value INR > 5.0 [facility] HoustonActivated Partial Thromboplast Time 2018-12-22 20:26:00* Test Item Value Reference Range Interpretation Comments Activated Partial Thromboplast Time (test code = 83840-8) 32.0 23.8-35.5 [facility] HoustonProthrombin Lsux4044-44-94 20:26:00* Test Item Value Reference Range Interpretation Comments Prothrombin Time (test code = 5902-2) 13.8 11.9-14.5 [facility] HoustonProthromb Time International Ratio 2018-12-22 20:26:00* Test Item Value Reference Range Interpretation Comments Prothromb Time International Ratio (test code = 6301-6) 1.01 Oral Anticoagulant Therapy INR Values:1. Low Intensity Therapy 1.5 - 2.02 . Moderate Intensity Therapy 2.0 - 3.03. High Intensity Therapy(1) 2.5 - 3. 54. High Intensity Therapy(2) 3.0 - 4.05. Panic Value INR > 5.0 [facility] Partial Thromboplast Time 2018-12-22 20:26:00* Test Item Value Reference Range Interpretation Comments Activated Partial Thromboplast Time (test code = 75512-4) 32.0 23.8-35.5 [facility] HoustonU[facility] Rlwoz1145-66-47 20:23:00* Test Item Value Reference Range Interpretation Comments Urine Color (test code = 5778-6) YELLOW YELLOW [facility] HoustonU[facility] Ripudkf6551-58-50 20:23:00* Test Item Value Reference Range Interpretation Comments Urine Clarity (test code = 04815-8) SL CLOUDY CLEAR H [facility] HoustonUrine Specific Eycltea8662-50-38 20:23:00 * Test Item Value Reference Range Interpretation Comments Urine Specific [place] (test code = 5811-5) 1.015 1.010-1.02 5 [facility] Houston[facility] mT0010-41-05 20:23:00* Test Item Value Reference Range Interpretation Comments Urine pH (test code = 42327-0) 6 5-7 [facility] Leukocyte Dijlfqjg0417-57-39 20:23:00* Test Item Value Reference Range Interpretation Comments Urine Leukocyte Esterase (test code = 5799-2) TRACE NEGATIVE H [facility] HoustonU[facility] Ozdwnew4010-10-42 20:23:00* Test Item Value Reference Range Interpretation Comments Urine Nitrite (test code = 16015-3) NEGATIVE NEGATIVE [facility] HoustonU[facility] Abwvlon2473-30-95 20:23:00* Test Item Value Reference Range Interpretation Comments Urine Protein (test code = 5804-0) TRACE NEGATIVE H [facility] HoustonU[facility] Glucose (UA)2018-12-22 20:23:00* Test Item Value Reference Range Interpretation Comments Urine Glucose (UA) (test code = 2349-9) NEGATIVE NEGATIVE [facility] HoustonU[facility] Czejsoz0954-41-56 20:23:00* Test Item Value Reference Range Interpretation Comments Urine Ketones (test code = 53910-4) NEGATIVE NEGATIVE [facility] Dgvmusfxyjmx1784-83-56 20:23:00* Test Item Value Reference Range Interpretation Comments Urine Urobilinogen (test code = 94099-1) 0.2 0.2-1 [facility] HoustonU[facility] Uarezxokm0665-28-21 20:23:00* Test Item Value Reference Range Interpretation Comments Urine Bilirubin (test code = 1978-6) NEGATIVE NEGATIVE [facility] Houston[facility] Vrmjp6471-63-38 20:23:00* Test Item Value Reference Range Interpretation Comments Urine Blood (test code = 15097-1) TRACE NEGATIVE [facility] GRONY3438-70-45 01:16:00 [place] [address] Patient Name: KANWAL DAVIDSON MR #: [id number] : 1945 Age/Sex: 73/M Req #: [id number] Adm Physician: Ordered by: STEPHANIE HANNAH MD Report #: [id number] Location: ER Room/Bed: Procedure: [id number] DX/CHEST 2 VIEWS Exam Date: 09/23/18 Exam Time: 0 040 REPORT STATUS: Signed CHEST 2 VIEWS, Technique: CHEST 2 VIEWS Comparison: 03/09/2018 Clinical hi story: Cough DISCUSSION: Stable mildly enlarged cardiomediastinal silho uette status post median sternotomy. Low lung volumes with unchanged coarse bi lateral reticular opacities, likely related to scarring/fibrosis. No effusion or pneumothorax. IMPRESSION: Stable chest. Signed by: Dr Angel bangura MD on 09/23/2018 1:19 AM Dictated By: ANGEL STAUFFER MD Electronical ly Signed By: ANGEL STAUFFER MD on 09/23/18118 Transcribed By: JENNIFER on 118 COPY TO: STEPHANIE HANNAH MD Bedside Glucose 2018-03-10 16:12:00* Test Item Value Reference Range Interpretation Comments Bedside Glucose (test code = 46879-3) 98 70-120 Meter ID: [id number] [facility] 2018-03-10 11:50:00* Test Item Value Reference Range Interpretation Comments Bedside Glucose (test code = 15602-6) 133 70-120 H Meter ID: [id number] [facility] Lancasteresium Level 2018-03-09 18:08:00* Test Item Value Reference Range Interpretation Comments Magnesium Level (test code = 09235-0) 2.7 1.3-2.1 H [facility] Mnrnz0346-02-48 18:08:00* Test Item Value Reference Range Interpretation Comments Magnesium Level (test code = 24848-7) 2.7 1.3-2.1 H [facility] HoustonCT CHEST AI1763-05-31 11:07:00 [facility] [address] [place] [address] Patient Name: KANWAL DAVIDSON MR #: [id number] : 0 1945 Age/Sex: 72/M Req #: [id number] [facility] Physician: DORY LOPEZ MD Ordered by: DORY LOPEZ MD Report #: [id number] Location: MED /SURG3 Room/Bed: 290-1 Procedure: [id number] CT/CT [facility] Exam Date: 03/09/18 Exam Time: 1015 REPO RT STATUS: Signed PROCEDURE: CT CHEST WITHOUT CONTRAST CT scan of the chest WITHOUT intravenous contrast, using standard protocol. TECHNIQUE: Th e chest was scanned utilizing a multidetector helical scanner from the apex t o the level of the adrenal glands. No IV contrast was administered because o f referring physician request. Coronal and sagittal multiplanar reformations were obtained. COMPARISON: Chest radiograph 03/08/2018. INDICATIONS: short of breath FINDINGS: Lines/tubes: None. Lungs and Air ways: Traction bronchiectasis with interlobular septal thickening, ground gla ss opacities and multiple stacked juxtapleural cysts in a honeycombing config uration without a definite apical-basal gradient. No airspace consolidation o r gross mass lesion. Pleura: No pleural effusion or pneumothorax. He art and mediastinum: Postsurgical changes of the mediastinum related to coron fabricio artery bypass graft. Normal heart size. No pericardial effusion. No axill fabricio, hilar, or mediastinal lymphadenopathy. The esophagus is mildly patulous. Great vessel origins are normal in caliber with a common origin of the innom inate and left common carotid artery from the aortic arch. Atherosclerotic ca lcification of the aortic arch and [place] coronary arteries. Soft tissu es: Normal. Abdomen: Visualized portions of the liver, gallbladder, spleen , pancreas, and adrenal glands are unremarkable. Bones: No osseous dest ructive lesions. Postsurgical changes of median sternotomy. Diffuse osteopeni a with multilevel degenerative disc changes of the partially visualized lower cervical and thoracic spine. IMPRESSION: Pulmonary findings compat ible with interstitial lung disease, specifically usual interstitial pneumoni a (UIP). This may be idiopathic, or seen in the setting of collagen vascular disease or drug toxicities (amiodarone, bleomycin). Atherosclerotic vascular disease status post CABG. Dictated by: Shad Greco M.D. on 02/11 at 11:07 Electronically approved by: Shad Greco M.D. on 8 at 11:07 Dictated By: SHAD GRECO MD 06 Transcribed By: ERNESTINE on 03/09/181106 COPY TO: DORY LOPEZ MD Creatine Zodons3504-07-61 04:02:00* Test Item Value Reference Range Interpretation Comments Creatine Kinase (test code = 2157-6) 89 30-200 [facility] HoustonCreat[facility] Kinase WZ0412-54-87 04:02:00* Test Item Value Reference Range Interpretation Comments Creatine Kinase MB (test code = 77223-0) 0.70 0-5.0 [facility] HoustonTroponin Y5809-28-17 04:02:00* Test Item Value Reference Range Interpretation Comments Troponin I (test code = ZKW9828) 0.003 0-0.300 [facility] HoustonCreatine Jluofq9815-60-95 04:02:00* Test Item Value Reference Range Interpretation Comments Creatine Kinase (test code = 2157-6) 89 30-200 [facility] HoustonCreatine Kinase [id number] 04:02:00* Test Item Value Reference Range Interpretation Comments Creatine Kinase MB (test code = 34163-1) 0.70 0-5.0 [facility] HoustonTroponin S4251-53-27 04:02:00* Test Item Value Reference Range Interpretation Comments Troponin I (test code = TGJ2315) 0.003 0-0.300 [facility] HoustonB-Type Natriuretic Sxwmbuz9634-93-33 11:55:00* Test Item Value Reference Range Interpretation Comments B-Type Natriuretic Peptide (test code = 11511-0) 105.6 0-100 H [facility] HoustonB-Type Natriuretic Ajyagsc9954-55-33 11:55:00* Test Item Value Reference Range Interpretation Comments B-Type Natriuretic Peptide (test code = 95728-7) 105.6 0-100 [facility] Centerodium Plslu4015-92-92 11:53:00* Test Item Value Reference Range Interpretation Comments Sodium Level (test code = 2951-2) 139 136-145 [facility] HoustonPotassium Dmegp5649-18-71 11:53:00* Test Item Value Reference Range Interpretation Comments Potassium Level (test code = 2823-3) 4.1 3.5-5.1 [facility] HoustonChloride Rehda4616-07-20 11:53:00* Test Item Value Reference Range Interpretation Comments Chloride Level (test code = 2075-0) 104 98-107 [facility] HoustonCarbon Dioxide Fhghy9394-69-10 11:53:00* Test Item Value Reference Range Interpretation Comments Carbon Dioxide Level (test code = 2028-9) 21 22-29 L [facility] HoustonAnion Bwk9380-88-32 11:53:00* Test Item Value Reference Range Interpretation Comments Anion Gap (test code = 16731-2) 18.1 8-16 H [facility] HoustonBlood Urea Cqfgqtds1124-08-88 11:53:00* Test Item Value Reference Range Interpretation Comments Blood Urea Nitrogen (test code = 3094-0) 16 7-26 [facility] HoustonCreatinine2018-06-27 11:53:00* Test Item Value Reference Range Interpretation Comments Creatinine (test code = 2160-0) 1.02 0.72-1.25 [facility] HoustonBUN/Creatinine Uwtbq6577-40-84 11:53:00* Test Item Value Reference Range Interpretation Comments BUN/Creatinine Ratio (test code = 3097-3) 16 6-25 [facility] HoustonEstimat Glomerular Filtration Rate 2018-03-08 11:53:00* Test Item Value Reference Range Interpretation Comments Estimat Glomerular Filtration Rate (test code = 72359-1) 60- >60 Ranges were taken from the National Kidney Disease Education Program and the [place] [facility] literature.Reference ranges:60 or greater: Ovfykz10-10 ( for 3 consecutive months): Chronic kidney disease 15 or less: Kidney failureNexus Children's Hospital HoustonGlucose Qsida3900-43-81 11:53:00* Test Item Value Reference Range Interpretation Comments Glucose Level (test code = HXG2442) 161 74-118 H [facility] HoustonCalcium Ebxea3748-89-05 11:53:00* Test Item Value Reference Range Interpretation Comments Calcium Level (test code = 98710-9) 9.8 8.4-10.2 [facility] HoustonTotal Xjaudeyfb2386-01-90 11:53:00* Test Item Value Reference Range Interpretation Comments Total Bilirubin (test code = 1975-2) 0.4 0.2-1.2 [facility] HoustonAspartate Amino Transf (AST/SGOT) 2018-03-08 11:53:00* Test Item Value Reference Range Interpretation Comments Aspartate Amino Transf (AST/SGOT) (test code = Aspartate Amino Transf (AST/SGOT)) 22 5-34 [facility] HoustonAlanine Aminotransferase (ALT/SGPT) 2018-03-08 11:53:00* Test Item Value Reference Range Interpretation Comments Alanine Aminotransferase (ALT/SGPT) (test code = 1742-6) 22 0-55 [facility] HoustonTotal Vkhfntn3650-85-73 11:53:00* Test Item Value Reference Range Interpretation Comments Total Protein (test code = 2885-2) 8.1 6.5-8.1 [facility] HoustonAlbumin2018-06-27 11:53:00* Test Item Value Reference Range Interpretation Comments Albumin (test code = 1751-7) 3.8 3.5-5.0 [facility] HoustonGlobulin2018-06-27 11:53:00* Test Item Value Reference Range Interpretation Comments Globulin (test code = 86260-0) 4.3 2.3-3.5 H [facility] HoustonAlbumin/Globulin Ikwuo2290-83-56 11:53:00 * Test Item Value Reference Range Interpretation Comments Albumin/Globulin Ratio (test code = 1759-0) 0.9 0.8-2.0 [facility] HoustonAlkaline Jhpxootqydx4524-24-39 11:53:00* Test Item Value Reference Range Interpretation Comments Alkaline Phosphatase (test code = 6768-6) 104 40-150 [facility] Centerodium Ntafb6706-44-53 11:53:00* Test Item Value Reference Range Interpretation Comments Sodium Level (test code = 2951-2) 139 136-145 [facility] HoustonPotassium Txhyj7271-52-88 11:53:00* Test Item Value Reference Range Interpretation Comments Potassium Level (test code = 2823-3) 4.1 3.5-5.1 [facility] HoustonChloride Qxjiv8788-23-76 11:53:00* Test Item Value Reference Range Interpretation Comments Chloride Level (test code = 2075-0) 104 98-107 [facility] HoustonCarbon Dioxide Zxrfx7298-14-20 11:53:00* Test Item Value Reference Range Interpretation Comments Carbon Dioxide Level (test code = 2028-9) 21 22-29 L [facility] HoustonAnion Itb4178-16-18 11:53:00* Test Item Value Reference Range Interpretation Comments Anion Gap (test code = 15838-4) 18.1 8-16 H [facility] HoustonBlood Urea Mdmlwxem3970-51-04 11:53:00* Test Item Value Reference Range Interpretation Comments Blood Urea Nitrogen (test code = 3094-0) 16 7-26 [facility] HoustonCreatinine2018-06-27 11:53:00* Test Item Value Reference Range Interpretation Comments Creatinine (test code = 2160-0) 1.02 0.72-1.25 [facility] HoustonBUN/Creatinine Ryubx3575-31-28 11:53:00* Test Item Value Reference Range Interpretation Comments BUN/Creatinine Ratio (test code = 3097-3) 16 6-25 [facility] HoustonEstimat Glomerular Filtration Rate 2018-03-08 11:53:00* Test Item Value Reference Range Interpretation Comments Estimat Glomerular Filtration Rate (test code = 482825468) > 60 >60 Ranges were taken from the National Kidney Disease Education Program and the [place] [facility] Foundation literature.Reference ranges:60 or greater: Xuobjt85-66 ( for 3 consecutive months): Chronic kidney disease 15 or less: Kidney failureNexus Children's Hospital HoustonGlucose Tjszj1710-89-20 11:53:00* Test Item Value Reference Range Interpretation Comments Glucose Level (test code = SPE5820) 161 74-118 H [facility] HoustonCalcium Drjmy6346-71-63 11:53:00* Test Item Value Reference Range Interpretation Comments Calcium Level (test code = 25543-7) 9.8 8.4-10.2 [facility] HoustonTotal Tehaecajy9322-82-54 11:53:00* Test Item Value Reference Range Interpretation Comments Total Bilirubin (test code = 1975-2) 0.4 0.2-1.2 [facility] HoustonAspartate Amino Transf (AST/SGOT) 2018-03-08 11:53:00* Test Item Value Reference Range Interpretation Comments Aspartate Amino Transf (AST/SGOT) (test code = Aspartate Amino Transf (AST/SGOT)) 22 5-34 [facility] HoustonAlanine Aminotransferase (ALT/SGPT) 2018-03-08 11:53:00* Test Item Value Reference Range Interpretation Comments Alanine Aminotransferase (ALT/SGPT) (test code = 1742-6) 22 0-55 [facility] HoustonTotal Utjmbbo6477-82-61 11:53:00* Test Item Value Reference Range Interpretation Comments Total Protein (test code = 2885-2) 8.1 6.5-8.1 [facility] HoustonAlbumin2018-06-27 11:53:00* Test Item Value Reference Range Interpretation Comments Albumin (test code = 1751-7) 3.8 3.5-5.0 [facility] HoustonGlobulin2018-06-27 11:53:00* Test Item Value Reference Range Interpretation Comments Globulin (test code = 07928-7) 4.3 2.3-3.5 H [facility] HoustonAlbumin/Globulin Twdvb8984-98-54 11:53:00 * Test Item Value Reference Range Interpretation Comments Albumin/Globulin Ratio (test code = 1759-0) 0.9 0.8-2.0 [facility] HoustonAlkaline Zhvwzswwlwm4775-30-61 11:53:00* Test Item Value Reference Range Interpretation Comments Alkaline Phosphatase (test code = 6768-6) 104 40-150 [facility] HoustonCHEST 2 SEMKM9517-78-98 11:48:00 [facility] [address] [place] [address] Patient Name: KANWAL DAVIDSON MR #: [id number] : 0 1945 Age/Sex: 72/M Req #: [id number] Adm Physician: Ordered by: SAMIA TERRY MD Report #: [id number] Location: ER Room/ Bed: Procedure: [id number] DX/CHEST 2 VIEWS Exam Date : 03/08/18 Exam Time: 1125 REPORT STATUS: Edita d PROCEDURE: Frontal and lateral views of the chest. COMPARISON: Ches t radiograph 05/01/2015 INDICATIONS: COUGH/SOB/FLUID ON LUNGS F INDINGS: Lines/tubes: None. Lungs: The lungs are moderately inflated. There is central pulmonary venous congestion with diffuse interstitial opacit ies. Pleura: There is no pleural effusion or pneumothorax. Heart an d mediastinum: Stable mild enlargement of the cardiac silhouette. CABG clip s. Bones: No acute bony abnormality. Median sternotomy wires. IMP RESSION: Findings suggestive of cardiogenic interstitial edema. D ictated by: Naresh Hung M.D. on 03/08/2018 at 11:48 Electronically keri roved by: Naresh Hung M.D. on 03/08/2018 at 11:48 Dictated By: NARESH HUNG MD 114 8 Transcribed By: ERNESTINE on 03/08/18 1148 COPY TO: SAMIA TERRY MD White Blood Dmtpp5592-95-93 11:36:00* Test Item Value Reference Range Interpretation Comments White Blood Count (test code = 6690-2) 8.24 4.8-10.8 [facility] HoustonRed Blood Vjrmc4765-89-87 11:36:00* Test Item Value Reference Range Interpretation Comments Red Blood Count (test code = 789-8) 4.26 4.3-5.7 L [facility] HoustonHemoglobin2018-06-27 11:36:00* Test Item Value Reference Range Interpretation Comments Hemoglobin (test code = 28636-8) 13.1 14.0-18.0 L [facility] HoustonHematocrit2018-06-27 11:36:00* Test Item Value Reference Range Interpretation Comments Hematocrit (test code = 4544-3) 39.6 38.2-49.6 [facility] HoustonMean Corpuscular Tdnsii7010-71-71 11:36:00* Test Item Value Reference Range Interpretation Comments Mean Corpuscular Volume (test code = 787-2) 93.0 81-99 [facility] HoustonMean Corpuscular Vyajdtayis6737-05-09 11:36:00* Test Item Value Reference Range Interpretation Comments Mean Corpuscular Hemoglobin (test code = 785-6) 30.8 28-32 [facility] HoustonMean Corpuscular Hemoglobin Concent 2018-03-08 11:36:00* Test Item Value Reference Range Interpretation Comments Mean Corpuscular Hemoglobin Concent (test code = 786-4) 33.1 31-35 [facility] HoustonRed Cell Distribution Uiwnb2855-18-79 11:36:00* Test Item Value Reference Range Interpretation Comments Red Cell Distribution Width (test code = 04209-0) 13.4 11.7 -14.4 [facility] HoustonPlatelet Nslcj8683-58-14 11:36:00* Test Item Value Reference Range Interpretation Comments Platelet Count (test code = 777-3) 236 140-360 [facility] HoustonNeutrophils (%) (Auto)2018-03-08 11:36:00 * Test Item Value Reference Range Interpretation Comments Neutrophils (%) (Auto) (test code = 09971-4) 69.8 38.7-80.0 [facility] HoustonLymphocytes (%) (Auto)2018-03-08 11:36:00 * Test Item Value Reference Range Interpretation Comments Lymphocytes (%) (Auto) (test code = 736-9) 19.4 18.0-39.1 [facility] HoustonMonocytes (%) (Auto)2018-03-08 11:36:00* Test Item Value Reference Range Interpretation Comments Monocytes (%) (Auto) (test code = 5905-5) 6.7 4.4-11.3 [facility] HoustonEosinophils (%) (Auto)2018-03-08 11:36:00 * Test Item Value Reference Range Interpretation Comments Eosinophils (%) (Auto) (test code = 713-8) 2.9 0.0-6.0 [facility] HoustonBasophils (%) (Auto)2018-03-08 11:36:00* Test Item Value Reference Range Interpretation Comments Basophils (%) (Auto) (test code = 706-2) 0.5 0.0-1.0 [facility] HoustonIM GRANULOCYTES %2018-03-08 11:36:00* Test Item Value Reference Range Interpretation Comments IM GRANULOCYTES % (test code = IM GRANULOCYTES %) 0.7 0.0- 1.0 [facility] HoustonNeutrophils # (Auto)2018-03-08 11:36:00* Test Item Value Reference Range Interpretation Comments Neutrophils # (Auto) (test code = 751-8) 5.8 2.1-6.9 [facility] HoustonLymphocytes # (Auto)2018-03-08 11:36:00* Test Item Value Reference Range Interpretation Comments Lymphocytes # (Auto) (test code = 31307-6) 1.6 1.0-3.2 [facility] HoustonMonocytes # (Auto)2018-03-08 11:36:00* Test Item Value Reference Range Interpretation Comments Monocytes # (Auto) (test code = 742-7) 0.6 0.2-0.8 [facility] HoustonEosinophils # (Auto)2018-03-08 11:36:00* Test Item Value Reference Range Interpretation Comments Eosinophils # (Auto) (test code = 711-2) 0.2 0.0-0.4 [facility] HoustonBasophils # (Auto)2018-03-08 11:36:00* Test Item Value Reference Range Interpretation Comments Basophils # (Auto) (test code = 704-7) 0.0 0.0-0.1 [facility] HoustonAbsolute Immature Granulocyte (auto 2018-03-08 11:36:00* Test Item Value Reference Range Interpretation Comments Absolute Immature Granulocyte (auto (leandra t code = Absolute Immature Granulocyte (auto) 0.06 0-0.1 [facility] HoustonWhite Blood Zhcbg1895-45-26 11:36:00* Test Item Value Reference Range Interpretation Comments White Blood Count (test code = 6690-2) 8.24 4.8-10.8 [facility] HoustonRed Blood Omjts9689-63-93 11:36:00* Test Item Value Reference Range Interpretation Comments Red Blood Count (test code = 789-8) 4.26 4.3-5.7 L [facility] HoustonHemoglobin2018-06-27 11:36:00* Test Item Value Reference Range Interpretation Comments Hemoglobin (test code = 19041-6) 13.1 14.0-18.0 L [facility] HoustonHematocrit2018-06-27 11:36:00* Test Item Value Reference Range Interpretation Comments Hematocrit (test code = 4544-3) 39.6 38.2-49.6 [facility] HoustonMean Corpuscular Aexrte5326-30-48 11:36:00* Test Item Value Reference Range Interpretation Comments Mean Corpuscular Volume (test code = 787-2) 93.0 81-99 [facility] HoustonMean Corpuscular Zjmgftbnbl7644-23-26 11:36:00* Test Item Value Reference Range Interpretation Comments Mean Corpuscular Hemoglobin (test code = 785-6) 30.8 28-32 [facility] HoustonMean Corpuscular Hemoglobin Concent 2018-03-08 11:36:00* Test Item Value Reference Range Interpretation Comments Mean Corpuscular Hemoglobin Concent (test code = 786-4) 33.1 31-35 [facility] HoustonRed Cell Distribution Xktiz7426-52-68 11:36:00* Test Item Value Reference Range Interpretation Comments Red Cell Distribution Width (test code = 63780-5) 13.4 11.7 -14.4 [facility] HoustonPlatelet Bbpux3740-44-70 11:36:00* Test Item Value Reference Range Interpretation Comments Platelet Count (test code = 777-3) 236 140-360 [facility] HoustonNeutrophils (%) (Auto)2018-03-08 11:36:00 * Test Item Value Reference Range Interpretation Comments Neutrophils (%) (Auto) (test code = 54830-9) 69.8 38.7-80.0 [facility] HoustonLymphocytes (%) (Auto)2018-03-08 11:36:00 * Test Item Value Reference Range Interpretation Comments Lymphocytes (%) (Auto) (test code = 736-9) 19.4 18.0-39.1 [facility] HoustonMonocytes (%) (Auto)2018-03-08 11:36:00* Test Item Value Reference Range Interpretation Comments Monocytes (%) (Auto) (test code = 5905-5) 6.7 4.4-11.3 [facility] HoustonEosinophils (%) (Auto)2018-03-08 11:36:00 * Test Item Value Reference Range Interpretation Comments Eosinophils (%) (Auto) (test code = 713-8) 2.9 0.0-6.0 [facility] HoustonBasophils (%) (Auto)2018-03-08 11:36:00* Test Item Value Reference Range Interpretation Comments Basophils (%) (Auto) (test code = 706-2) 0.5 0.0-1.0 [facility] HoustonIM GRANULOCYTES %2018-03-08 11:36:00* Test Item Value Reference Range Interpretation Comments IM GRANULOCYTES % (test code = IM GRANULOCYTES %) 0.7 0.0- 1.0 [facility] HoustonNeutrophils # (Auto)2018-03-08 11:36:00* Test Item Value Reference Range Interpretation Comments Neutrophils # (Auto) (test code = 751-8) 5.8 2.1-6.9 [facility] HoustonLymphocytes # (Auto)2018-03-08 11:36:00* Test Item Value Reference Range Interpretation Comments Lymphocytes # (Auto) (test code = 19891-3) 1.6 1.0-3.2 [facility] [place]ocytes # (Auto)2018-03-08 11:36:00* Test Item Value Reference Range Interpretation Comments Monocytes # (Auto) (test code = 742-7) 0.6 0.2-0.8 [facility] [place] (Auto)2018-03-08 11:36:00* Test Item Value Reference Range Interpretation Comments Eosinophils # (Auto) (test code = 711-2) 0.2 0.0-0.4 [facility] [place] # (Auto)2018-03-08 11:36:00* Test Item Value Reference Range Interpretation Comments Basophils # (Auto) (test code = 704-7) 0.0 0.0-0.1 [facility] [place] Immature Granulocyte (auto 2018-03-08 11:36:00* Test Item Value Reference Range Interpretation Comments Absolute Immature Granulocyte (auto (leandra t code = Absolute Immature Granulocyte (auto) 0.06 0-0.1 [facility] [place]
== END 2020-07-16 18:14 | disposition home or self-care (01) ==
LOC: ER 15:50
DX: S22.31XA Fracture of one rib, right side, initial encounter for closed fracture (principal); J84.10 Pulmonary fibrosis, unspecified; I10 Essential (primary) hypertension; E11.9 Type 2 diabetes mellitus without complications; E78.5 Hyperlipidemia, unspecified; M54.9 Dorsalgia, unspecified; G89.29 Other chronic pain
CPT/HCPCS: 71101; 99283